=== PATIENT | male | born 1940 | race American Indian/Alaskan Native ===

== ENCOUNTER 2017-10-03 09:46 | Inpatient (IN) | payer MEDICARE ==
[2017-10-03 09:46] VITALS: BMI 28.8
[~2017-10-03 09:46] MED LIST: Insulin NPH Human 100 Units/ml Inj SC ONE
[2017-10-03 11:24] LABS: BASO # 0.1 K/uL (0.0-0.2); BASO % 1.2 % (0.0-2.0); EOS # 0.2 K/uL (0.0-0.7); EOS % 2.1 % (0.0-4.0); HEMOGLOBIN 14.3 g/dL (12.0-18.0); LYMPH # 1.4 K/uL (1.0-4.3); MEAN CELL VOLUME 89.6 fl (80.0-94.0); MEAN CORPUSCULAR HEMOGLOBIN 30.3 pg (27.0-31.0); MEAN CORPUSCULAR HGB CONC 33.8 g/dL (33.0-37.0); MEAN PLATELET VOLUME 8.5 fl (7.2-11.7); MONO # 0.8 K/uL (0.0-0.8); MONO % 8.9 % (0.0-10.0); NEUT # 6.2 K/uL (1.8-7.0); NEUT % 71.8 % (50.0-75.0); RBC 4.72 Mil/uL (4.40-5.90); RED CELL DISTRIBUTION WIDTH 16.1 % (11.5-14.5); WHITE BLOOD COUNT 8.6 K/uL (4.8-10.8)
[2017-10-03 11:36] LABS: PROTHROMBIN TIME 22.5 Seconds (9.8-13.1)
[2017-10-03 11:37] LABS: PARTIAL THROMBOPLASTIN TIME 46.4 Seconds (25.6-37.1)
[2017-10-03 11:55] LABS: CALCIUM 9.4 mg/dL (8.4-10.2)
[2017-10-03 12:07] LABS: TROPONIN I 0.05 ng/mL (0.00-0.120)
--- NOTE | 2017-10-03 12:15 | RAD ---
PROCEDURE: CHEST RADIOGRAPH, 1 VIEW HISTORY: dyspnea COMPARISON: Comparison chest 06/23/2016 FINDINGS: LUNGS: Increased bronchovascular markings suggesting underlying mild pulmonary edema with more confluent opacities in the mid to lower lung zones. Note again made of multiple tiny radiopaque densities overlying the left lower lung field. . Clinical correlation recommended. PLEURA: Questionable tiny bilateral effusions. No apparent pneumothorax CARDIOVASCULAR: Mild cardiomegaly. Sternotomy wires again noted OSSEOUS STRUCTURES: No significant abnormalities. VISUALIZED UPPER ABDOMEN: Normal. OTHER FINDINGS: None. IMPRESSION: Increased bronchovascular markings suggesting underlying mild pulmonary edema with more confluent opacities in the mid to lower lung zones. Note again made of multiple tiny radiopaque densities overlying the left lower lung field. . Clinical correlation recommended. . Questionable tiny bilateral effusions.
--- NOTE | 2017-10-03 13:39 | ED PDOC ---
HPI: SOB/CHF/COPD Time Seen by Provider: 10/03/17 10:20 Chief Complaint (Nursing): Shortness Of Breath Chief Complaint (Provider): Difficulty breathing History Per: Patient History/Exam Limitations: no limitations Onset/Duration Of Symptoms: Days (3) Associated Symptoms: Ankle/Leg Swelling Additional History Per: Patient Additional Complaint(s): 77yo male with history of CHF with low ejection fraction, CAD, CABG, presents to ED with complaints of difficulty breathing for the past 3 days. Patient also reports increased leg swelling for 3 days as well. He states he is compliant with his medication including his water pills but recently, he has been drinking more soda and intaking more salt. He also states he has been sleeping on a warm pillow and in an elevated position. He is not on oxygen at home. He denies any chest pain, fever or cough. Patient has no other medical complaints. Past Medical History Reviewed: Historical Data, Nursing Documentation, Vital Signs Vital Signs: Last Vital Signs Temp 97.7 F 10/04/17 20:01 Pulse 62 10/04/17 20:01 Resp 20 10/04/17 20:01 BP 152/71 H 10/04/17 21:27 Pulse Ox 94 L 10/04/17 20:01 - Medical History PMH: Arthritis, Atrial Fibrillation, CAD, Cardia Arrhythmia, CHF, COPD, CVA, Diabetes, HTN, Hypercholesterolemia, Peripheral Edema, Pneumonia Denies: Alzheimer's Disease, Anemia, Anxiety, Asthma, Bipolar Disorder, Bronchitis, Crohn's Disease, Dementia, Depression, Diverticulitis, Emphysema, Fractures, Gastritis, Gall Bladder Disease, HIV, Hyperthyroidism, Hypothyroidism , Kidney Stones, Migraine, Mitral Valve Prolapse, Multiple Sclerosis, Osteoporosis, Pancreatitis, Paranoia, Parkinson's Disease, Post Traumatic Stress Disorder, Pulmonary Embolism, Chronic Kidney Disease, Rheumatoid Arthritis, Schizophrenia, Seizures, Sickle Cell Disease, Sexually Transmitted Disease, Sleep Apnea, TIA - Surgical History Surgical History: CABG (5x) Denies: Appendectomy, Carotid Endarterectomy, Cholecystectomy, Coronary Stent , Pacemaker, Tonsillectomy - Family History Family History: States: Diabetes, Hypertension - Home Medications Home Medications: Ambulatory Orders Medication Instructions Recorded Aspirin [Ecotrin] 81 mg PO DAILY 10/03/17 Furosemide [Lasix] 40 mg PO QPM 10/03/17 Furosemide [Lasix] 80 mg PO QAM 10/03/17 Insulin Human Isophane (NPH) 30 unit SC BID 10/03/17 [Novolin N] Metoprolol Tartrate [Lopressor] 25 mg PO DAILY 10/03/17 Rivaroxaban [Xarelto] 15 mg PO BID 10/03/17 Zolpidem [Ambien] 10 mg PO HS 10/03/17 amLODIPine [Norvasc] 10 mg PO DAILY 10/03/17 - Allergies Allergies/Adverse Reactions: Allergies Allergy/AdvReac Type Severity Reaction Status Date / Time No Known Allergies Allergy Verified 03/26/16 18:10 Review of Systems ROS Statement: Except As Marked, All Systems Reviewed And Found Negative Constitutional: Negative for: Fever Cardiovascular: Negative for: Chest Pain Respiratory: Positive for: Shortness of Breath. Negative for: Cough Musculoskeletal: Positive for: Other (leg swelling) Physical Exam - Reviewed Nursing Documentation Reviewed: Yes Vital Signs Reviewed: Yes - Physical Exam Appears: Positive for: Non-toxic, No Acute Distress Head Exam: Positive for: ATRAUMATIC, NORMAL INSPECTION, NORMOCEPHALIC Skin: Positive for: Normal Color Eye Exam: Positive for: Normal appearance, EOMI, PERRL Neck: Positive for: Supple Cardiovascular/Chest: Positive for: Regular Rate, Rhythm, Edema Respiratory: Positive for: Normal Breath Sounds. Negative for: Wheezing Gastrointestinal/Abdominal: Positive for: Normal Exam, Soft. Negative for: Tenderness Extremity: Positive for: Normal ROM, Pedal Edema (bilateral pedal and lower leg pitting edema, symmetical). Negative for: Calf Tenderness Neurologic/Psych: Positive for: Alert, Oriented - Laboratory Results Result Diagrams: 10/03/17 11:17 10/04/17 04:20 - ECG ECG: Positive for: Interpreted By Me, Viewed By Me ECG Rhythm: Positive for: Normal QRS, Atrial Fibrillation (without RVR). Negative for: ST/T Changes Rate: 71 O2 Sat by Pulse Oximetry: 96 Medical Decision Making Medical Decision Making: Impression: Dyspnea Differential: CHF exacerbation, ACS, other conditions considered but not listed Plan: -- Labs -- EKG -- Lasix 40 mg IVP -- Nitro 0.4 mg SL Time: 1213 CXR FINDINGS: LUNGS: Increased bronchovascular markings suggesting underlying mild pulmonary edema with more confluent opacities in the mid to lower lung zones. Note again made of multiple tiny radiopaque densities overlying the left lower lung field. . Clinical correlation recommended. PLEURA: Questionable tiny bilateral effusions. No apparent pneumothorax CARDIOVASCULAR: Mild cardiomegaly. Sternotomy wires again noted OSSEOUS STRUCTURES: No significant abnormalities. VISUALIZED UPPER ABDOMEN: Normal. OTHER FINDINGS: None. IMPRESSION: Increased bronchovascular markings suggesting underlying mild pulmonary edema with more confluent opacities in the mid to lower lung zones. Note again made of multiple tiny radiopaque densities overlying the left lower lung field. . Clinical correlation recommended. . Questionable tiny bilateral effusions. Time: 1215 Labs and CXR reveiewed and case discussed with Dr. Suarez who will admit patient under his own service. Case discussed with Dr. Aaron, patient's PCP who is agreeable with plan for admission under Dr. Suarez. Scribe Attestation: Documented by Emerita Renteria, acting as a scribe for Wei Lackey MD. Provider Scribe Attestation: All medical record entries made by the Scribe were at my direction and personally dictated by me. I have reviewed the chart and agree that the record accurately reflects my personal performance of the history, physical exam, medical decision making, and the department course for this patient. I have also personally directed, reviewed, and agree with the discharge instructions and disposition. Disposition - Clinical Impression Clinical Impression: CHF exacerbation - Patient ED Disposition Is Patient to be Admitted: Yes Discussed With : Eric Suarez Doctor Will See Patient In The: Hospital Counseled Patient/Family Regarding: Studies Performed, Diagnosis - Disposition Disposition Time: 12:00 Condition: FAIR - Pt Status Changed To: Hospital Disposition Of: Observation - POA Present On Arrival: Poor Glycemic Control
[2017-10-03] MEDS ORDERED: Influenza Vaccine 18yr & older 0.5 ML/45 MCG SYR IM ONE (15:03)
[2017-10-03] MEDS: Insulin NPH Human 100 Units/ml Inj SC SCH (17:30)
--- NOTE | 2017-10-03 19:59 | CARD ---
APPROVED REPORT EKG Measurement Heart [id number] <Conclusion> Atrial fibrillation Abnormal ECG baseline and motion artefact
[2017-10-04 06:05] LABS: BLOOD UREA NITROGEN 21 mg/dl (9-20); CALCIUM 8.9 mg/dL (8.4-10.2); GFR AFRICAN-AMERICAN > 60; GFR NON-AFRICAN AMERICAN 53
[2017-10-04] MEDS: Insulin NPH Human 100 Units/ml Inj SC SCH ×2 (08:50→16:19)
[2017-10-04] MEDS ORDERED: Potassium Chloride 10 mEq ER Tab PO ONE (09:01)
--- NOTE | 2017-10-04 09:08 | CP.PCM.HP ---
History of Present Illness - History of Present Illness History of Present Illness: This 77-year-old man with a long history of diabetes and hypertension and coronary artery disease which required coronary bypass graft surgery more than 15 years back. He has had subsequent coronary stenting. He has diffuse peripheral vascular disease requiring amputation off her great toe on the right side. He is an ex-smoker with a history of COPD. He has quit smoking more than 15 years back. He has had long-standing chronic kidney disease as a consequence of diabetes and hypertension. He has had atrial fibrillation for which he has been taking an oral anticoagulation. He has had severe left ventricular systolic dysfunction resulting in congestive cardiac failure class 3-4. The patient also has had BPH and required surgery approximately 3 years back following which she had developed severe sepsis and profound renal failure which gradually resolved. Patient was briefly on ventilatory support. The patient admits to occasional indiscretion in his diet with excessive salt included in it. He reports gradually developing worsening dyspnea on exertion and eventual orthopnea. He finally came to the emergency room yesterday and was hospitalized with significant pedal edema and dyspnea. After intravenous Lasix was administered the patient reports significant diuresis and some relief of his dyspnea. Review of his medications at admissions reveals that he was not taking Aldactone and losartan. Physical examination shows an elderly -[place] male who is able to lie slightly propped up in bed and carry on a conversation. His telemetry shows atrial fibrillation with a heart rate that ranges between 70 and 80 bpm irregularly irregular. His blood pressure was 140/80 mmHg. His jugular venous pressure was mildly elevated there was pitting edema over both lower extremities extending up to his knees. His pedal pulses were not palpable. His extremities were warm there was no central or peripheral cyanosis. His buccal mucosa was pink. Scar of sternotomy was evident on his chest. The apex is palpable in the sixth a slightly heaving in character. The first heart sound was normal second heart sound was also normal along apical systolic murmur was audible of mitral regurgitation there were a few scattered rales at both bases and his abdomen was soft and liver and spleen were not palpable. His electrocardiogram showed atrial fibrillation with nonspecific ST-T changes. His lab data showed hemoglobin and hematocrit of 14.3 g and 42.3% respectively. The baby's account and platelet counts were within normal limits. His BUN/ creatinine where 21 and 1.3 mg percent his potassium this morning was 3.2 mg/L. The troponin was negative for any evidence of myocyte injury his proBNP was 1390 pg per mL his chest x-ray was suggestive of mild pulmonary edema. Impression: Congestive cardiac failure which is left ventricular systolic and chronic. Chronic atrial fibrillation. Coronary artery disease with old myocardial infarcts and status post coronary bypass graft surgery. Severe severe peripheral arterial disease with status post amputation of right great toe. Diabetes mellitus and hypertension. Chronic kidney disease stage III. COPD. The patient will receive intravenous furosemide to diurese him and he has been started back on losartan and Aldactone. I will monitor his potassium level and BUN/creatinine closely. Present on Admission - Present on Admission Any Indicators Present on Admission: No Past Patient History - Tetanus Immunizations Tetanus Immunization: Unknown - Past Medical History & Family History Past Medical History?: Yes - Past Social History Smoking Status: Former Smoker - CARDIAC Hx Atrial Fibrillation: Yes Hx Cardia Arrhythmia: Yes Hx Congestive Heart Failure: Yes Hx Hypercholesterolemia: Yes Hx Hypertension: Yes Hx Mitral Valve Prolapse: No Hx Pacemaker: No Hx Peripheral Edema: Yes - PULMONARY Hx Asthma: No Hx Bronchitis: No Hx Chronic Obstructive Pulmonary Disease (COPD): Yes Hx Emphysema: No Hx Pneumonia: Yes Hx Pulmonary Embolism: No Hx Sleep Apnea: No - NEUROLOGICAL Hx Alzheimer's Disease: No Hx Dementia: No Hx Migraine: No Hx Multiple Sclerosis: No Hx Parkinson's Disease: No Hx Seizures: No Hx Transient Ischemic Attacks (TIA): No - HEENT Hx HEENT Problems: Yes - RENAL Hx Chronic Kidney Disease: No Hx Kidney Stones: No - ENDOCRINE/METABOLIC Hx Hyperthyroidism: No Hx Hypothyroidism: No - HEMATOLOGICAL/ONCOLOGICAL Hx Anemia: No Hx Human Immunodeficiency Virus (HIV): No Hx Sickle Cell Disease: No - INTEGUMENTARY Hx Dermatological Problems: No - MUSCULOSKELETAL/RHEUMATOLOGICAL Hx Arthritis: Yes Hx Falls: No Hx Fractures: No Hx Osteoporosis: No Hx Rheumatoid Arthritis: No - GASTROINTESTINAL Hx Crohn's Disease: No Hx Diverticulitis: No Hx Gall Bladder Disease: No Hx Gastritis: No Hx Pancreatitis: No - GENITOURINARY/GYNECOLOGICAL Hx Sexually Transmitted Disorders: No - PSYCHIATRIC Hx Anxiety: No Hx Bipolar Disorder: No Hx Depression: No Hx Paranoia: No Hx Post Traumatic Stress Disorder: No Hx Schizophrenia: No Hx Substance Use: No - SURGICAL HISTORY Hx Appendectomy: No Hx Carotid Endarterectomy: No Hx Cholecystectomy: No Hx Coronary Artery Bypass Graft: Yes (5x) Hx Coronary Stent: No Hx Tonsillectomy: No - ANESTHESIA Hx Anesthesia: Yes Hx Anesthesia Reactions: No Hx Malignant Hyperthermia: No Meds Allergies/Adverse Reactions: Allergies Allergy/AdvReac Type Severity Reaction Status Date / Time No Known Allergies Allergy Verified 03/26/16 18:10 Results - Vital Signs Recent Vital Signs: Last Vital Signs Temp 98.2 F 10/04/17 08:01 Pulse 52 L 10/04/17 08:47 Resp 18 10/04/17 08:01 BP 166/86 H 10/04/17 08:47 Pulse Ox 94 L 10/04/17 08:01 - Labs Result Diagrams: 10/03/17 11:17 10/04/17 04:20 Labs: Laboratory Results - last 24 hr 10/03/17 10/03/17 10/03/17 11:17 11:17 11:17 WBC 8.6 RBC 4.72 Hgb 14.3 Hct 42.3 MCV 89.6 MCH 30.3 MCHC 33.8 RDW 16.1 H Plt Count 436 H MPV 8.5 Neut % (Auto) 71.8 Lymph % (Auto) 16.0 L [place] % (Auto) 8.9 Eos % (Auto) 2.1 Baso % (Auto) 1.2 Neut # (Auto) 6.2 Lymph # (Auto) 1.4 [place] # (Auto) 0.8 Eos # (Auto) 0.2 Baso # (Auto) 0.1 PT 22.5 H INR 2.0 H APTT 46.4 H Sodium 147 Potassium 3.7 Chloride 104 Carbon Dioxide 27 Anion Gap 20 BUN 25 H Creatinine 1.4 Est GFR ( Amer) 59 Est GFR (Non-Af Amer) 49 POC Glucose (mg/dL) Random Glucose 97 Calcium 9.4 Troponin I 0.0500 NT-Pro-B Natriuret Pep 1390 H 10/03/17 10/03/17 10/04/17 17:26 21:40 04:20 WBC RBC Hgb Hct MCV MCH MCHC RDW Plt Count MPV Neut % (Auto) Lymph % (Auto) [place] % (Auto) Eos % (Auto) Baso % (Auto) Neut # (Auto) Lymph # (Auto) [place] # (Auto) Eos # (Auto) Baso # (Auto) PT INR APTT Sodium 146 Potassium 3.2 L Chloride 107 Carbon Dioxide 28 Anion Gap 14 BUN 21 H Creatinine 1.3 Est GFR ( Amer) > 60 Est GFR (Non-Af Amer) 53 POC Glucose (mg/dL) 89 71 Random Glucose 50 L Calcium 8.9 Troponin I NT-Pro-B Natriuret Pep 10/04/17 10/04/17 06:06 07:01 WBC RBC Hgb Hct MCV MCH MCHC RDW Plt Count MPV Neut % (Auto) Lymph % (Auto) [place] % (Auto) Eos % (Auto) Baso % (Auto) Neut # (Auto) Lymph # (Auto) [place] # (Auto) Eos # (Auto) Baso # (Auto) PT INR APTT Sodium Potassium Chloride Carbon Dioxide Anion Gap BUN Creatinine Est GFR ( Amer) Est GFR (Non-Af Amer) POC Glucose (mg/dL) 47 L 88 Random Glucose Calcium Troponin I NT-Pro-B Natriuret Pep
[2017-10-05 06:02] LABS: ALB/GLOB RATIO 0.9 (1.0-2.1); ALBUMIN 3.6 g/dL (3.5-5.0); ALT/SGPT 25 U/L (21-72); AST/SGOT 27 U/L (17-59); BLOOD UREA NITROGEN 21 mg/dl (9-20); GFR AFRICAN-AMERICAN > 60; GFR NON-AFRICAN AMERICAN 53
[2017-10-05] MEDS ORDERED: Insulin NPH Human 100 Units/ml Inj SC ONE (06:41)
[2017-10-05] MEDS ORDERED: Potassium Chloride 20 mEq ER Tab PO ONE (06:46)
--- NOTE | 2017-10-05 06:46 | CP.PCM.PN ---
Subjective - Date & Time of Evaluation Date of Evaluation: 10/05/17 Time of Evaluation: 06:40 - Subjective Subjective: Diuresed well following IV Lasix Still reports moderate degree of dyspnoea No orthopnoea A Fib at 70-80 BPM, BP 130/70 mm Hg JVP mildly elevated, pedal oedema + (receeding) Pt's accu-checks have been in 40s (yesterday and today) In spite of a sandwitch before breakfast Have reduced Insulin dose from 30 units in PM to 20 units Will get IV Lasix today as well Today's Labs: K+ still low (replacement ordered) Renal function stable. Objective - Vital Signs/Intake and Output Vital Signs (last 24 hours): Temp Pulse Resp BP Pulse Ox 98.3 F 96 H 20 147/62 98 10/05/17 05:00 10/05/17 05:00 10/05/17 05:00 10/05/17 05:00 10/05/17 05:00 Intake and Output: 10/04/17 10/05/17 18:59 06:59 Intake Total 1000 Output Total 2 Balance 998 - Medications Medications: Current Medications Amlodipine Besylate (Norvasc) 10 mg PO DAILY [facility] Last Admin: 10/04/17 08:45 Dose: 10 mg Aspirin (Ecotrin) 81 mg PO DAILY [facility] Last Admin: 10/04/17 08:45 Dose: 81 mg Furosemide (Lasix) 40 mg IVP BID [facility] Last Admin: 10/04/17 21:27 Dose: 40 mg Insulin Human NPH (Humulin N) 20 units SC ONCE ONE Stop: 10/05/17 06:42 Losartan Potassium (Cozaar) 25 mg PO DAILY [facility] Last Admin: 10/04/17 10:39 Dose: 25 mg Metoprolol Tartrate (Lopressor) 25 mg PO DAILY [facility] Last Admin: 10/04/17 08:47 Dose: 25 mg Rivaroxaban (Xarelto) 15 mg PO BID [facility] PRN Reason: Protocol Last Admin: 10/04/17 16:20 Dose: 15 mg Spironolactone (Aldactone) 25 mg PO DAILY [facility] Last Admin: 10/04/17 10:37 Dose: 25 mg Zolpidem Tartrate (Ambien) 5 mg PO HS [facility] Last Admin: 10/04/17 23:26 Dose: 5 mg - Labs Labs: 10/03/17 11:17 10/05/17 04:25 PT 22.5 Seconds (9.8-13.1) H 10/03/17 11:17 INR 2.0 (0.9-1.2) H 10/03/17 11:17 APTT 46.4 Seconds (25.6-37.1) H 10/03/17 11:17
[2017-10-05] MEDS: Insulin NPH Human 100 Units/ml Inj SC SCH (09:00)
[2017-10-05] MEDS ORDERED: Insulin NPH Human 100 Units/ml Inj SC SCH (22:00)
[2017-10-06 07:15] LABS: ALB/GLOB RATIO 0.9 (1.0-2.1); ALBUMIN 3.4 g/dL (3.5-5.0); ALT/SGPT 28 U/L (21-72); AST/SGOT 34 U/L (17-59); BLOOD UREA NITROGEN 21 mg/dl (9-20); CALCIUM 9.1 mg/dL (8.4-10.2); GFR AFRICAN-AMERICAN > 60; GFR NON-AFRICAN AMERICAN 58
[2017-10-06] MEDS: Insulin NPH Human 100 Units/ml Inj SC SCH (09:14)
[2017-10-06] MEDS ORDERED: Insulin NPH Human 100 Units/ml Inj SC SCH (09:38)
--- NOTE | 2017-10-06 09:39 | CP.PCM.PN ---
Subjective - Date & Time of Evaluation Date of Evaluation: 10/06/17 Time of Evaluation: 09:25 - Subjective Subjective: Fasting blood sugar was 80 mg% (was 40mg yesterday) Dose of Insulin had been reduced from 30units to 20units yesterday Insulin dose reduced further to 15 units in PM Still moderate dyspnoea on ambulation Pedal oedema less but still present A Fib at 68 BPM/ BP 140/76 mm Hg No S3 gallop OCC BASAL RALES+ Will get Lasix IV twice a day Labs: Creatinin1.2 mg% (Electrolytes normal) Lactulose for constipation Objective - Vital Signs/Intake and Output Vital Signs (last 24 hours): Temp Pulse Resp BP Pulse Ox 97.4 F L 73 20 167/84 H 93 L 10/06/17 08:18 10/06/17 09:13 10/06/17 08:18 10/06/17 09:13 10/06/17 08:18 - Medications Medications: Current Medications Amlodipine Besylate (Norvasc) 10 mg PO DAILY [facility] Last Admin: 10/06/17 09:13 Dose: 10 mg Aspirin (Ecotrin) 81 mg PO DAILY [facility] Last Admin: 10/06/17 09:13 Dose: 81 mg Furosemide (Lasix) 40 mg IVP BID [facility] Last Admin: 10/06/17 09:10 Dose: 40 mg Insulin Human NPH (Humulin N) 30 units SC QAM [facility] Last Admin: 10/06/17 09:14 Dose: 30 units Insulin Human NPH (Humulin N) 15 units SC HS [facility] Losartan Potassium (Cozaar) 25 mg PO DAILY [facility] Last Admin: 10/06/17 09:13 Dose: 25 mg Metoprolol Tartrate (Lopressor) 25 mg PO DAILY [facility] Last Admin: 10/06/17 09:13 Dose: 25 mg Rivaroxaban (Xarelto) 15 mg PO BID [facility] PRN Reason: Protocol Last Admin: 10/06/17 09:11 Dose: 15 mg Spironolactone (Aldactone) 25 mg PO DAILY [facility] Last Admin: 10/06/17 09:12 Dose: 25 mg Zolpidem Tartrate (Ambien) 5 mg PO HS [facility] Last Admin: 10/05/17 22:48 Dose: 5 mg - Labs Labs: 10/03/17 11:17 10/06/17 05:39 PT 22.5 Seconds (9.8-13.1) H 10/03/17 11:17 INR 2.0 (0.9-1.2) H 10/03/17 11:17 APTT 46.4 Seconds (25.6-37.1) H 10/03/17 11:17
[2017-10-07 05:13] VITALS: RESP 20
[2017-10-07 07:49] LABS: ALB/GLOB RATIO 0.9 (1.0-2.1); ALBUMIN 3.4 g/dL (3.5-5.0); ALT/SGPT 23 U/L (21-72); AST/SGOT 39 U/L (17-59); BLOOD UREA NITROGEN 22 mg/dl (9-20); CALCIUM 9.2 mg/dL (8.4-10.2); GFR AFRICAN-AMERICAN > 60; GFR NON-AFRICAN AMERICAN 58
[2017-10-07 08:05] VITALS: BP 160/69; PULSE 84; TEMP 98.1; O2SAT 94
[2017-10-07] MEDS ORDERED: Potassium Chloride 20 mEq ER Tab PO ONE (08:12)
[2017-10-07] MEDS: Insulin NPH Human 100 Units/ml Inj SC SCH (08:23)
--- NOTE | 2017-10-07 09:35 | CP.PCM.PN ---
Subjective - Date & Time of Evaluation Date of Evaluation: 10/07/17 Time of Evaluation: 09:15 - Subjective Subjective: Has walked around nurses stn 6 times yesterday! Has diuresed well with IV lasix A Fib at 70 BPM BP 140/74 mm Hg Pedal oedema has mostly resolved JVP flat, no rales Creatinin1.2 mg (1.4 mg at admission!) Will aloow pt to go home on present Rx Labs in 1 Wk, see me in 10 day. Objective - Vital Signs/Intake and Output Vital Signs (last 24 hours): Temp Pulse Resp BP Pulse Ox 98.1 F 84 20 160/69 H 94 L 10/07/17 08:05 10/07/17 08:25 10/07/17 08:05 10/07/17 08:25 10/07/17 08:05 - Medications Medications: Current Medications Amlodipine Besylate (Norvasc) 10 mg PO DAILY [facility] Last Admin: 10/07/17 08:25 Dose: 10 mg Aspirin (Ecotrin) 81 mg PO DAILY [facility] Last Admin: 10/07/17 08:23 Dose: 81 mg Furosemide (Lasix) 40 mg IVP BID [facility] Last Admin: 10/07/17 08:24 Dose: 40 mg Insulin Human NPH (Humulin N) 30 units SC QAM [facility] Last Admin: 10/07/17 08:23 Dose: 30 units Insulin Human NPH (Humulin N) 15 units SC HS [facility] Last Admin: 10/06/17 22:18 Dose: 15 u Losartan Potassium (Cozaar) 25 mg PO DAILY [facility] Last Admin: 10/07/17 08:23 Dose: 25 mg Metoprolol Tartrate (Lopressor) 25 mg PO DAILY [facility] Last Admin: 10/07/17 08:25 Dose: 25 mg Rivaroxaban (Xarelto) 15 mg PO BID [facility] PRN Reason: Protocol Last Admin: 10/07/17 08:25 Dose: 15 mg Spironolactone (Aldactone) 25 mg PO DAILY [facility] Last Admin: 10/07/17 08:22 Dose: 25 mg - Labs Labs: 10/03/17 11:17 10/07/17 05:30 PT 22.5 Seconds (9.8-13.1) H 10/03/17 11:17 INR 2.0 (0.9-1.2) H 10/03/17 11:17 APTT 46.4 Seconds (25.6-37.1) H 10/03/17 11:17
--- NOTE | 2017-10-10 08:08 | CP.PCM.DIS ---
Provider - Provider Date of Admission: 10/03/17 12:15 Attending physician: Eric Suarez MD Time Spent in preparation of Discharge (in minutes): 30 Hospital Course - Lab Results Lab Results: Most Recent Lab Values WBC 8.6 K/uL (4.8-10.8) 10/03/17 11:17 RBC 4.72 Mil/uL (4.40-5.90) 10/03/17 11:17 Hgb 14.3 g/dL (12.0-18.0) 10/03/17 11:17 Hct 42.3 % (35.0-51.0) 10/03/17 11:17 MCV 89.6 fl (80.0-94.0) 10/03/17 11:17 MCH 30.3 pg (27.0-31.0) 10/03/17 11:17 MCHC 33.8 g/dL (33.0-37.0) 10/03/17 11:17 RDW 16.1 % (11.5-14.5) H 10/03/17 11:17 Plt Count 436 K/uL (130-400) H 10/03/17 11:17 MPV 8.5 fl (7.2-11.7) 10/03/17 11:17 Neut % (Auto) 71.8 % (50.0-75.0) 10/03/17 11:17 Lymph % (Auto) 16.0 % (20.0-40.0) L 10/03/17 11:17 [place] % (Auto) 8.9 % (0.0-10.0) 10/03/17 11:17 Eos % (Auto) 2.1 % (0.0-4.0) 10/03/17 11:17 Baso % (Auto) 1.2 % (0.0-2.0) 10/03/17 11:17 Neut # (Auto) 6.2 K/uL (1.8-7.0) 10/03/17 11:17 Lymph # (Auto) 1.4 K/uL (1.0-4.3) 10/03/17 11:17 [place] # (Auto) 0.8 K/uL (0.0-0.8) 10/03/17 11:17 Eos # (Auto) 0.2 K/uL (0.0-0.7) 10/03/17 11:17 Baso # (Auto) 0.1 K/uL (0.0-0.2) 10/03/17 11:17 PT 22.5 Seconds (9.8-13.1) H 10/03/17 11:17 INR 2.0 (0.9-1.2) H 10/03/17 11:17 APTT 46.4 Seconds (25.6-37.1) H 10/03/17 11:17 Sodium 146 mmol/l (132-148) 10/07/17 05:30 Potassium 3.5 MMOL/L (3.6-5.0) L 10/07/17 05:30 Chloride 105 mmol/L (98-107) 10/07/17 05:30 Carbon Dioxide 29 mmol/L (22-30) 10/07/17 05:30 Anion Gap 16 (10-20) 10/07/17 05:30 BUN 22 mg/dl (9-20) H 10/07/17 05:30 Creatinine 1.2 mg/dl (0.8-1.5) 10/07/17 05:30 Est GFR ( Amer) > 60 10/07/17 05:30 Est GFR (Non-Af Amer) 58 10/07/17 05:30 POC Glucose (mg/dL) 89 mg/dL (65-110) 10/07/17 05:23 Random Glucose 98 mg/dL (75-110) 10/07/17 05:30 Calcium 9.2 mg/dL (8.4-10.2) 10/07/17 05:30 Total Bilirubin 1.7 mg/dl (0.2-1.3) H 10/07/17 05:30 AST 39 U/L (17-59) 10/07/17 05:30 ALT 23 U/L (21-72) 10/07/17 05:30 Alkaline Phosphatase 95 U/L (38-126) 10/07/17 05:30 Troponin I 0.0500 ng/mL (0.00-0.120) 10/03/17 11:17 NT-Pro-B Natriuret Pep 1390 pg/ml (0-900) H 10/03/17 11:17 Total Protein 7.3 G/DL (6.3-8.2) 10/07/17 05:30 Albumin 3.4 g/dL (3.5-5.0) L 10/07/17 05:30 Globulin 3.9 gm/dL (2.2-3.9) 10/07/17 05:30 Albumin/Globulin Ratio 0.9 (1.0-2.1) L 10/07/17 05:30 - Hospital Course Hospital Course: This 77-year-old -[place] man, with known coronary artery disease were required coronary bypass graft surgery approximately 13-14 years back and was known to have severe congestive cardiac failure with chronic atrial fibrillation for which she takes an oral anticoagulation, came into the hospital complaining of profound shortness of breath and orthopnea for the preceding 3 days, and was found to have significant volume overload. The patient was a hypertensive and diabetic was known to have chronic kidney disease stage III, and severe peripheral vascular disease due to which she had lost the great toe on his right foot. The patient was being treated with an QUENTIN inhibitor and a beta edilma as well as a loop diuretics along with Aldactone. On arrival in the emergency room he was found to have pedal edema mildly elevated jugular venous pressure and pulmonary congestion on chest x-ray. Physical examination shows an elderly man who was propped up in bed and reported marked resolution of his symptoms after intravenous diuretics was given in the emergency room and the patient has had significant diuresis. Over the next few days the patient was given intravenous furosemide 40 mg twice a day along with oral Aldactone and reported significant diuresis. His BUN/ creatinine and electrolytes were closely monitored and both of these remained stable. His hemoglobin and hematocrit were 14.3 g and 42.3% respectively. His electrocardiogram showed atrial fibrillation with nonspecific ST-T wave changes. No Q waves were detected on his electro-cardiogram. An echocardiogram done in March 2016 had shown severe generalized hypokinesia with an estimated left ventricular ejection fraction in the range of 25-30% along with significant mitral regurgitation and an elevated right ventricular systolic pressure. The patient diuresed well and was finally sent home taking his medications which consisted off an ARB and Aldactone as well as 40 mg of Lasix taken twice a day. His does off insulin was reduced to 15 units in the evening from 30 units in the evening when the patient was found to be significantly hypoglycemic (blood sugar of 40 and 44 mg percent) on Accu-Cheks done early in the morning. He continued to use 30 units of insulin in the morning. The patient was instructed to weigh himself every day and was stopped again a blood test within 7 days of his discharge so that his BUN/creatinine as well as potassium could be checked. He was asked to see me within 10 days of his discharge for follow-up examination. His final diagnosis was congestive cardiac failure which was left ventricular, systolic and acute on chronic. Coronary artery disease with status post coronary bypass graft surgery. Chronic atrial fibrillation. Diffuse peripheral arterial disease with status post amputation of his right great toe. Chronic kidney disease stage III. Diabetes mellitus and hypertension. Benign prostatitic hypertrophy with status post TURP. COPD. The patient's condition at the time of discharge was much improved. Diet medication activities explained to him. He will return for a follow-up visit in my office within 10 days. Discharge Exam - Head Exam Head Exam: ATRAUMATIC, NORMAL INSPECTION, NORMOCEPHALIC Discharge Plan - Discharge Medications Prescriptions: Spironolactone [Aldactone] 25 mg PO DAILY #30 tab - Follow Up Plan Condition: FAIR Disposition: HOME/ ROUTINE Instructions: Heart Failure, Adult (DC), Exacerbation of COPD (DC) Additional Instructions: follow up with on 10/13/17 at 3:20pm Referrals: Eric Suarez MD [Family Provider] -
== END 2017-10-07 11:30 | disposition home or self-care (01) | DRG 291 ==
LOC: H.ER 09:46 → OBSVTOIN 12:15 → H.ERHOLD 12:15 → H.TEL 14:49
PROVIDERS: ADMIT Internal Medicine Cardiovascular Disease; ATTEND Internal Medicine Cardiovascular Disease
PROC: 3E0234Z Introduction of Serum, Toxoid and Vaccine into Muscle, Percutaneous Approach (ICD-10-PCS; principal; 2017-10-06)
DX: I13.0 Hypertensive heart and chronic kidney disease with heart failure and stage 1 through stage 4 chronic kidney disease, or unspecified chronic kidney disease (principal); I50.23 Acute on chronic systolic (congestive) heart failure; E11.22 Type 2 diabetes mellitus with diabetic chronic kidney disease; E11.51 Type 2 diabetes mellitus with diabetic peripheral angiopathy without gangrene; I48.2 Chronic atrial fibrillation; I34.0 Nonrheumatic mitral (valve) insufficiency; N18.3 Chronic kidney disease, stage 3 (moderate); N40.0 Benign prostatic hyperplasia without lower urinary tract symptoms; Z89.411 Acquired absence of right great toe; I25.10 Atherosclerotic heart disease of native coronary artery without angina pectoris; Z95.1 Presence of aortocoronary bypass graft; Z95.5 Presence of coronary angioplasty implant and graft; J44.9 Chronic obstructive pulmonary disease, unspecified; Z86.73 Personal history of transient ischemic attack (TIA), and cerebral infarction without residual deficits; E78.00 Pure hypercholesterolemia, unspecified; Z87.891 Personal history of nicotine dependence; M19.90 Unspecified osteoarthritis, unspecified site; Z23 Encounter for immunization; I25.2 Old myocardial infarction

== ENCOUNTER 2018-07-04 09:21 | Inpatient (IN) | payer MEDICARE ==
[2018-07-04 09:22] VITALS: BMI 28.8
--- NOTE | 2018-07-04 10:14 | ED PDOC ---
HPI: SOB/CHF/COPD Time Seen by Provider: 07/04/18 09:42 Chief Complaint (Nursing): Shortness Of Breath Chief Complaint (Provider): Shortness of breath History Per: Patient History/Exam Limitations: no limitations Onset/Duration Of Symptoms: Other (x2 weeks) Current Symptoms Are (Timing): Still Present Additional Complaint(s): 78 year old male, with a past medical history of atrial fibrillation, CAD, and CHF, presents to the ED with shortness of breath for the past 2 weeks. Patient denies chest pain. He reports he has been noncompliant with Lasix and was restarted by Dr. Schroeder without relief. He has a 10 step dyspnea on exertion. He denies orthopnea. PMD: Eric Mandel V Past Medical History Reviewed: Historical Data, Nursing Documentation, Vital Signs Vital Signs: Last Vital Signs Temp 97.5 F L 07/04/18 09:30 Pulse 80 07/04/18 09:30 Resp 20 07/04/18 09:30 BP 125/69 07/04/18 09:30 Pulse Ox 95 07/04/18 09:30 - Medical History PMH: Arthritis, Atrial Fibrillation, CAD, Cardia Arrhythmia, CHF, COPD, CVA, Diabetes, HTN, Hypercholesterolemia, Peripheral Edema, Pneumonia Denies: Alzheimer's Disease, Anemia, Anxiety, Asthma, Bipolar Disorder, Bronchitis, Crohn's Disease, Dementia, Depression, Diverticulitis, Emphysema, Fractures, Gastritis, Gall Bladder Disease, HIV, Hyperthyroidism, Hypothyroidism, Kidney Stones, Migraine, Mitral Valve Prolapse, Multiple Sclerosis, Osteoporosis, Pancreatitis, Paranoia, Parkinson's Disease, Post Traumatic Stress Disorder, Pulmonary Embolism, Chronic Kidney Disease, Rheumatoid Arthritis, Schizophrenia, Seizures, Sickle Cell Disease, Sexually Tr ansmitted Disease, Sleep Apnea, TIA - Surgical History Surgical History: CABG (5x), Coronary Stent Denies: Appendectomy, Carotid Endarterectomy, Cholecystectomy, Pacemaker, Tonsillectomy Other surgeries: Coronary bypass - Family History Family History: States: Diabetes, Hypertension - Home Medications Home Medications: Ambulatory Orders Medication Instructions Recorded Furosemide [Lasix] 80 mg PO BID 10/03/17 Rivaroxaban [Xarelto] 15 mg PO QPM 10/03/17 Zolpidem [Ambien] 10 mg PO HS 10/03/17 amLODIPine [Norvasc] 10 mg PO DAILY 10/03/17 Losartan [Cozaar] 25 mg PO DAILY tab 10/07/17 Insulin Human Isophane (NPH) 30 unit SC BID 07/04/18 [Novolin N] Spironolactone [Aldactone] 50 mg PO DAILY 07/04/18 Tamsulosin [Flomax] 0.4 mg PO HS 07/04/18 Insulin Human NPH [Humulin N] 30 units SC BID vial 07/07/18 Losartan [Cozaar] 25 mg PO DAILY tab 07/07/18 Rivaroxaban [Xarelto] 15 mg PO QD5 tab 07/07/18 Spironolactone [Aldactone] 50 mg PO DAILY tab 07/07/18 amLODIPine [Norvasc] 10 mg PO DAILY tab 07/07/18 - Allergies Allergies/Adverse Reactions: Allergies Allergy/AdvReac Type Severity Reaction Status Date / Time No Known Allergies Allergy Verified 03/26/16 18:10 Review of Systems ROS Statement: Except As Marked, All Systems Reviewed And Found Negative Cardiovascular: Negative for: Chest Pain Respiratory: Positive for: Shortness of Breath, SOB with Exertion. Negative for: Other (orthopnea) Physical Exam - Reviewed Nursing Documentation Reviewed: Yes Vital Signs Reviewed: Yes - Physical Exam Appears: Positive for: No Acute Distress Head Exam: Positive for: ATRAUMATIC, NORMOCEPHALIC Skin: Positive for: Normal Color, Warm, Dry Eye Exam: Positive for: Normal appearance Neck: Positive for: Normal, Painless ROM Cardiovascular/Chest: Positive for: Irregularly Irregular Respiratory: Positive for: Decreased Breath Sounds (in the right base) Gastrointestinal/Abdominal: Positive for: Normal Exam, Soft. Negative for: Tenderness Extremity: Positive for: Other (3+ pitting edema bilaterally) Neurologic/Psych: Positive for: Alert. Negative for: Motor/Sensory Deficits - Laboratory Results Result Diagrams: 07/04/18 10:10 07/07/18 04:20 - ECG Interpretation Of ECG: A fib @ 57. O2 Sat by Pulse Oximetry: 95 (RA) Pulse Ox Interpretation: Normal Medical Decision Making Medical Decision Making: Initial Impression: CHF exacerbation Initial Plan: --ECG --ProBNP stat --CMP --ED urine dipstick --PTT --Prothrombin time --Chest X-ray --Urinalysis Accession No. : [id number] Patient Name / ID : MICHAELA RODRIGUEZ / [id number] Exam Date : 07/04/2018 09:39:37 ( Approved ) Study Comment : Sex / Age : M / 78Y Creator : Chen Jacobs MD Dictator : Chen Jacobs MD Rn Patient Care : Environmental Management Specialist : Chen Jacobs MD Approver2 : Report Date : 07/04/2018 10:17:03 My Comment : Date of service: 07/04/2018 HISTORY: SOB COMPARISON: 10/03/2017 FINDINGS: LUNGS: The lungs are well inflated and clear. PLEURA: No pleural effusions or pneumothorax. CARDIOVASCULAR: There is moderate cardiomegaly. Status post CABG. No aortic atherosclerotic ca lcification present. OSSEOUS STRUCTURES: Within normal limits for the patient's age. VISUALIZED UPPER ABDOMEN: Normal. OTHER FINDINGS: None. IMPRESSION: No active pulmonary disease. ----- Scribe Attestation: Documented by Thanh Reyes acting as a scribe for Christy Cavazos MD. Provider Scribe Attestation: All medical record entries made by the Scribe were at my direction and personally dictated by me. I have reviewed the chart and agree that the record accurately reflects my personal performance of the history, physical exam, medical decision making, and the department course for this patient. I have also personally directed, reviewed, and agree with the discharge instructions and disposition. Disposition - Clinical Impression Clinical Impression: CHF exacerbation - Patient ED Disposition Is Patient to be Admitted: Yes - Disposition Disposition: Routine/Home Disposition Time: 11:08 Condition: STABLE - Pt Status Changed To: Hospital Disposition Of: Inpatient - Admit Certification Admit to Inpatient:: After my assessment, the patient will require hospitalization for at least two midnights. This is because of the severity of symptoms shown, intensity of services needed, and/or the medical risk in this patient being treated as an outpatient. - POA Present On Arrival: None
--- NOTE | 2018-07-04 10:20 | RAD ---
Date of service: 07/04/2018 HISTORY: SOB COMPARISON: 10/03/2017 FINDINGS: LUNGS: The lungs are well inflated and clear. PLEURA: No pleural effusions or pneumothorax. CARDIOVASCULAR: There is moderate cardiomegaly. Status post CABG. No aortic atherosclerotic calcification present. OSSEOUS STRUCTURES: Within normal limits for the patient's age. VISUALIZED UPPER ABDOMEN: Normal. OTHER FINDINGS: None. IMPRESSION: No active pulmonary disease.
[2018-07-04 10:30] LABS: INR 1.2; PROTHROMBIN TIME 13.9 Seconds (9.8-13.1)
[2018-07-04 10:33] LABS: PARTIAL THROMBOPLASTIN TIME 36.1 Seconds (25.6-37.1)
[2018-07-04 10:36] LABS: BASO # 0.1 K/uL (0.0-0.2); BASO % 1.5 % (0.0-2.0); EOS # 0.2 K/uL (0.0-0.7); EOS % 1.9 % (0.0-4.0); HEMOGLOBIN 12.8 g/dL (12.0-18.0); LYMPH % 12.5 % (20.0-40.0); MEAN CELL VOLUME 90.6 fl (80.0-94.0); MEAN CORPUSCULAR HEMOGLOBIN 29.3 pg (27.0-31.0); MEAN CORPUSCULAR HGB CONC 32.3 g/dL (33.0-37.0); MEAN PLATELET VOLUME 8.8 fl (7.2-11.7); MONO # 0.8 K/uL (0.0-0.8); MONO % 9.6 % (0.0-10.0); NEUT # 5.9 K/uL (1.8-7.0); NEUT % 74.5 % (50.0-75.0); NRBC % 0.1 % (0.0-0.0); RBC 4.37 Mil/uL (4.40-5.90); RED CELL DISTRIBUTION WIDTH 16.2 % (11.5-14.5); WHITE BLOOD COUNT 7.9 K/uL (4.8-10.8)
[2018-07-04 10:46] LABS: ALBUMIN 3.7 g/dL (3.5-5.0); CALCIUM 9.4 mg/dL (8.4-10.2)
[2018-07-04 11:49] LABS: URINE BILIRUBIN NEGATIVE (NEGATIVE); URINE BLOOD NEGATIVE (NEGATIVE); URINE CLARITY CLEAR (Clear); URINE COLOR STRAW (YELLOW); URINE GLUCOSE (UA) NEG (NEGATIVE); URINE LEUKOCYTE ESTERASE NEG Leu/uL (Negative); URINE PROTEIN NEGATIVE (NEGATIVE); URINE UROBILINOGEN 0.2-1.0 mg/dL (0.2-1.0)
--- NOTE | 2018-07-04 11:54 | CP.PCM.HP ---
History of Present Illness - History of Present Illness History of Present Illness: this 65-[id number]-[id number]-[place] manwith a long history of hypertension diabetes mellitus and dyslipidemia who has had coronary artery disease requiring coronary bypass graft surgery in 2006 followed by stenting off left circumflex artery and LAD in March 2009 and who has had chronic atrial fibrillation with severe congestive cardiac failure requiring aggressive dialytic therapy, has come into the hospital after having developed significant pedal edema and worsening dyspnea on exertion that did not respond to taking 120 mg of furosemide daily at home for last 4 days. The patient has had diffuse vascular disease resulting in a cerebrovascular accident approximately 15 years back and has had severe peripheral arterial disease requiring amputation off a second toe on the left foot. There is severe mitral regurgitation and left ventricular systolic dysfunction resulting in congestive cardiac failure which is left ventricular systolic and chronic. The patient also has had TURP for an enlarged prostate. There is a history of chronic cigarette use in the past with significant COPD. Physical examination shows an elderly -[place] male who is alert awake coherent and afebrile. He breathes at 16-18 breaths per minute while propped up in the bed. He has a heart rate of 62 bpm and regular. His blood pressure was 128/74 mmHg. His jugular venous pressure was mildly elevated and there was p itting edema over his legs up to his ankle. His pedal pulses were not palpable. His extremities were slightly cool to touch.there was no central or peripheral cyanosis. The skin was dry.a scar of sternotomy was evident. The apex was in the sixth space slightly heaving in character. The first and second heart sounds were distant but normal long apical systolic murmur of mitral regurgitation was evident. The air entry was reduced at both bases. Few rales were audible. There were no carotid bruits. His electrocardiogram showed atrial rate of 180 bpm with 3-1 AV conduction. there was evidence of an old inferior wall myocardial infarction. the chest x-ray reveals cardiomegaly. Costophrenic angles were clear there was pulmonary congestion. Lab tests show a normal hemoglobin with mildly elevated BUN/creatinine and a normal potassium level. Impression: congestive cardiac failure which is left ventricular systolic and acute on chronic. Chronic atrial flutter fibrillation. PAD with status post amputation of second toe on left side. Old cerebrovascular accident. COPD. Hypertension, diabetes and dyslipidemia. Coronary artery disease with status post coronary bypass graft surgery and status post coronary stenting. Mitral regurgitation with significant left ventricular systolic dysfunction. The patient is being given intravenous furosemide along with oral spinal lactone. He will continue to receive losartan and metoprolol as beta-blockade. He will be weighed every day to monitor his progress and his electrolytes and BUN/creatinine would be monitored as well. Present on Admission - Present on Admission Any Indicators Present on Admission: No Past Patient History - Tetanus Immunizations Tetanus Immunization: Unknown - Past Medical History & Family History Past Medical History?: Yes - Past Social History Smoking Status: Former Smoker - CARDIAC Hx Atrial Fibrillation: Yes Hx Cardia Arrhythmia: Yes Hx Congestive Heart Failure: Yes Hx Hypercholesterolemia: Yes Hx Hypertension: Yes Hx Mitral Valve Prolapse: No Hx Pacemaker: No Hx Peripheral Edema: Yes - PULMONARY Hx Asthma: No Hx Bronchitis: No Hx Chronic Obstructive Pulmonary Disease (COPD): Yes Hx Emphysema: No Hx Pneumonia: Yes Hx Pulmonary Embolism: No Hx Sleep Apnea: No - NEUROLOGICAL Hx Alzheimer's Disease: No Hx Dementia: No Hx Migraine: No Hx Multiple Sclerosis: No Hx Parkinson's Disease: No Hx Seizures: No Hx Transient Ischemic Attacks (TIA): No - HEENT Hx HEENT Problems: Yes - RENAL Hx Chronic Kidney Disease: No Hx Kidney Stones: No - ENDOCRINE/METABOLIC Hx Hyperthyroidism: No Hx Hypothyroidism: No - HEMATOLOGICAL/ONCOLOGICAL Hx Anemia: No Hx Human Immunodeficiency Virus (HIV): No Hx Sickle Cell Disease: No - INTEGUMENTARY Hx Dermatological Problems: No - MUSCULOSKELETAL/RHEUMATOLOGICAL Hx Arthritis: Yes Hx Fractures: No Hx Osteoporosis: No Hx Rheumatoid Arthritis: No - GASTROINTESTINAL Hx Crohn's Disease: No Hx Diverticulitis: No Hx Gall Bladder Disease: No Hx Gastritis: No Hx Pancreatitis: No - GENITOURINARY/GYNECOLOGICAL Hx Sexually Transmitted Disorders: No - PSYCHIATRIC Hx Anxiety: No Hx Bipolar Disorder: No Hx Depression: No Hx Paranoia: No Hx Post Traumatic Stress Disorder: No Hx Schizophrenia: No - SURGICAL HISTORY Hx Appendectomy: No Hx Carotid Endarterectomy: No Hx Cholecystectomy: No Hx Coronary Artery Bypass Graft: Yes (5x) Hx Coronary Stent: Yes Hx Tonsillectomy: No - ANESTHESIA Hx Anesthesia: Yes Hx Anesthesia Reactions: No Hx Malignant Hyperthermia: No Meds Allergies/Adverse Reactions: Allergies Allergy/AdvReac Type Severity Reaction Status Date / Time No Known Allergies Allergy Verified 03/26/16 18:10 Results - Vital Signs Recent Vital Signs: Last Vital Signs Temp 97.5 F L 07/04/18 09:30 Pulse 80 07/04/18 09:30 Resp 20 07/04/18 09:30 BP 136/81 07/04/18 11:25 Pulse Ox 95 07/04/18 11:32 - Labs Result Diagrams: 07/04/18 10:10 07/04/18 10:10 Labs: Laboratory Results - last 24 hr 07/04/18 07/04/18 07/04/18 10:10 10:10 10:10 WBC 7.9 RBC 4.37 L Hgb 12.8 Hct 39.6 MCV 90.6 MCH 29.3 MCHC 32.3 L RDW 16.2 H Plt Count 445 H MPV 8.8 Neut % (Auto) 74.5 Lymph % (Auto) 12.5 L [place] % (Auto) 9.6 Eos % (Auto) 1.9 Baso % (Auto) 1.5 Neut # (Auto) 5.9 Lymph # (Auto) 1.0 [place] # (Auto) 0.8 Eos # (Auto) 0.2 Baso # (Auto) 0.1 PT 13.9 H INR 1.2 APTT 36.1 Sodium 142 Potassium 4.1 Chloride 106 Carbon Dioxide 24 Anion Gap 16 BUN 26 H Creatinine 1.5 Est GFR ( Amer) 54 Est GFR (Non-Af Amer) 45 Random Glucose 88 Calcium 9.4 Total Bilirubin 1.9 H AST 42 ALT 39 Alkaline Phosphatase 102 NT-Pro-B Natriuret Pep 2120 H Total Protein 7.5 Albumin 3.7 Globulin 3.8 Albumin/Globulin Ratio 1.0
[2018-07-04] MEDS ORDERED: Insulin NPH Human 100 Units/ml Inj SC SCH (17:00)
--- NOTE | 2018-07-04 19:05 | CARD ---
APPROVED REPORT Date of service: 07/04/2018 EKG Measurement Heart [id number] <Conclusion> Atrial fibrillation with slow ventricular response Low voltage QRS Poor R wave progression Abnormal ECG
--- NOTE | 2018-07-05 09:23 | CP.PCM.PN ---
Subjective - Date & Time of Evaluation Date of Evaluation: 07/05/18 Time of Evaluation: 08:45 - Subjective Subjective: has diuresed profusely in response to IV furosemide. Has lost 5 pounds since his admission according to weight opt in this morning. Reports significant relief of dyspnea on exertion while he walked in the corridor. telemetry shows atypical atrial flutter with variable A-V conduction and a heart rate which ranges mostly between 58 and 70 bpm. patient's blood pressure this morning is 140/70 mmHg. Jugular venous pressure was not elevated there were rales at both bases and significant pedal edema still persisted. Complete metabolic profile was requested to evaluate serum potassium and BUN/creatinine. Objective - Vital Signs/Intake and Output Vital Signs (last 24 hours): Temp Pulse Resp BP Pulse Ox 97.7 F 66 20 149/67 96 07/05/18 08:22 07/05/18 08:22 07/05/18 08:22 07/05/18 08:22 07/05/18 08:22 - Medications Medications: Current Medications Amlodipine Besylate (Norvasc) 10 mg PO DAILY [facility] Last Admin: 07/04/18 14:02 Dose: 10 mg Furosemide (Lasix) 40 mg IVP BID [facility] Last Admin: 07/04/18 17:19 Dose: 40 mg Insulin Human NPH (Humulin N) 40 units SC BID [facility] Last Admin: 07/04/18 17:26 Dose: 40 units Losartan Potassium (Cozaar) 25 mg PO DAILY [facility] Last Admin: 07/04/18 14:02 Dose: 25 mg Metoprolol Tartrate (Lopressor) 25 mg PO Q12 [facility] Last Admin: 07/04/18 21:18 Dose: 25 mg Rivaroxaban (Xarelto) 15 mg PO QD5 [facility]; Protocol Last Admin: 07/04/18 17:19 Dose: 15 mg Spironolactone (Aldactone) 50 mg PO DAILY [facility] Last Admin: 07/04/18 14:02 Dose: 50 mg Zolpidem Tartrate (Ambien) 10 mg PO HS [facility] - Labs Labs: 07/04/18 10:10 07/04/18 10:10 PT 13.9 Seconds (9.8-13.1) H 07/04/18 10:10 INR 1.2 07/04/18 10:10 APTT 36.1 Seconds (25.6-37.1) 07/04/18 10:10
[2018-07-05] MEDS: Insulin NPH Human 100 Units/ml Inj SC SCH ×2 (09:33→16:39)
[2018-07-05 12:11] LABS: ALB/GLOB RATIO 1.1 (1.0-2.1); ALBUMIN 3.9 g/dL (3.5-5.0); CALCIUM 9.1 mg/dL (8.4-10.2)
[2018-07-05] MEDS ORDERED: Influenza Vaccine (5 YR UP)/PF 60 MCG/0.5 ML SYR IM ONE (14:47)
--- NOTE | 2018-07-05 21:21 | CARD ---
APPROVED REPORT Date of service: 07/05/2018 EKG Measurement Heart [id number] <Conclusion> Atrial fibrillation Inferior infarct, age undetermined Abnormal ECG
[2018-07-06 06:17] LABS: ALBUMIN 3.9 g/dL (3.5-5.0); CALCIUM 9.1 mg/dL (8.4-10.2)
--- NOTE | 2018-07-06 07:55 | CARD ---
APPROVED REPORT Date of service: 07/05/2018 EXAM: Two-dimensional and M-mode echocardiogram with Doppler and color Doppler. Other Information Quality : GoodRhythm : Atrial Fibrillation INDICATION Congestive Heart Failure 2D DIMENSIONS IVSd0.90 (0.7-1.1cm)LVDd4.94 (3.9-5.9cm) LVOT Diameter1.99 (1.8-2.4cm)PWd0.95 (0.7-1.1cm) IVSs0.87 (0.8-1.2cm)LVDs4.90 (2.5-4.0cm) FS (%) 0.9 %PWs1.14 (0.8-1.2cm) M-Mode DIMENSIONS Left Atrium (MM)5.09 (2.5-4.0cm)IVSd1.00 (0.7-1.1cm) Aortic Root3.56 (2.2-3.7cm)LVDd6.06 (4.0-5.6cm) Aortic Cusp Exc.1.94 (1.5-2.0cm)PWd0.78 (0.7-1.1cm) IVSs1.47 cmFS (%) 19 % LVDs4.94 (2.0-3.8cm)PWs0.88 cm Mitral Valve E/A ratio0.0 TDI E/Lateral E'0.0E/Medial E'0.0 Tricuspid Valve TR Peak [id number] Peak Gr.55mmHg [id number] LEFT VENTRICLE The Left Ventricle is mildly dilated. Septum was mildly flattened. There is normal left ventricular wall thickness. Left ventricle systolic function is severely impaired. LVEF is 10-15%. Severe generalised hypokinesia. Diastolic function could not beassesed due to a flutter. RIGHT VENTRICLE The right ventricle is moderately dilated. There is normal right ventricular wall thickness. The right ventricular systolic function is normal. ATRIA The left atrium is moderately dilated. The right atrium is moderately dilated. AORTIC VALVE The aortic valve is normal in structure. No aortic regurgitation is present. There is no aortic valvular stenosis. MITRAL VALVE The mitral valve is normal in structure. There is no mitral valve stenosis. Mitral regurgitation is moderate. TRICUSPID VALVE The tricuspid valve is normal in structure. There is moderate tricuspid regurgitation. Right ventricular systolic pressure is estimated at 74 mmHg. There is severe pulmonary hypertension. PULMONIC VALVE The pulmonary valve is normal in structure. There is no pulmonic valvular regurgitation. GREAT VESSELS The aortic root is normal in size. The IVC was not visualized. PERICARDIAL EFFUSION The pericardium appears normal. <Conclusion> The Left Ventricle is mildly dilated. Septum was mildly flattened. Severe generalised hypokinesia. Left ventricle systolic function is severely impaired. LVEF is 10-15%. The right atrium is moderately dilated. Mitral regurgitation is moderate. Right ventricular systolic pressure is estimated at 74 mmHg. There is severe pulmonary hypertension. The left atrium is moderately dilated.
[2018-07-06] MEDS: Insulin NPH Human 100 Units/ml Inj SC SCH ×2 (09:24→16:22)
--- NOTE | 2018-07-06 09:29 | CP.PCM.PN ---
Subjective - Date & Time of Evaluation Date of Evaluation: 07/06/18 Time of Evaluation: 08:50 - Subjective Subjective: The patient has diuresed well with intravenous furosemide. In spite of which today's weight indicates a weight gain of 4 pounds.(!) In the meantime the patient reports reduction in pedal edema and improvement in his exercise tolerance. He has been able to walk around the nurses station with minimal dyspnea. Telemetry continues to demonstrate atrial flutter with variable AV conduction and a heart rate mostly around 60 bpm. His blood pressure was 138/70 mmHg. His jugular venous pressure was not elevated. There was minimal pitting edema over both ankles. Very few rales were audible at both bases. Echocardiogram done yesterday reveals severely depressed left ventricular systolic function with an ejection fraction in the range of 10-15% with moderate to severe mitral regurgitation and severe pulmonary hypertension. His labs show steady decline in bilirubin as well as alkaline phosphatase and AST and ALT indicating steady improvement in hepatic congestion with diuresis. Along the same lines the BUN has shown a mild increase. His electrolytes are normal. Given his severely depressed left ventricular systolic function the patient needs to be evaluated for possible AICD implant. Prior to this he would require ischemia workup. His last coronary stenting was more than 9 years back. I have arranged a nuclear stress test for tomorrow. I have spoken at length with his daughter and the patient himself regarding the advisability of an AICD implant. Both of them agree with this line of management. Given borderline bradycardia with a heart rate between 50 beats a minute and 65 beats a minute I have discontinued metoprolol. Objective - Vital Signs/Intake and Output Vital Signs (last 24 hours): Temp Pulse Resp BP Pulse Ox 97.6 F 61 20 142/75 100 07/06/18 08:26 07/06/18 08:26 07/06/18 08:26 07/06/18 08:26 07/06/18 08:26 - Medications Medications: Current Medications Amlodipine Besylate (Norvasc) 10 mg PO DAILY [facility] Last Admin: 07/05/18 09:20 Dose: 10 mg Furosemide (Lasix) 40 mg IVP BID [facility] Last Admin: 07/05/18 16:38 Dose: 40 mg Insulin Human NPH (Humulin N) 30 units SC BID [facility] Last Admin: 07/05/18 16:39 Dose: 30 unit Losartan Potassium (Cozaar) 25 mg PO DAILY [facility] Last Admin: 07/05/18 09:14 Dose: 25 mg Rivaroxaban (Xarelto) 15 mg PO QD5 [facility]; Protocol Last Admin: 07/05/18 16:39 Dose: 15 mg Spironolactone (Aldactone) 50 mg PO DAILY [facility] Last Admin: 07/05/18 09:13 Dose: 50 mg Zolpidem Tartrate (Ambien) 5 mg PO HS [facility] Last Admin: 07/05/18 23:35 Dose: 5 mg - Labs Labs: 07/04/18 10:10 07/06/18 04:55 PT 13.9 Seconds (9.8-13.1) H 07/04/18 10:10 INR 1.2 07/04/18 10:10 APTT 36.1 Seconds (25.6-37.1) 07/04/18 10:10
[2018-07-07 06:37] LABS: ALB/GLOB RATIO 1.1 (1.0-2.1); ALBUMIN 3.7 g/dL (3.5-5.0); CALCIUM 9.1 mg/dL (8.4-10.2)
[2018-07-07 08:40] VITALS: RESP 20; TEMP 98
--- NOTE | 2018-07-07 09:28 | CP.PCM.PN ---
Subjective - Date & Time of Evaluation Date of Evaluation: 07/07/18 Time of Evaluation: 09:00 - Subjective Subjective: having diuresed profusely with IV furosemide, the patient reports significant improvement in his effort tolerance. He was able to walk around the nurse's station couple of times without significant dyspnea. He reports significant reduction in his pedal edema. In absence of beta blockade his heart rate is mostly between 70 and 80 bpm. His blood pressure was 136/74 mmHg. His jugular venous pressure was not elevated there was mild pitting edema over both lower extremities. There were no rales. His labs show continued decline in his bilirubin and serum alkaline phosphatase as well as AST and ALD indicating continued reduction in hepatic congestion. His creatinine shows a mild increase with a mild decline in his GFR overnight. His electrolytes were normal. The patient has undergone a pharmacological stress test with Lexiscan and the results would be available to me tomorrow. This is in anticipation of an AICD implant which he will require because of a left ventricular ejection fraction of approximately 10-15%. I will discharge patient and arrange to see him in the office for a follow-up visit. I have instructed his daughter to weigh him regularly. Objective - Vital Signs/Intake and Output Vital Signs (last 24 hours): Temp Pulse Resp BP Pulse Ox 98.0 F 65 20 132/75 100 07/07/18 08:39 07/07/18 08:39 07/07/18 08:39 07/07/18 08:39 07/07/18 08:39 - Medications Medications: Current Medications Amlodipine Besylate (Norvasc) 10 mg PO DAILY [facility] Last Admin: 07/06/18 09:24 Dose: 10 mg Furosemide (Lasix) 40 mg IVP BID [facility] Last Admin: 07/06/18 16:21 Dose: 40 mg Insulin Human NPH (Humulin N) 30 units SC BID [facility] Last Admin: 07/06/18 16:22 Dose: 30 unit Losartan Potassium (Cozaar) 25 mg PO DAILY [facility] Last Admin: 07/06/18 09:23 Dose: 25 mg Regadenoson (Lexiscan) 0.4 mg IVP ONCE ONE Stop: 07/07/18 09:19 Rivaroxaban (Xarelto) 15 mg PO QD5 [facility]; Protocol Last Admin: 07/06/18 16:25 Dose: 15 mg Spironolactone (Aldactone) 50 mg PO DAILY [facility] Last Admin: 07/06/18 09:16 Dose: 50 mg Zolpidem Tartrate (Ambien) 5 mg PO HS [facility] Last Admin: 07/06/18 23:30 Dose: 5 mg - Labs Labs: 07/04/18 10:10 07/07/18 04:20 PT 13.9 Seconds (9.8-13.1) H 07/04/18 10:10 INR 1.2 07/04/18 10:10 APTT 36.1 Seconds (25.6-37.1) 07/04/18 10:10
[2018-07-07] MEDS: Insulin NPH Human 100 Units/ml Inj SC SCH (09:30)
[2018-07-07 09:41] VITALS: BP 126/87; PULSE 67
[2018-07-07 12:12] VITALS: O2SAT 95
== END 2018-07-07 12:33 | disposition home or self-care (01) | DRG 292 ==
LOC: H.ER 09:21 → H.ERHOLD 11:08 → H.TEL 13:00
PROVIDERS: ADMIT Internal Medicine Cardiovascular Disease; ATTEND Internal Medicine Cardiovascular Disease
DX: I11.0 Hypertensive heart disease with heart failure (principal); I48.4 Atypical atrial flutter; I48.2 Chronic atrial fibrillation; I50.23 Acute on chronic systolic (congestive) heart failure; E11.51 Type 2 diabetes mellitus with diabetic peripheral angiopathy without gangrene; J44.9 Chronic obstructive pulmonary disease, unspecified; Z86.73 Personal history of transient ischemic attack (TIA), and cerebral infarction without residual deficits; E78.5 Hyperlipidemia, unspecified; I25.10 Atherosclerotic heart disease of native coronary artery without angina pectoris; Z95.1 Presence of aortocoronary bypass graft; Z95.5 Presence of coronary angioplasty implant and graft; I34.0 Nonrheumatic mitral (valve) insufficiency; Z79.01 Long term (current) use of anticoagulants; Z79.4 Long term (current) use of insulin; I27.20 Pulmonary hypertension, unspecified; Z23 Encounter for immunization; Z91.14 Patient's other noncompliance with medication regimen; E78.00 Pure hypercholesterolemia, unspecified; Z87.891 Personal history of nicotine dependence; Z89.422 Acquired absence of other left toe(s)

== ENCOUNTER 2018-10-21 11:29 | Inpatient (IN) | payer MEDICARE ==
[2018-10-21 11:35] VITALS: BMI 29.5
[2018-10-21 12:28] LABS: BASO # 0.1 K/uL (0.0-0.2); BASO % 1.3 % (0.0-2.0); EOS # 0.1 K/uL (0.0-0.7); EOS % 0.7 % (0.0-4.0); LYMPH # 0.8 K/uL (1.0-4.3); LYMPH % 8.8 % (20.0-40.0); MEAN CELL VOLUME 87.9 fl (80.0-94.0); MEAN CORPUSCULAR HEMOGLOBIN 28.1 pg (27.0-31.0); MEAN CORPUSCULAR HGB CONC 31.9 g/dL (33.0-37.0); MEAN PLATELET VOLUME 8.9 fl (7.2-11.7); MONO # 0.8 K/uL (0.0-0.8); MONO % 7.8 % (0.0-10.0); NEUT # 7.8 K/uL (1.8-7.0); NEUT % 81.4 % (50.0-75.0); PLATELET COUNT 401 K/uL (130-400); RBC 3.84 Mil/uL (4.40-5.90); RED CELL DISTRIBUTION WIDTH 17.6 % (11.5-14.5); WHITE BLOOD COUNT 9.6 K/uL (4.8-10.8)
[2018-10-21 12:35] LABS: HEMOGLOBIN 10.8 g/dL (12.0-18.0)
[2018-10-21 12:39] LABS: INR 1.2; PROTHROMBIN TIME 14.1 Seconds (9.8-13.1)
[2018-10-21 12:41] LABS: PARTIAL THROMBOPLASTIN TIME 31.7 Seconds (25.6-37.1)
[2018-10-21 12:42] LABS: ALB/GLOB RATIO 1.1 (1.0-2.1); ALBUMIN 3.8 g/dL (3.5-5.0); CALCIUM 9.4 mg/dL (8.4-10.2)
--- NOTE | 2018-10-21 12:47 | ED PDOC ---
HPI: SOB/CHF/COPD Time Seen by Provider: 10/21/18 11:42 Chief Complaint (Nursing): Syncope Chief Complaint (Provider): Shortness of Breath History Per: Patient History/Exam Limitations: no limitations Onset/Duration Of Symptoms: Other (x3 weeks) Current Symptoms Are (Timing): Still Present Additional Complaint(s): Patient is an 78 y/o male with an extensive PMHx who presents to the ED for evaluation with shortness of breath for the past three weeks. Patient states he feels like there is water in his lungs. Patient denies chest pain, cough, and leg pain or swelling. Patient states the medication he is taking is not helping. PCP: Dr. Eric Suarez Past Medical History Reviewed: Historical Data, Nursing Documentation, Vital Signs Vital Signs: Last Vital Signs Temp 97 F L 10/21/18 11:34 Pulse 64 10/21/18 11:34 Resp BP 115/60 10/21/18 11:34 Pulse Ox 98 10/21/18 11:34 - Medical History PMH: Arthritis, Atrial Fibrillation, CAD, Cardia Arrhythmia, CHF, COPD, CVA, Diabetes, HTN, Hypercholesterolemia, Peripheral Edema, Pneumonia Denies: Alzheimer's Disease, Anemia, Anxiety, Asthma, Bipolar Disorder, Bronchitis, Crohn's Disease, Dementia, Depression, Diverticulitis, Emphysema, Fractures, Gastritis, Gall Bladder Disease, HIV, Hyperthyroidism, Hypothyroidism, Kidney Stones, Migraine, Mitral Valve Prolapse, Multiple Sclerosis, Osteoporosis, Pancreatitis, Paranoia, Parkinson's Disease, Post Tra umatic Stress Disorder, Pulmonary Embolism, Chronic Kidney Disease, Rheumatoid Arthritis, Schizophrenia, Seizures, Sickle Cell Disease, Sexually Transmitted Disease, Sleep Apnea, TIA - Surgical History Surgical History: CABG (5x), Coronary Stent Denies: Appendectomy, Carotid Endarterectomy, Cholecystectomy, Pacemaker, Tonsillectomy - Family History Family History: States: Diabetes, Hypertension - Immunization History Hx Tetanus Toxoid Vaccination: Yes Hx Influenza Vaccination: Yes Hx Pneumococcal Vaccination: Yes - Home Medications Home Medications: Ambulatory Orders Medication Instructions Recorded Furosemide [Lasix] 80 mg PO BID 10/03/17 Rivaroxaban [Xarelto] 15 mg PO QPM 10/03/17 Zolpidem [Ambien] 10 mg PO DAILY 10/03/17 Losartan [Cozaar] 25 mg PO DAILY tab 10/07/17 Insulin Human Isophane (NPH) 30 unit SC BID 07/04/18 [Novolin N] Spironolactone [Aldactone] 50 mg PO DAILY 07/04/18 Tamsulosin [Flomax] 0.4 mg PO DAILY 07/04/18 Insulin Human NPH [Humulin N] 30 units SC BID vial 07/07/18 Losartan [Cozaar] 25 mg PO DAILY tab 07/07/18 Rivaroxaban [Xarelto] 15 mg PO QD5 tab 07/07/18 Spironolactone [Aldactone] 50 mg PO DAILY tab 07/07/18 amLODIPine [Norvasc] 10 mg PO DAILY tab 07/07/18 - Allergies Allergies/Adverse Reactions: Allergies Allergy/AdvReac Type Severity Reaction Status Date / Time No Known Allergies Allergy Verified 10/21/18 11:42 Review of Systems ROS Statement: Except As Marked, All Systems Reviewed And Found Negative Cardiovascular: Negative for: Chest Pain Respiratory: Positive for: Shortness of Breath. Negative for: Cough Musculoskeletal: Negative for: Leg Pain (or swelling) Physical Exam - Reviewed Nursing Documentation Reviewed: Yes Vital Signs Reviewed: Yes - Physical Exam Appears: Positive for: No Acute Distress (speaking full sentences) Head Exam: Positive for: ATRAUMATIC, NORMAL INSPECTION, NORMOCEPHALIC Skin: Positive for: Normal Color, Warm, DRY Eye Exam: Positive for: EOMI, Normal appearance, PERRL ENT: Positive for: Normal ENT Inspection Neck: Positive for: Normal, Painless ROM, Supple Cardiovascular/Chest: Positive for: Irregularly Irregular (with regular rhythm). Negative for: Murmur Respiratory: Positive for: Crackles (right base) Gastrointestinal/Abdominal: Positive for: Normal Exam, Soft. Negative for: Tenderness Back: Positive for: Normal Inspection. Negative for: L CVA Tenderness, R CVA Tenderness, Vertebral Tenderness Extremity: Positive for: Normal ROM, Pedal Edema (pitting). Negative for: Deformity Neurological/Psych: Positive for: Alert, Oriented (x3) - Laboratory Results Result Diagrams: 10/23/18 04:20 10/23/18 04:20 Lab Results: PT 14.1 Seconds (9.8-13.1) H 10/21/18 12:16 INR 1.2 10/21/18 12:16 APTT 31.7 Seconds (25.6-37.1) 10/21/18 12:16 Total Bilirubin 0.6 mg/dl (0.2-1.3) 10/21/18 12:16 AST 72 U/L (17-59) H D 10/21/18 12:16 ALT 37 U/L (21-72) 10/21/18 12:16 Alkaline Phosphatase 102 U/L (38-126) 10/21/18 12:16 Total Protein 7.3 G/DL (6.3-8.2) 10/21/18 12:16 Albumin 3.8 g/dL (3.5-5.0) 10/21/18 12:16 Globulin 3.5 gm/dL (2.2-3.9) 10/21/18 12:16 Albumin/Globulin Ratio 1.1 (1.0-2.1) 10/21/18 12:16 - ECG ECG Rhythm: Negative for: ST/T Changes Interpretation Of Abn EKG: Atrial Fibrillation Rate: 69 O2 Sat by Pulse Oximetry: 98 (RA) Pulse Ox Interpretation: Normal Medical Decision Making Medical Decision Making: Time: 1202 Impression: Dyspnea Plan: EKG BNP CMP [place] Phosphorus Troponin I Urine Dipstick CBC PTT Prothrombin Time CXR Glucose, POC UA Accession No. : [id number] Patient Name / ID : MICHAELA RODRIGUEZ / [id number] Exam Date : 10/21/2018 12:03:47 ( Approved ) Study Comment : Sex / Age : M / 78Y Creator : South Wright MD Dictator : South Wright MD Percussion Instrument Repairer : Command Post Superintendent : South Wright MD Approver2 : Report Date : 10/21/2018 17:14:31 My Comment : Date of service: 10/21/2018 HISTORY: SOB COMPARISON: None available. TECHNIQUE: 1 view obtained. FINDINGS: LUNGS: No active pulmonary disease. PLEURA: No significant pleural effusion identified, no pneumothorax apparent. CARDIOVASCULAR: No aortic atherosclerotic calcification present. Cardiomegaly stable. Post CABG changes reiterated. No pulmonary vascular congestion. OSSEOUS STRUCTURES: No significant abnormalities. VISUALIZED UPPER ABDOMEN: Normal. OTHER FINDINGS: None. IMPRESSION: No acute cardiopulmonary disease appreciated. Stable cardiomegaly. 13:[address] Bone in ED., recommends Rashawn, admit. 14:[address] Sigala, admit to Hospitalist, will consult. --- Scribe Attestation: Documented by Vicente Cazares, acting as a scribe Alba Cavazos MD. Provider Scribe Attestation: All medical record entries made by the Scribe were at my direction and p ersonally dictated by me. I have reviewed the chart and agree that the record accurately reflects my personal performance of the history, physical exam, medical decision making, and the department course for this patient. I have also personally directed, reviewed, and agree with the discharge instructions and disposition. Disposition - Clinical Impression Clinical Impression: CHF exacerbation - Patient ED Disposition Is Patient to be Admitted: Yes - Disposition Disposition Time: 14:10 Condition: STABLE - Pt Status Changed To: Hospital Disposition Of: Inpatient - Admit Certification Admit to Inpatient:: After my assessment, the patient will require hospitalization for at least two midnights. This is because of the severity of symptoms shown, intensity of services needed, and/or the medical risk in this patient being treated as an outpatient. - POA Present On Arrival: None
[2018-10-21 12:53] LABS: TROPONIN I 0.07 ng/mL (0.00-0.120)
[2018-10-21 14:01] LABS: ANISOCYTOSIS SLIGHT; BASOPHIL 1 % (0-2); GIANT PLATELETS PRESENT; HYPOCHROMIC SLIGHT; LARGE PLATELETS PRESENT; LYMPHOCYTE 10 % (20-50); METAMYELOCYTE 1 % (0-0); MONOCYTE 5 % (0-10); MYELOCYTE 1 % (0-0); NEUTROPHIL 82 % (42-75); OVALOCYTES SLIGHT; PLATELET ESTIMATE NORMAL (NORMAL); TOTAL CELLS COUNTED 100
[2018-10-21 14:44] LABS: ABG ALLEN TEST YES; ARTERIAL BLOOD GAS HCO3 23.4 mmol/L (21-28); ARTERIAL BLOOD GAS HEMOGLOBIN 11.4 g/dL (11.7-17.4); ARTERIAL BLOOD GAS O2 CAPACITY 15.4 mL/dL (16-24); ARTERIAL BLOOD GAS O2 CONTENT 15.3 ML/dL (15-23); ARTERIAL BLOOD GAS O2 SAT 99.5 % (95-98); ARTERIAL BLOOD GAS PCO2 34 mm/Hg (35-45); ARTERIAL BLOOD GAS PH 7.42 (7.35-7.45); ARTERIAL BLOOD GAS PO2 80 mm/Hg (80-100); ARTERIAL BLOOD GAS TCO2 23.1 mmol/L (22-28)
--- NOTE | 2018-10-21 15:03 | CP.PCM.HP ---
<Curt Ly - Last Filed: 10/21/18 17:09> History of Present Illness - History of Present Illness History of Present Illness: 78 yo M with pmhx of CHF, Cardiac bypass (x5 per patient), afib, peripheral artery disease, HTN, DM, dyslipidemia, enlarged prostate, COPD presents to the ED with 3 day history of SOB. Pt states that his lasix was recently decreased. Since the decrease, he has noticed progressive swelling of lower extremities and not urinating as much as before. Reports no complaints/difficulty with urination Denies chest pain, fever, chills. Medrec: pt on lasix po 80 mg BID PMD/Cardiology: Dr. Sanjuana Suarez Pulm: Dr. Bone Urology: Dr. Thomas (next appt on 10/23/2018) Surg: cardiac bypass, thyroidectomy, amputation of 2nd toe of L foot; TURP Famhx: none Soc: Denies smoking or illicit drugs. Reports social alcohol, not significant to quantify. Rx: on med rec NKDA Present on Admission - Present on Admission Any Indicators Present on Admission: Yes History of Uncontrolled Diabetes: Yes Urinary Catheter: No Review of Systems - Cardiovascular Cardiovascular: absent: Chest Pain, Chest Pain at Rest - Respiratory Respiratory: Dyspnea, Chest Congestion - Gastrointestinal Gastrointestinal: absent: Abdominal Pain - Genitourinary Genitourinary: absent: Change in Urinary Stream, Difficulty Urinating, Dysuria - Integumentary Integumentary: Swelling - Neurological Neurological: Abnormal Gait (2/2 BL LE swelling) Past Patient History - Tetanus Immunizations Tetanus Immunization: Unknown - Past Medical History & Family History Past Medical History?: Yes - Past Social History Smoking Status: Former Smoker - CARDIAC Hx Atrial Fibrillation: Yes Hx Cardia Arrhythmia: Yes Hx Congestive Heart Failure: Yes Hx Hypercholesterolemia: Yes Hx Hypertension: Yes Hx Mitral Valve Prolapse: No Hx Pacemaker: No Hx Peripheral Edema: Yes - PULMONARY Hx Asthma: No Hx Bronchitis: No Hx Chronic Obstructive Pulmonary Disease (COPD): Yes Hx Emphysema: No Hx Pneumonia: Yes Hx Pulmonary Embolism: No Hx Sleep Apnea: No - NEUROLOGICAL Hx Alzheimer's Disease: No Hx Dementia: No Hx Migraine: No Hx Multiple Sclerosis: No Hx Parkinson's Disease: No Hx Seizures: No Hx Transient Ischemic Attacks (TIA): No - HEENT Hx HEENT Problems: Yes - RENAL Hx Chronic Kidney Disease: No Hx Kidney Stones: No - ENDOCRINE/METABOLIC Hx Hyperthyroidism: No Hx Hypothyroidism: No - HEMATOLOGICAL/ONCOLOGICAL Hx Anemia: No Hx Human Immunodeficiency Virus (HIV): No Hx Sickle Cell Disease: No - INTEGUMENTARY Hx Dermatological Problems: No - MUSCULOSKELETAL/RHEUMATOLOGICAL Hx Arthritis: Yes Hx Fractures: No Hx Osteoporosis: No Hx Rheumatoid Arthritis: No - GASTROINTESTINAL Hx Crohn's Disease: No Hx Diverticulitis: No Hx Gall Bladder Disease: No Hx Gastritis: No Hx Pancreatitis: No - GENITOURINARY/GYNECOLOGICAL Hx Sexually Transmitted Disorders: No - PSYCHIATRIC Hx Anxiety: No Hx Bipolar Disorder: No Hx Depression: No Hx Paranoia: No Hx Post Traumatic Stress Disorder: No Hx Schizophrenia: No - SURGICAL HISTORY Hx Appendectomy: No Hx Carotid Endarterectomy: No Hx Cholecystectomy: No Hx Coronary Artery Bypass Graft: Yes (5x) Hx Coronary Stent: Yes Hx Tonsillectomy: No - ANESTHESIA Hx Anesthesia: Yes Hx Anesthesia Reactions: No Hx Malignant Hyperthermia: No Meds Allergies/Adverse Reactions: Allergies Allergy/AdvReac Type Severity Reaction Status Date / Time No Known Allergies Allergy Verified 10/21/18 11:42 Physical Exam - Constitutional Appears: No Acute Distress - Eye Exam Eye Exam: EOMI - ENT Exam ENT Exam: Mucous Membranes Moist - Respiratory Exam Respiratory Exam: NORMAL BREATHING PATTERN. absent: Wheezes - Cardiovascular Exam Cardiovascular Exam: Irregular Rhythm, +S1, +S2 Additional comments: Distant heart sounds - GI/Abdominal Exam GI & Abdominal Exam: Normal Bowel Sounds, Soft. absent: Tenderness - Extremities Exam Extremities exam: Positive for: pedal edema (bilaterally). Negative for: calf tenderness - Neurological Exam Neurological exam: Alert, CN II-XII Intact, Oriented x3 - Psychiatric Exam Psychiatric exam: Normal Affect, Normal Mood - Skin Skin Exam: Abrasion (L lower extremity) Results - Vital Signs Recent Vital Signs: Last Vital Signs Temp 98.1 F 10/21/18 13:20 Pulse 69 10/21/18 14:13 Resp 18 10/21/18 13:20 BP 120/77 10/21/18 14:15 Pulse Ox 98 10/21/18 14:13 - Labs Result Diagrams: 10/21/18 12:16 10/21/18 12:16 Labs: Laboratory Results - last 24 hr 10/21/18 10/21/18 10/21/18 12:06 12:16 12:16 WBC 9.6 RBC 3.84 L Hgb 10.8 L D Hct 33.7 L MCV 87.9 MCH 28.1 MCHC 31.9 L RDW 17.6 H Plt Count 401 H D MPV 8.9 Neut % (Auto) 81.4 H Lymph % (Auto) 8.8 L Starr % (Auto) 7.8 Eos % (Auto) 0.7 Baso % (Auto) 1.3 Neut # (Auto) 7.8 H Lymph # (Auto) 0.8 L Starr # (Auto) 0.8 Eos # (Auto) 0.1 Baso # (Auto) 0.1 Neutrophils % (Manual) 82 H Lymphocytes % (Manual) 10 L Monocytes % (Manual) 5 Basophils % (Manual) 1 Metamyelocytes % 1 H Myelocytes % 1 H Platelet Estimate Normal Large Platelets Present Giant Platelets Present Hypochromasia (manual) Slight Anisocytosis (manual) Slight Ovalocytes Slight PT INR APTT pCO2 pO2 HCO3 ABG pH ABG Total CO2 ABG O2 Saturation ABG O2 Content ABG Base Excess ABG Hemoglobin ABG Carboxyhemoglobin POC ABG HHb (Measured) ABG Methemoglobin ABG O2 Capacity Thor Test A-a O2 Difference Hgb O2 Saturation FiO2 Sodium 137 Potassium 4.8 Chloride 103 Carbon Dioxide 21 L Anion Gap 18 BUN 43 H Creatinine 1.7 H Est GFR ( Amer) 47 Est GFR (Non-Af Amer) 39 POC Glucose (mg/dL) 325 H Random Glucose 297 H Calcium 9.4 Phosphorus 3.7 Total Bilirubin 0.6 AST 72 H D ALT 37 Alkaline Phosphatase 102 Troponin I 0.0700 NT-Pro-B Natriuret Pep 3230 H Total Protein 7.3 Albumin 3.8 Globulin 3.5 Albumin/Globulin Ratio 1.1 10/21/18 10/21/18 12:16 14:41 WBC RBC Hgb Hct MCV MCH MCHC RDW Plt Count MPV Neut % (Auto) Lymph % (Auto) Starr % (Auto) Eos % (Auto) Baso % (Auto) Neut # (Auto) Lymph # (Auto) Starr # (Auto) Eos # (Auto) Baso # (Auto) Neutrophils % (Manual) Lymphocytes % (Manual) Monocytes % (Manual) Basophils % (Manual) Metamyelocytes % Myelocytes % Platelet Estimate Large Platelets Giant Platelets Hypochromasia (manual) Anisocytosis (manual) Ovalocytes PT 14.1 H INR 1.2 APTT 31.7 pCO2 34 L pO2 80 HCO3 23.4 ABG pH 7.42 ABG Total CO2 23.1 ABG O2 Saturation 99.5 H ABG O2 Content 15.3 ABG Base Excess -1.9 ABG Hemoglobin 11.4 L ABG Carboxyhemoglobin 2.4 H POC ABG HHb (Measured) 0.5 ABG Methemoglobin 2.0 ABG O2 Capacity 15.4 L Thor Test Yes A-a O2 Difference 27.0 Hgb O2 Saturation 95.1 FiO2 21.0 Sodium Potassium Chloride Carbon Dioxide Anion Gap BUN Creatinine Est GFR ( Amer) Est GFR (Non-Af Amer) POC Glucose (mg/dL) Random Glucose Calcium Phosphorus Total Bilirubin AST ALT Alkaline Phosphatase Troponin I NT-Pro-B Natriuret Pep Total Protein Albumin Globulin Albumin/Globulin Ratio Assessment & Plan - Assessment and Plan (Free Text) Assessment: 78 yo M with pmhx of CHF, Cardiac bypass (x5 per patient), afib, peripheral artery disease, HTN, DM, dyslipidemia, enlarged prostate, COPD presents to the ED with 3 day history of SOB. Admitted for CHF exacerbation. Plan: CHF exacerbation -Admit to tele -BNP: 3230; (06/2018) -ECHO: 06/2018: EF: 10-15%; Moderate MR, severe pulm HTN -s/p: IV lasix 80 mg in ER -Cardiology: Dr. uGerrero: recs appreciated -elevation of lower extremities -c/w lasix, spironolactone AFIB -Cardiology: Dr. Guerrero: recs appreciated -pvc monitor -c/w xarelto CAD/PAD -Cardiology: Dr. Guerrero: recs appreciated HTN -Cardiology: Dr. Guerrero: recs appreciated -c/w amlodipine -monitor vitals DM -accuchecks -hypoglycemia protocol -ICS medium dose -heart healthy diet CKD stage 3 -GFR: 47 -BUN: 43; Cr: 1.7; Cr clearance: 51 -Consider nephrology consult DLD -lipid panel 07/25/2018: T; TC: 147; LDL:97; HDL: 34 -start statin COPD -Pulmonology: Dr. Bone: recs appreciated -monitor O2 sat, SOB Enlarged prostate -no urinary symptoms at this time -Pt to f/u with Dr. Thomas -pt on flowmax DVT prophylaxis -SCDs when LE swelling reduced -Encourage ambulation as tolerated Case and plan d/w Dr. Jp Ly MD PGY-2 <Alexei Trammell D - Last Filed: 10/21/18 19:09> Results - Vital Signs Recent Vital Signs: Last Vital Signs Temp 98.3 F 10/21/18 17:19 Pulse 79 10/21/18 17:19 Resp 20 10/21/18 17:19 BP 159/64 H 10/21/18 17:19 Pulse Ox 100 10/21/18 17:19 - Labs Result Diagrams: 10/21/18 12:16 10/21/18 12:16 Labs: Laboratory Results - last 24 hr 10/21/18 10/21/18 10/21/18 12:06 12:16 12:16 WBC 9.6 RBC 3.84 L Hgb 10.8 L D Hct 33.7 L MCV 87.9 MCH 28.1 MCHC 31.9 L RDW 17.6 H Plt Count 401 H D MPV 8.9 Neut % (Auto) 81.4 H Lymph % (Auto) 8.8 L Starr % (Auto) 7.8 Eos % (Auto) 0.7 Baso % (Auto) 1.3 Neut # (Auto) 7.8 H Lymph # (Auto) 0.8 L Starr # (Auto) 0.8 Eos # (Auto) 0.1 Baso # (Auto) 0.1 Neutrophils % (Manual) 82 H Lymphocytes % (Manual) 10 L Monocytes % (Manual) 5 Basophils % (Manual) 1 Metamyelocytes % 1 H Myelocytes % 1 H Platelet Estimate Normal Large Platelets Present Giant Platelets Present Hypochromasia (manual) Slight Anisocytosis (manual) Slight Ovalocytes Slight PT INR APTT pCO2 pO2 HCO3 ABG pH ABG Total CO2 ABG O2 Saturation ABG O2 Content ABG Base Excess ABG Hemoglobin ABG Carboxyhemoglobin POC ABG HHb (Measured) ABG Methemoglobin ABG O2 Capacity Thor Test A-a O2 Difference Hgb O2 Saturation FiO2 Sodium 137 Potassium 4.8 Chloride 103 Carbon Dioxide 21 L Anion Gap 18 BUN 43 H Creatinine 1.7 H Est GFR ( Amer) 47 Est GFR (Non-Af Amer) 39 POC Glucose (mg/dL) 325 H Random Glucose 297 H Calcium 9.4 Phosphorus 3.7 Total Bilirubin 0.6 AST 72 H D ALT 37 Alkaline Phosphatase 102 Troponin I 0.0700 NT-Pro-B Natriuret Pep 3230 H Total Protein 7.3 Albumin 3.8 Globulin 3.5 Albumin/Globulin Ratio 1.1 10/21/18 10/21/18 10/21/18 12:16 14:41 15:15 WBC RBC Hgb Hct MCV MCH MCHC RDW Plt Count MPV Neut % (Auto) Lymph % (Auto) Starr % (Auto) Eos % (Auto) Baso % (Auto) Neut # (Auto) Lymph # (Auto) Starr # (Auto) Eos # (Auto) Baso # (Auto) Neutrophils % (Manual) Lymphocytes % (Manual) Monocytes % (Manual) Basophils % (Manual) Metamyelocytes % Myelocytes % Platelet Estimate Large Platelets Giant Platelets Hypochromasia (manual) Anisocytosis (manual) Ovalocytes PT 14.1 H INR 1.2 APTT 31.7 pCO2 34 L pO2 80 HCO3 23.4 ABG pH 7.42 ABG Total CO2 23.1 ABG O2 Saturation 99.5 H ABG O2 Content 15.3 ABG Base Excess -1.9 ABG Hemoglobin 11.4 L ABG Carboxyhemoglobin 2.4 H POC ABG HHb (Measured) 0.5 ABG Methemoglobin 2.0 ABG O2 Capacity 15.4 L Thor Test Yes A-a O2 Difference 27.0 Hgb O2 Saturation 95.1 FiO2 21.0 Sodium Potassium Chloride Carbon Dioxide Anion Gap BUN Creatinine Est GFR ( Amer) Est GFR (Non-Af Amer) POC Glucose (mg/dL) 289 H Random Glucose Calcium Phosphorus Total Bilirubin AST ALT Alkaline Phosphatase Troponin I NT-Pro-B Natriuret Pep Total Protein Albumin Globulin Albumin/Globulin Ratio 10/21/18 18:19 WBC RBC Hgb Hct MCV MCH MCHC RDW Plt Count MPV Neut % (Auto) Lymph % (Auto) Starr % (Auto) Eos % (Auto) Baso % (Auto) Neut # (Auto) Lymph # (Auto) Starr # (Auto) Eos # (Auto) Baso # (Auto) Neutrophils % (Manual) Lymphocytes % (Manual) Monocytes % (Manual) Basophils % (Manual) Metamyelocytes % Myelocytes % Platelet Estimate Large Platelets Giant Platelets Hypochromasia (manual) Anisocytosis (manual) Ovalocytes PT INR APTT pCO2 pO2 HCO3 ABG pH ABG Total CO2 ABG O2 Saturation ABG O2 Content ABG Base Excess ABG Hemoglobin ABG Carboxyhemoglobin POC ABG HHb (Measured) ABG Methemoglobin ABG O2 Capacity Thor Test A-a O2 Difference Hgb O2 Saturation FiO2 Sodium Potassium Chloride Carbon Dioxide Anion Gap BUN Creatinine Est GFR ( Amer) Est GFR (Non-Af Amer) POC Glucose (mg/dL) 295 H Random Glucose Calcium Phosphorus Total Bilirubin AST ALT Alkaline Phosphatase Troponin I NT-Pro-B Natriuret Pep Total Protein Albumin Globulin Albumin/Globulin Ratio Attending/Attestation - Attestation I have personally seen and examined this patient.: Yes I have fully participated in the care of the patient.: Yes I have reviewed all pertinent clinical information: Yes Notes (Text): 10/21/18 19:09 Patient seen and examined. Case discussed and agreed with assessment and plan of management.
[2018-10-21] MEDS ORDERED: Glucagon Recombinant 1 mg Inj IM PRN (15:41)
[2018-10-21] MEDS ORDERED: Dextrose 50% SYRINGE Inj (50 ml) IV PRN (15:41)
--- NOTE | 2018-10-21 15:48 | CP.PCM.CON ---
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 Past Patient History - Tetanus Immunizations Tetanus Immunization: Unknown - Past Medical History & Family History Past Medical History?: Yes - Past Social History Smoking Status: Former Smoker - CARDIAC Hx Atrial Fibrillation: Yes Hx Cardia Arrhythmia: Yes Hx Congestive Heart Failure: Yes Hx Hypercholesterolemia: Yes Hx Hypertension: Yes Hx Mitral Valve Prolapse: No Hx Pacemaker: No Hx Peripheral Edema: Yes - PULMONARY Hx Asthma: No Hx Bronchitis: No Hx Chronic Obstructive Pulmonary Disease (COPD): Yes Hx Emphysema: No Hx Pneumonia: Yes Hx Pulmonary Embolism: No Hx Sleep Apnea: No - NEUROLOGICAL Hx Alzheimer's Disease: No Hx Dementia: No Hx Migraine: No Hx Multiple Sclerosis: No Hx Parkinson's Disease: No Hx Seizures: No Hx Transient Ischemic Attacks (TIA): No - HEENT Hx HEENT Problems: Yes - RENAL Hx Chronic Kidney Disease: No Hx Kidney Stones: No - ENDOCRINE/METABOLIC Hx Hyperthyroidism: No Hx Hypothyroidism: No - HEMATOLOGICAL/ONCOLOGICAL Hx Anemia: No Hx Human Immunodeficiency Virus (HIV): No Hx Sickle Cell Disease: No - INTEGUMENTARY Hx Dermatological Problems: No - MUSCULOSKELETAL/RHEUMATOLOGICAL Hx Arthritis: Yes Hx Fractures: No Hx Osteoporosis: No Hx Rheumatoid Arthritis: No - GASTROINTESTINAL Hx Crohn's Disease: No Hx Diverticulitis: No Hx Gall Bladder Disease: No Hx Gastritis: No Hx Pancreatitis: No - GENITOURINARY/GYNECOLOGICAL Hx Sexually Transmitted Disorders: No - PSYCHIATRIC Hx Anxiety: No Hx Bipolar Disorder: No Hx Depression: No Hx Paranoia: No Hx Post Traumatic Stress Disorder: No Hx Schizophrenia: No - SURGICAL HISTORY Hx Appendectomy: No Hx Carotid Endarterectomy: No Hx Cholecystectomy: No Hx Coronary Artery Bypass Graft: Yes (5x) Hx Coronary Stent: Yes Hx Tonsillectomy: No - ANESTHESIA Hx Anesthesia: Yes Hx Anesthesia Reactions: No Hx Malignant Hyperthermia: No Meds Allergies/Adverse Reactions: Allergies Allergy/AdvReac Type Severity Reaction Status Date / Time No Known Allergies Allergy Verified 10/21/18 11:42 - Medications Medications: Current Medications Amlodipine Besylate (Norvasc) 10 mg PO DAILY [facility] Rivaroxaban (Xarelto) 15 mg PO QD5 [facility]; Protocol Spironolactone (Aldactone) 50 mg PO DAILY [facility] Zolpidem Tartrate (Ambien) 10 mg PO HS [facility] Physical Exam - Respiratory Exam Respiratory Exam: Rales - Cardiovascular Exam Cardiovascular Exam: Irregular Rhythm - Extremities Exam Extremities exam: Positive for: pedal edema Additional comments: 3+ pitting edema Results - Vital Signs Recent Vital Signs: Last Vital Signs Temp 98.1 F 10/21/18 13:20 Pulse 62 10/21/18 15:09 Resp 18 10/21/18 15:09 BP 115/61 10/21/18 15:09 Pulse Ox 100 10/21/18 15:09 - Labs Result Diagrams: 10/22/18 04:30 10/22/18 04:30 Labs: Laboratory Results - last 24 hr 10/21/18 10/21/18 10/21/18 12:06 12:16 12:16 WBC 9.6 RBC 3.84 L Hgb 10.8 L D Hct 33.7 L MCV 87.9 MCH 28.1 MCHC 31.9 L RDW 17.6 H Plt Count 401 H D MPV 8.9 Neut % (Auto) 81.4 H Lymph % (Auto) 8.8 L [place] % (Auto) 7.8 Eos % (Auto) 0.7 Baso % (Auto) 1.3 Neut # (Auto) 7.8 H Lymph # (Auto) 0.8 L [place] # (Auto) 0.8 Eos # (Auto) 0.1 Baso # (Auto) 0.1 Neutrophils % (Manual) 82 H Lymphocytes % (Manual) 10 L Monocytes % (Manual) 5 Basophils % (Manual) 1 Metamyelocytes % 1 H Myelocytes % 1 H Platelet Estimate Normal Large Platelets Present Giant Platelets Present Hypochromasia (manual) Slight Anisocytosis (manual) Slight Ovalocytes Slight PT INR APTT pCO2 pO2 HCO3 ABG pH ABG Total CO2 ABG O2 Saturation ABG O2 Content ABG Base Excess ABG Hemoglobin ABG Carboxyhemoglobin POC ABG HHb (Measured) ABG Methemoglobin ABG O2 Capacity Thor Test A-a O2 Difference Hgb O2 Saturation FiO2 Sodium 137 Potassium 4.8 Chloride 103 Carbon Dioxide 21 L Anion Gap 18 BUN 43 H Creatinine 1.7 H Est GFR ( Amer) 47 Est GFR (Non-Af Amer) 39 POC Glucose (mg/dL) 325 H Random Glucose 297 H Calcium 9.4 Phosphorus 3.7 Total Bilirubin 0.6 AST 72 H D ALT 37 Alkaline Phosphatase 102 Troponin I 0.0700 NT-Pro-B Natriuret Pep 3230 H Total Protein 7.3 Albumin 3.8 Globulin 3.5 Albumin/Globulin Ratio 1.1 10/21/18 10/21/18 12:16 14:41 WBC RBC Hgb Hct MCV MCH MCHC RDW Plt Count MPV Neut % (Auto) Lymph % (Auto) [place] % (Auto) Eos % (Auto) Baso % (Auto) Neut # (Auto) Lymph # (Auto) [place] # (Auto) Eos # (Auto) Baso # (Auto) Neutrophils % (Manual) Lymphocytes % (Manual) Monocytes % (Manual) Basophils % (Manual) Metamyelocytes % Myelocytes % Platelet Estimate Large Platelets Giant Platelets Hypochromasia (manual) Anisocytosis (manual) Ovalocytes PT 14.1 H INR 1.2 APTT 31.7 pCO2 34 L pO2 80 HCO3 23.4 ABG pH 7.42 ABG Total CO2 23.1 ABG O2 Saturation 99.5 H ABG O2 Content 15.3 ABG Base Excess -1.9 ABG Hemoglobin 11.4 L ABG Carboxyhemoglobin 2.4 H POC ABG HHb (Measured) 0.5 ABG Methemoglobin 2.0 ABG O2 Capacity 15.4 L Thor Test Yes A-a O2 Difference 27.0 Hgb O2 Saturation 95.1 FiO2 21.0 Sodium Potassium Chloride Carbon Dioxide Anion Gap BUN Creatinine Est GFR ( Amer) Est GFR (Non-Af Amer) POC Glucose (mg/dL) Random Glucose Calcium Phosphorus Total Bilirubin AST ALT Alkaline Phosphatase Troponin I NT-Pro-B Natriuret Pep Total Protein Albumin Globulin Albumin/Globulin Ratio Assessment & Plan (1) Acute on chronic systolic congestive heart failure Assessment and Plan: will start laix 40mg IV BID Status: Acute (2) COPD (chronic obstructive pulmonary disease) Status: Chronic Priority: High (3) DM2 (diabetes mellitus, type 2) Status: Chronic Priority: High (4) HTN (hypertension) Status: Chronic Priority: High (5) Peripheral arterial disease Status: Chronic Priority: High - Assessment and Plan (Free Text) Assessment: CHF I50.23 HTn DM Hyperlipidemia CABG 2007 Coronary stents - LAD / LCx 2008 Chronic Atrial Fibrillation 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
--- NOTE | 2018-10-21 17:18 | RAD ---
Date of service: 10/21/2018 HISTORY: SOB COMPARISON: None available. TECHNIQUE: 1 view obtained. FINDINGS: LUNGS: No active pulmonary disease. PLEURA: No significant pleural effusion identified, no pneumothorax apparent. CARDIOVASCULAR: No aortic atherosclerotic calcification present. Cardiomegaly stable. Post CABG changes reiterated. No pulmonary vascular congestion. OSSEOUS STRUCTURES: No significant abnormalities. VISUALIZED UPPER ABDOMEN: Normal. OTHER FINDINGS: None. IMPRESSION: No acute cardiopulmonary disease appreciated. Stable cardiomegaly.
[2018-10-21] MEDS: Insulin Regular 100 units/ml SC SCH ×2 (18:41→21:31)
--- NOTE | 2018-10-21 19:20 | CP.PCM.CON ---
History of Present Illness - History of Present Illness History of Present Illness: This 78 year old male presented to the [facility] room with a history of increasing pedal edema and repeated falls at home. He claims to have been compliant with his medical regimen and maintains a diet without added salt. There has been no chest pain, fever or chills at home. He does have increased dyspnea on exertion, and this has been increasing recently. He does have nocturia, but denies orthopnea. There has been increasing dependant edema of the lower extremities without calf pain. 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 Past Patient History - Tetanus Immunizations Tetanus Immunization: Unknown - Past Medical History & Family History Past Medical History?: Yes - Past Social History Smoking Status: Former Smoker - CARDIAC Hx Atrial Fibrillation: Yes Hx Cardia Arrhythmia: Yes Hx Congestive Heart Failure: Yes Hx Hypercholesterolemia: Yes Hx Hypertension: Yes Hx Mitral Valve Prolapse: No Hx Pacemaker: No Hx Peripheral Edema: Yes - PULMONARY Hx Asthma: No Hx Bronchitis: No Hx Chronic Obstructive Pulmonary Disease (COPD): Yes Hx Emphysema: No Hx Pneumonia: Yes Hx Pulmonary Embolism: No Hx Sleep Apnea: No - NEUROLOGICAL Hx Alzheimer's Disease: No Hx Dementia: No Hx Migraine: No Hx Multiple Sclerosis: No Hx Parkinson's Disease: No Hx Seizures: No Hx Transient Ischemic Attacks (TIA): No - HEENT Hx HEENT Problems: Yes - RENAL Hx Chronic Kidney Disease: No Hx Kidney Stones: No - ENDOCRINE/METABOLIC Hx Hyperthyroidism: No Hx Hypothyroidism: No - HEMATOLOGICAL/ONCOLOGICAL Hx Anemia: No Hx Human Immunodeficiency Virus (HIV): No Hx Sickle Cell Disease: No - INTEGUMENTARY Hx Dermatological Problems: No - MUSCULOSKELETAL/RHEUMATOLOGICAL Hx Arthritis: Yes Hx Fractures: No Hx Osteoporosis: No Hx Rheumatoid Arthritis: No - GASTROINTESTINAL Hx Crohn's Disease: No Hx Diverticulitis: No Hx Gall Bladder Disease: No Hx Gastritis: No Hx Pancreatitis: No - GENITOURINARY/GYNECOLOGICAL Hx Sexually Transmitted Disorders: No - PSYCHIATRIC Hx Anxiety: No Hx Bipolar Disorder: No Hx Depression: No Hx Paranoia: No Hx Post Traumatic Stress Disorder: No Hx Schizophrenia: No - SURGICAL HISTORY Hx Appendectomy: No Hx Carotid Endarterectomy: No Hx Cholecystectomy: No Hx Coronary Artery Bypass Graft: Yes (5x) Hx Coronary Stent: Yes Hx Tonsillectomy: No - ANESTHESIA Hx Anesthesia: Yes Hx Anesthesia Reactions: No Hx Malignant Hyperthermia: No Meds Allergies/Adverse Reactions: Allergies Allergy/AdvReac Type Severity Reaction Status Date / Time No Known Allergies Allergy Verified 10/21/18 11:42 - Medications Medications: Current Medications Amlodipine Besylate (Norvasc) 10 mg PO DAILY [facility] Dextrose (Dextrose 50% Inj) 0 ml IV STAT PRN; Protocol PRN Reason: Hypoglycemia Protocol Dextrose (Glutose 15) 0 gm PO ONCE PRN; Protocol PRN Reason: Hypoglycemia Protocol Furosemide (Lasix) 40 mg IV Q12 [facility] Glucagon (Glucagen Diagnostic Kit) 0 mg IM STAT PRN; Protocol PRN Reason: Hypoglycemia Protocol Insulin Human Regular (Humulin R) 0 units SC ACHS [facility]; Protocol Last Admin: 10/21/18 18:41 Dose: 4 u Rivaroxaban (Xarelto) 15 mg PO QD5 [facility]; Protocol Last Admin: 10/21/18 17:24 Dose: 15 mg Spironolactone (Aldactone) 50 mg PO DAILY [facility] Zolpidem Tartrate (Ambien) 10 mg PO HS [facility] Physical Exam - Additional Findings Additional findings: Awake and well oriented, yawning frequently. Dependant edema ++ bilateral LEs up to thighs bilaterally. No cyanosis, no calf tenderness pr palpable venous cords. Neck is supple and trachea midline, + JVD, no carotid bruit. No dullness on chest percussion, equal expansion. Breath sounds are diminished bilaterally without audible wheezes. Few dry rales are present in both lower lobes posteriorly. No bronchial breath sounds or egophony. Heart sounds are distant and irregular. Abdomen is soft and non-tender with normal bowel sounds. Results - Vital Signs Recent Vital Signs: Last Vital Signs Temp 98.3 F 10/21/18 17:19 Pulse 79 10/21/18 17:19 Resp 20 10/21/18 17:19 BP 159/64 H 10/21/18 17:19 Pulse Ox 100 10/21/18 17:19 - Labs Result Diagrams: 10/21/18 12:16 10/21/18 12:16 Labs: Laboratory Results - last 24 hr 10/21/18 10/21/18 10/21/18 12:06 12:16 12:16 WBC 9.6 RBC 3.84 L Hgb 10.8 L D Hct 33.7 L MCV 87.9 MCH 28.1 MCHC 31.9 L RDW 17.6 H Plt Count 401 H D MPV 8.9 Neut % (Auto) 81.4 H Lymph % (Auto) 8.8 L [place] % (Auto) 7.8 Eos % (Auto) 0.7 Baso % (Auto) 1.3 Neut # (Auto) 7.8 H Lymph # (Auto) 0.8 L [place] # (Auto) 0.8 Eos # (Auto) 0.1 Baso # (Auto) 0.1 Neutrophils % (Manual) 82 H Lymphocytes % (Manual) 10 L Monocytes % (Manual) 5 Basophils % (Manual) 1 Metamyelocytes % 1 H Myelocytes % 1 H Platelet Estimate Normal Large Platelets Present Giant Platelets Present Hypochromasia (manual) Slight Anisocytosis (manual) Slight Ovalocytes Slight PT INR APTT pCO2 pO2 HCO3 ABG pH ABG Total CO2 ABG O2 Saturation ABG O2 Content ABG Base Excess ABG Hemoglobin ABG Carboxyhemoglobin POC ABG HHb (Measured) ABG Methemoglobin ABG O2 Capacity Thor Test A-a O2 Difference Hgb O2 Saturation FiO2 Sodium 137 Potassium 4.8 Chloride 103 Carbon Dioxide 21 L Anion Gap 18 BUN 43 H Creatinine 1.7 H Est GFR ( Amer) 47 Est GFR (Non-Af Amer) 39 POC Glucose (mg/dL) 325 H Random Glucose 297 H Calcium 9.4 Phosphorus 3.7 Total Bilirubin 0.6 AST 72 H D ALT 37 Alkaline Phosphatase 102 Troponin I 0.0700 NT-Pro-B Natriuret Pep 3230 H Total Protein 7.3 Albumin 3.8 Globulin 3.5 Albumin/Globulin Ratio 1.1 10/21/18 10/21/18 10/21/18 12:16 14:41 15:15 WBC RBC Hgb Hct MCV MCH MCHC RDW Plt Count MPV Neut % (Auto) Lymph % (Auto) [place] % (Auto) Eos % (Auto) Baso % (Auto) Neut # (Auto) Lymph # (Auto) [place] # (Auto) Eos # (Auto) Baso # (Auto) Neutrophils % (Manual) Lymphocytes % (Manual) Monocytes % (Manual) Basophils % (Manual) Metamyelocytes % Myelocytes % Platelet Estimate Large Platelets Giant Platelets Hypochromasia (manual) Anisocytosis (manual) Ovalocytes PT 14.1 H INR 1.2 APTT 31.7 pCO2 34 L pO2 80 HCO3 23.4 ABG pH 7.42 ABG Total CO2 23.1 ABG O2 Saturation 99.5 H ABG O2 Content 15.3 ABG Base Excess -1.9 ABG Hemoglobin 11.4 L ABG Carboxyhemoglobin 2.4 H POC ABG HHb (Measured) 0.5 ABG Methemoglobin 2.0 ABG O2 Capacity 15.4 L Thor Test Yes A-a O2 Difference 27.0 Hgb O2 Saturation 95.1 FiO2 21.0 Sodium Potassium Chloride Carbon Dioxide Anion Gap BUN Creatinine Est GFR ( Amer) Est GFR (Non-Af Amer) POC Glucose (mg/dL) 289 H Random Glucose Calcium Phosphorus Total Bilirubin AST ALT Alkaline Phosphatase Troponin I NT-Pro-B Natriuret Pep Total Protein Albumin Globulin Albumin/Globulin Ratio 10/21/18 18:19 WBC RBC Hgb Hct MCV MCH MCHC RDW Plt Count MPV Neut % (Auto) Lymph % (Auto) [place] % (Auto) Eos % (Auto) Baso % (Auto) Neut # (Auto) Lymph # (Auto) [place] # (Auto) Eos # (Auto) Baso # (Auto) Neutrophils % (Manual) Lymphocytes % (Manual) Monocytes % (Manual) Basophils % (Manual) Metamyelocytes % Myelocytes % Platelet Estimate Large Platelets Giant Platelets Hypochromasia (manual) Anisocytosis (manual) Ovalocytes PT INR APTT pCO2 pO2 HCO3 ABG pH ABG Total CO2 ABG O2 Saturation ABG O2 Content ABG Base Excess ABG Hemoglobin ABG Carboxyhemoglobin POC ABG HHb (Measured) ABG Methemoglobin ABG O2 Capacity Thor Test A-a O2 Difference Hgb O2 Saturation FiO2 Sodium Potassium Chloride Carbon Dioxide Anion Gap BUN Creatinine Est GFR ( Amer) Est GFR (Non-Af Amer) POC Glucose (mg/dL) 295 H Random Glucose Calcium Phosphorus Total Bilirubin AST ALT Alkaline Phosphatase Troponin I NT-Pro-B Natriuret Pep Total Protein Albumin Globulin Albumin/Globulin Ratio Assessment & Plan (1) CHF exacerbation Status: Acute Priority: High (2) COPD (chronic obstructive pulmonary disease) Status: Chronic Priority: High (3) DM2 (diabetes mellitus, type 2) Status: Chronic Priority: High (4) Peripheral arterial disease Status: Chronic Priority: High - Assessment and Plan (Free Text) Plan: Sodium restricted diet. Parenteral diuretic therapy. Aerosol therapy. Continue maintenance medications. Entresto candidate? Referral to CHF program? - Date & Time Date: 10/21/18 Time: 19:27
[2018-10-21] MEDS: Albuterol-Ipratrop 3 mg / 0.5 (3 ml) UD INH SCH (20:51)
[2018-10-21 23:34] LABS: SQUAMOUS EPITHIAL 1 /hpf (0-5); URINE BACTERIA RARE (<OCC); URINE BILIRUBIN NEGATIVE (NEGATIVE); URINE BLOOD NEGATIVE (NEGATIVE); URINE CLARITY CLEAR (Clear); URINE COLOR YELLOW (YELLOW); URINE GLUCOSE (UA) NEG (NEGATIVE); URINE LEUKOCYTE ESTERASE TRACE Leu/uL (Negative); URINE PROTEIN NEGATIVE (NEGATIVE); URINE UROBILINOGEN 0.2-1.0 mg/dL (0.2-1.0)
[2018-10-22 06:36] LABS: BASO # 0.1 K/uL (0.0-0.2); BASO % 1.2 % (0.0-2.0); EOS # 0.1 K/uL (0.0-0.7); EOS % 0.7 % (0.0-4.0); HEMOGLOBIN 10.3 g/dL (12.0-18.0); LYMPH # 1.1 K/uL (1.0-4.3); LYMPH % 11.5 % (20.0-40.0); MEAN CELL VOLUME 87.2 fl (80.0-94.0); MEAN CORPUSCULAR HEMOGLOBIN 28.1 pg (27.0-31.0); MEAN CORPUSCULAR HGB CONC 32.3 g/dL (33.0-37.0); MEAN PLATELET VOLUME 8.2 fl (7.2-11.7); MONO # 0.8 K/uL (0.0-0.8); NEUT # 7.2 K/uL (1.8-7.0); NEUT % 77.6 % (50.0-75.0); RBC 3.65 Mil/uL (4.40-5.90); RED CELL DISTRIBUTION WIDTH 17.2 % (11.5-14.5); WHITE BLOOD COUNT 9.3 K/uL (4.8-10.8)
[2018-10-22 07:02] LABS: CALCIUM 9.4 mg/dL (8.4-10.2)
[2018-10-22] MEDS: Insulin Regular 100 units/ml SC SCH ×4 (07:57→23:05)
[2018-10-22] MEDS: Albuterol-Ipratrop 3 mg / 0.5 (3 ml) UD INH SCH ×4 (08:02→19:10)
--- NOTE | 2018-10-22 10:26 | CARD ---
APPROVED REPORT Date of service: 10/21/2018 EKG Measurement Heart [id number] <Conclusion> Atrial fibrillation Low voltage QRS Inferior infarct, age undetermined Poor R wave progression in Precordial leads Abnormal ECG
--- NOTE | 2018-10-22 10:43 | CP.PCM.PN ---
Subjective - Date & Time of Evaluation Date of Evaluation: 10/22/18 Time of Evaluation: 09:00 - Subjective Subjective: Pt feels better less SOB today denies CP no palpitation no abd pain ++ leg edema No fever Tele monitor: A fib , rate controlled Objective - Vital Signs/Intake and Output Vital Signs (last 24 hours): Temp Pulse Resp BP Pulse Ox 98.2 F 83 20 119/76 93 L 10/22/18 08:17 10/22/18 08:25 10/22/18 08:17 10/22/18 08:25 10/22/18 08:17 - Medications Medications: Current Medications Albuterol/Ipratropium (Duoneb 3 Mg/0.5 Mg (3 Ml) Ud) 3 ml INH RQID [facility] Last Admin: 10/22/18 08:02 Dose: 3 ml Amlodipine Besylate (Norvasc) 10 mg PO DAILY [facility] Last Admin: 10/22/18 08:25 Dose: 10 mg Dextrose (Dextrose 50% Inj) 0 ml IV STAT PRN; Protocol PRN Reason: Hypoglycemia Protocol Dextrose (Glutose 15) 0 gm PO ONCE PRN; Protocol PRN Reason: Hypoglycemia Protocol Furosemide (Lasix) 40 mg IV Q12 [facility] Last Admin: 10/22/18 08:25 Dose: 40 mg Glucagon (Glucagen Diagnostic Kit) 0 mg IM STAT PRN; Protocol PRN Reason: Hypoglycemia Protocol Insulin Human Regular (Humulin R) 0 units SC ACHS [facility]; Protocol Last Admin: 10/22/18 07:57 Dose: 3 u Rivaroxaban (Xarelto) 15 mg PO QD5 [facility]; Protocol Last Admin: 10/21/18 17:24 Dose: 15 mg Spironolactone (Aldactone) 50 mg PO BID [facility] Last Admin: 10/22/18 08:24 Dose: 50 mg Zolpidem Tartrate (Ambien) 10 mg PO HS [facility] Last Admin: 10/21/18 21:29 Dose: 10 mg - Labs Labs: 10/22/18 04:30 10/22/18 04:30 PT 14.1 Seconds (9.8-13.1) H 10/21/18 12:16 INR 1.2 10/21/18 12:16 APTT 31.7 Seconds (25.6-37.1) 10/21/18 12:16 - Constitutional Appears: Non-toxic, No Acute Distress, Chronically Ill - Head Exam Head Exam: ATRAUMATIC, NORMAL INSPECTION, NORMOCEPHALIC - Eye Exam Eye Exam: EOMI, Normal appearance Pupil Exam: NORMAL ACCOMODATION - ENT Exam ENT Exam: Mucous Membranes Moist, Normal External Ear Exam - Neck Exam Neck Exam: Full ROM. absent: Meningismus - Respiratory Exam Respiratory Exam: Rales (bases), NORMAL BREATHING PATTERN. absent: Respiratory Distress - Cardiovascular Exam Cardiovascular Exam: Irregular Rhythm, +S1, +S2 - GI/Abdominal Exam GI & Abdominal Exam: Soft, Normal Bowel Sounds. absent: Tenderness - Extremities Exam Extremities Exam: Normal Capillary Refill, Pedal Edema - Back Exam Back Exam: Full ROM. absent: CVA tenderness (L), CVA tenderness (R), paraspinal tenderness - Neurological Exam Neurological Exam: Alert, Awake, Oriented x3 - Psychiatric Exam Psychiatric exam: Normal Affect, Normal Mood - Skin Skin Exam: Dry, Normal Color, Warm Assessment and Plan - Assessment and Plan (Free Text) Plan: 1. Acute on Chronic sytolic and diastolic dysfunction EF 10-15 % -cont IV Lasix, cont Spirinolactone - Cardiology consulted - will consider Entresto on discharge ( nonformulary), pt not on QUENTIN - no need for washout period - low salt diet, fluid restriction 2. A Fib/Flutter, rate controlled - cont Xarelto 3. DM type II on Insulin - restart Humulin N , pt is on 30 units SQ BID at home, will restart at half dose for now , Accucheck with coverage 4. 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 COPD , chronic - cont Duoneb 6. CKD Stage III
[2018-10-22] MEDS ORDERED: Insulin NPH Human 100 Units/ml Inj SC SCH (17:00)
[2018-10-22] MEDS: Insulin NPH Human 100 Units/ml Inj SC SCH (17:04)
--- NOTE | 2018-10-22 19:53 | CP.PCM.CON ---
History of Present Illness - History of Present Illness History of Present Illness: Podiatry Consult Note for Dr. Brown 78M seen and evaluated at bedside for b/l hallux wounds. Patient states that he follows up with Dr. Brown regularly for wound care and most recently saw him at his office on 10/18. He denies any new complaints with his ulcers. Denies any new drainage, malodor, erythema, pain or other clinical signs of infection. He is AAO x 3 and NAD at time of visit surrounded by family. Denies any further pedal complaints at this time. 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 Reports social alcohol, not significant to quantify. Rx: on med rec NKDA Review of Systems - Review of Systems All systems: reviewed and no additional remarkable complaints except Review of Systems: as per HPI Past Patient History - Tetanus Immunizations Tetanus Immunization: Unknown - Past Medical History & Family History Past Medical History?: Yes - Past Social History Smoking Status: Former Smoker - CARDIAC Hx Atrial Fibrillation: Yes Hx Cardia Arrhythmia: Yes Hx Congestive Heart Failure: Yes Hx Hypercholesterolemia: Yes Hx Hypertension: Yes Hx Mitral Valve Prolapse: No Hx Pacemaker: No Hx Peripheral Edema: Yes - PULMONARY Hx Asthma: No Hx Bronchitis: No Hx Chronic Obstructive Pulmonary Disease (COPD): Yes Hx Emphysema: No Hx Pneumonia: Yes Hx Pulmonary Embolism: No Hx Sleep Apnea: No - NEUROLOGICAL Hx Alzheimer's Disease: No Hx Dementia: No Hx Migraine: No Hx Multiple Sclerosis: No Hx Parkinson's Disease: No Hx Seizures: No Hx Transient Ischemic Attacks (TIA): No - HEENT Hx HEENT Problems: Yes - RENAL Hx Chronic Kidney Disease: No Hx Kidney Stones: No - ENDOCRINE/METABOLIC Hx Hyperthyroidism: No Hx Hypothyroidism: No - HEMATOLOGICAL/ONCOLOGICAL Hx Anemia: No Hx Human Immunodeficiency Virus (HIV): No Hx Sickle Cell Disease: No - INTEGUMENTARY Hx Dermatological Problems: No - MUSCULOSKELETAL/RHEUMATOLOGICAL Hx Arthritis: Yes Hx Fractures: No Hx Osteoporosis: No Hx Rheumatoid Arthritis: No - GASTROINTESTINAL Hx Crohn's Disease: No Hx Diverticulitis: No Hx Gall Bladder Disease: No Hx Gastritis: No Hx Pancreatitis: No - GENITOURINARY/GYNECOLOGICAL Hx Sexually Transmitted Disorders: No - PSYCHIATRIC Hx Anxiety: No Hx Bipolar Disorder: No Hx Depression: No Hx Paranoia: No Hx Post Traumatic Stress Disorder: No Hx Schizophrenia: No - SURGICAL HISTORY Hx Appendectomy: No Hx Carotid Endarterectomy: No Hx Cholecystectomy: No Hx Coronary Artery Bypass Graft: Yes (5x) Hx Coronary Stent: Yes Hx Tonsillectomy: No - ANESTHESIA Hx Anesthesia: Yes Hx Anesthesia Reactions: No Hx Malignant Hyperthermia: No Meds Allergies/Adverse Reactions: Allergies Allergy/AdvReac Type Severity Reaction Status Date / Time No Known Allergies Allergy Verified 10/21/18 11:42 - Medications Medications: Current Medications Albuterol/Ipratropium (Duoneb 3 Mg/0.5 Mg (3 Ml) Ud) 3 ml INH RQID [facility] Last Admin: 10/22/18 19:10 Dose: 3 ml Amlodipine Besylate (Norvasc) 10 mg PO DAILY [facility] Last Admin: 10/22/18 08:25 Dose: 10 mg Dextrose (Dextrose 50% Inj) 0 ml IV STAT PRN; Protocol PRN Reason: Hypoglycemia Protocol Dextrose (Glutose 15) 0 gm PO ONCE PRN; Protocol PRN Reason: Hypoglycemia Protocol Furosemide (Lasix) 40 mg IV Q12 [facility] Last Admin: 10/22/18 08:25 Dose: 40 mg Glucagon (Glucagen Diagnostic Kit) 0 mg IM STAT PRN; Protocol PRN Reason: Hypoglycemia Protocol Insulin Human NPH (Humulin N) 15 units SC BID [facility] Last Admin: 10/22/18 17:04 Dose: 15 units Insulin Human Regular (Humulin R) 0 units SC ACHS [facility]; Protocol Last Admin: 10/22/18 17:05 Dose: 4 u Rivaroxaban (Xarelto) 15 mg PO QD5 [facility]; Protocol Last Admin: 10/22/18 17:06 Dose: 15 mg Spironolactone (Aldactone) 50 mg PO BID [facility] Last Admin: 10/22/18 17:03 Dose: 50 mg Zolpidem Tartrate (Ambien) 10 mg PO HS [facility] Last Admin: 10/21/18 21:29 Dose: 10 mg Physical Exam - Constitutional Appears: Well, Non-toxic, No Acute Distress - Extremities Exam Additional comments: LE focused exam: Vasc: DP/PT pulses non-palpable b/l. Skin temperature warm to warm from proximal to distal. CFT > 3 seconds to all digits. Minimal edema noted to b/l hallux Neuro: Epicritic and protective sensation grossly diminished b/l Derm: Right hallux - medial aspect of hallux shows macerated tissue with multiple small eschars present. No appreciable break in skin seen. No erythema, malodor or fluctuance noted Left hallux- 1 cm x 1 cm x 0.1 cm ulceration noted to medial aspect of hallux. Minimal periwound erythema. Minimal serous drainage. No malodor, no tracking, tunneling, undermining, other clinical signs of infection appreciated. MSK: Minimal pain on palpation of left hallucal ulcer site. No gross deformities appreciated - Neurological Exam Neurological exam: Alert, Oriented x3 - Psychiatric Exam Psychiatric exam: Normal Affect, Normal Mood Results - Vital Signs Recent Vital Signs: Last Vital Signs Temp 98.6 F 10/22/18 16:04 Pulse 107 H 10/22/18 16:04 Resp 18 10/22/18 16:04 BP 126/71 10/22/18 16:04 Pulse Ox 96 10/22/18 16:04 - Labs Result Diagrams: 10/22/18 04:30 10/22/18 04:30 Labs: Laboratory Results - last 24 hr 10/21/18 10/21/18 10/22/18 21:13 23:15 04:30 WBC 9.3 RBC 3.65 L Hgb 10.3 L Hct 31.9 L MCV 87.2 MCH 28.1 MCHC 32.3 L RDW 17.2 H Plt Count 386 MPV 8.2 Neut % (Auto) 77.6 H Lymph % (Auto) 11.5 L [place] % (Auto) 9.0 Eos % (Auto) 0.7 Baso % (Auto) 1.2 Neut # (Auto) 7.2 H Lymph # (Auto) 1.1 [place] # (Auto) 0.8 Eos # (Auto) 0.1 Baso # (Auto) 0.1 Sodium Potassium Chloride Carbon Dioxide Anion Gap BUN Creatinine Est GFR ( Amer) Est GFR (Non-Af Amer) POC Glucose (mg/dL) 261 H Random Glucose Calcium Urine Color Yellow Urine Clarity Clear Urine pH 5.0 Ur Specific [place] 1.011 Urine Protein Negative Urine Glucose (UA) Neg Urine Ketones Negative Urine Blood Negative Urine Nitrate Negative Urine Bilirubin Negative Urine Urobilinogen 0.2-1.0 Ur Leukocyte Esterase Trace Urine RBC (Auto) 3 Urine Microscopic WBC 2 Ur Squamous Epith Cells 1 Urine Bacteria Rare Hyaline Casts 11-20 H 10/22/18 10/22/18 10/22/18 04:30 06:02 11:00 WBC RBC Hgb Hct MCV MCH MCHC RDW Plt Count MPV Neut % (Auto) Lymph % (Auto) [place] % (Auto) Eos % (Auto) Baso % (Auto) Neut # (Auto) Lymph # (Auto) [place] # (Auto) Eos # (Auto) Baso # (Auto) Sodium 138 Potassium 3.8 Chloride 102 Carbon Dioxide 26 Anion Gap 14 BUN 47 H Creatinine 1.7 H Est GFR ( Amer) 47 Est GFR (Non-Af Amer) 39 POC Glucose (mg/dL) 204 H 344 H Random Glucose 179 H Calcium 9.4 Urine Color Urine Clarity Urine pH Ur Specific [place] Urine Protein Urine Glucose (UA) Urine Ketones Urine Blood Urine Nitrate Urine Bilirubin Urine Urobilinogen Ur Leukocyte Esterase Urine RBC (Auto) Urine Microscopic WBC Ur Squamous Epith Cells Urine Bacteria Hyaline Casts 10/22/18 16:36 WBC RBC Hgb Hct MCV MCH MCHC RDW Plt Count MPV Neut % (Auto) Lymph % (Auto) [place] % (Auto) Eos % (Auto) Baso % (Auto) Neut # (Auto) Lymph # (Auto) [place] # (Auto) Eos # (Auto) Baso # (Auto) Sodium Potassium Chloride Carbon Dioxide Anion Gap BUN Creatinine Est GFR ( Amer) Est GFR (Non-Af Amer) POC Glucose (mg/dL) 252 H Random Glucose Calcium Urine Color Urine Clarity Urine pH Ur Specific [place] Urine Protein Urine Glucose (UA) Urine Ketones Urine Blood Urine Nitrate Urine Bilirubin Urine Urobilinogen Ur Leukocyte Esterase Urine RBC (Auto) Urine Microscopic WBC Ur Squamous Epith Cells Urine Bacteria Hyaline Casts Assessment & Plan - Assessment and Plan (Free Text) Assessment: 78M seen for b/l hallucal diabetic foot wounds Plan: Patient seen and evaluated Plan discussed with Dr. Brown Afebrile, absent leukocytosis F/u ESR Infectious Disease Consult placed Vascular consult placed Right hallux left open to air Left hallux dressed with DSD Silvadene ordered for tomorrow's dressing change No plan for surgical intervention at this time Podiatry will continue to follow while patient in house - Date & Time Date: 10/22/18 Time: 20:02
--- NOTE | 2018-10-22 22:08 | CP.PCM.PN ---
Subjective - Date & Time of Evaluation Date of Evaluation: 10/22/18 Time of Evaluation: 22:05 - Subjective Subjective: I D NOTE INITIAL ORDERS GIVEN ANTIBIOTICS INITIATED Objective - Vital Signs/Intake and Output Vital Signs (last 24 hours): Temp Pulse Resp BP Pulse Ox 98.0 F 67 20 136/77 96 10/22/18 20:33 10/22/18 20:33 10/22/18 20:33 10/22/18 21:37 10/22/18 20:33 Intake and Output: 10/22/18 10/23/18 18:59 06:59 Intake Total 860 Balance 860 - Medications Medications: Current Medications Albuterol/Ipratropium (Duoneb 3 Mg/0.5 Mg (3 Ml) Ud) 3 ml INH RQID [facility] Last Admin: 10/22/18 19:10 Dose: 3 ml Amlodipine Besylate (Norvasc) 10 mg PO DAILY [facility] Last Admin: 10/22/18 08:25 Dose: 10 mg Dextrose (Dextrose 50% Inj) 0 ml IV STAT PRN; Protocol PRN Reason: Hypoglycemia Protocol Dextrose (Glutose 15) 0 gm PO ONCE PRN; Protocol PRN Reason: Hypoglycemia Protocol Furosemide (Lasix) 40 mg IV Q12 [facility] Last Admin: 10/22/18 21:37 Dose: 40 mg Glucagon (Glucagen Diagnostic Kit) 0 mg IM STAT PRN; Protocol PRN Reason: Hypoglycemia Protocol Clindamycin Phosphate 300 mg/ (Sodium Chloride) 52 mls @ 52 mls/hr IVPB Q12 [facility]; Protocol Meropenem 500 mg/ Sodium (Chloride) 100 mls @ 100 mls/hr IVPB Q12 [facility]; Protocol Insulin Human NPH (Humulin N) 15 units SC BID [facility] Last Admin: 10/22/18 17:04 Dose: 15 units Insulin Human Regular (Humulin R) 0 units SC ACHS [facility]; Protocol Last Admin: 10/22/18 17:05 Dose: 4 u Rivaroxaban (Xarelto) 15 mg PO QD5 [facility]; Protocol Last Admin: 10/22/18 17:06 Dose: 15 mg Silver Sulfadiazine (Silvadene 1% 20 Gm) 1 ea TOP DAILY [facility] Spironolactone (Aldactone) 50 mg PO BID [facility] Last Admin: 10/22/18 17:03 Dose: 50 mg Zolpidem Tartrate (Ambien) 10 mg PO HS [facility] Last Admin: 10/21/18 21:29 Dose: 10 mg - Labs Labs: 10/22/18 04:30 10/22/18 04:30 PT 14.1 Seconds (9.8-13.1) H 10/21/18 12:16 INR 1.2 10/21/18 12:16 APTT 31.7 Seconds (25.6-37.1) 10/21/18 12:16
[2018-10-23 06:06] LABS: BASO # 0.1 K/uL (0.0-0.2); BASO % 0.8 % (0.0-2.0); EOS # 0.1 K/uL (0.0-0.7); EOS % 0.9 % (0.0-4.0); HEMOGLOBIN 10.4 g/dL (12.0-18.0); LYMPH # 0.9 K/uL (1.0-4.3); LYMPH % 8.3 % (20.0-40.0); MEAN CELL VOLUME 86.6 fl (80.0-94.0); MEAN CORPUSCULAR HEMOGLOBIN 28.6 pg (27.0-31.0); MEAN CORPUSCULAR HGB CONC 33.1 g/dL (33.0-37.0); MEAN PLATELET VOLUME 8.6 fl (7.2-11.7); MONO % 9.7 % (0.0-10.0); NEUT # 8.5 K/uL (1.8-7.0); NEUT % 80.3 % (50.0-75.0); NRBC % 0.2 % (0.0-0.0); RBC 3.63 Mil/uL (4.40-5.90); RED CELL DISTRIBUTION WIDTH 17.4 % (11.5-14.5); WHITE BLOOD COUNT 10.5 K/uL (4.8-10.8)
[2018-10-23 06:29] LABS: ALB/GLOB RATIO 1.1 (1.0-2.1); ALBUMIN 3.6 g/dL (3.5-5.0); CALCIUM 9.3 mg/dL (8.4-10.2)
--- NOTE | 2018-10-23 07:39 | CP.PCM.PN ---
Subjective - Date & Time of Evaluation Date of Evaluation: 10/23/18 Time of Evaluation: 07:36 - Subjective Subjective: Podiatry progress note - Dr. Brown 78M seen and evaluated at bedside this AM for left hallux ulceration. Denies pain to the area. States he had bad chest pain this morning along with shortness of breath. Denies n/v/f/c today and has no other acute complaints. Objective - Vital Signs/Intake and Output Vital Signs (last 24 hours): Temp Pulse Resp BP Pulse Ox 97.4 F L 93 H 20 121/83 99 10/23/18 05:10 10/23/18 05:10 10/23/18 05:10 10/23/18 05:10 10/23/18 05:10 - Medications Medications: Current Medications Albuterol/Ipratropium (Duoneb 3 Mg/0.5 Mg (3 Ml) Ud) 3 ml INH RQID [facility] Last Admin: 10/22/18 19:10 Dose: 3 ml Amlodipine Besylate (Norvasc) 10 mg PO DAILY [facility] Last Admin: 10/22/18 08:25 Dose: 10 mg Dextrose (Dextrose 50% Inj) 0 ml IV STAT PRN; Protocol PRN Reason: Hypoglycemia Protocol Dextrose (Glutose 15) 0 gm PO ONCE PRN; Protocol PRN Reason: Hypoglycemia Protocol Furosemide (Lasix) 40 mg IV Q12 [facility] Last Admin: 10/22/18 21:37 Dose: 40 mg Glucagon (Glucagen Diagnostic Kit) 0 mg IM STAT PRN; Protocol PRN Reason: Hypoglycemia Protocol Clindamycin in NS (Clindamycin 300 Mg/50 Ml-Ns) 300 mg in 50 mls @ 50 mls/hr IVPB Q12 [facility]; Protocol Meropenem 500 mg/ Sodium (Chloride) 100 mls @ 100 mls/hr IVPB Q12 [facility]; Protocol Insulin Human NPH (Humulin N) 15 units SC BID [facility] Last Admin: 10/22/18 17:04 Dose: 15 units Insulin Human Regular (Humulin R) 0 units SC ACHS [facility]; Protocol Last Admin: 10/22/18 23:05 Dose: Not Given Rivaroxaban (Xarelto) 15 mg PO QD5 [facility]; Protocol Last Admin: 10/22/18 17:06 Dose: 15 mg Silver Sulfadiazine (Silvadene 1% 20 Gm) 1 ea TOP DAILY [facility] Spironolactone (Aldactone) 50 mg PO BID [facility] Last Admin: 10/22/18 17:03 Dose: 50 mg Zolpidem Tartrate (Ambien) 10 mg PO HS [facility] Last Admin: 10/22/18 23:02 Dose: 10 mg - Labs Labs: 10/23/18 04:20 10/23/18 04:20 PT 14.1 Seconds (9.8-13.1) H 10/21/18 12:16 INR 1.2 10/21/18 12:16 APTT 31.7 Seconds (25.6-37.1) 10/21/18 12:16 - Constitutional Appears: Non-toxic - Head Exam Head Exam: ATRAUMATIC - Extremities Exam Additional comments: LE focused exam: Vasc: DP/PT pulses non-palpable b/l. Skin temperature warm to warm from proximal to distal. CFT > 3 seconds to all digits. Minimal edema noted to b/l hallux Neuro: Epicritic and protective sensation grossly diminished b/l Derm: Right hallux - medial aspect of hallux shows macerated tissue with multiple small eschars present. No appreciable break in skin seen. No erythema, malodor or fluctuance noted Left hallux- 1 cm x 1 cm x 0.1 cm ulceration noted to medial aspect of hallux. Minimal periwound erythema. Minimal serous drainage. No malodor, no tracking, tunneling, undermining, other clinical signs of infection appreciated. MSK: Minimal pain on palpation of left hallucal ulcer site. No gross deformities appreciated - Neurological Exam Neurological Exam: Alert, Awake, Oriented x3 - Psychiatric Exam Psychiatric exam: Normal Affect, Normal Mood Assessment and Plan - Assessment and Plan (Free Text) Assessment: 78M with b/l hallucal diabetic foot wounds Plan: Patient seen and evaluated Plan discussed with Dr. Brown Afebrile, absent leukocytosis ESR - 37 Infectious Disease Consult placed Vascular consult placed Right hallux left open to air Left hallux cleansed with sterile saline and dressing with silvadene and dry sterile dressing No plan for surgical intervention at this time Will continue to follow Upon d/c can f/u with Dr. Brown in private clinic as outpatient
[2018-10-23 07:53] VITALS: RESP 18
[2018-10-23] MEDS: Albuterol-Ipratrop 3 mg / 0.5 (3 ml) UD INH SCH ×2 (08:07→15:37)
--- NOTE | 2018-10-23 08:30 | CP.PCM.CON ---
History of Present Illness - History of Present Illness History of Present Illness: Evaluation for left hallux ulceration and PVD HPI:: Review of Systems - Review of Systems Systems not reviewed;Unavailable: Acuity of Condition - Constitutional Constitutional: As Per HPI - EENT Eyes: As Per HPI Ears: As Per HPI Nose/Mouth/Throat: As Per HPI - Cardiovascular Cardiovascular: As Per HPI - Respiratory Respiratory: As Per HPI - Gastrointestinal Gastrointestinal: As Per HPI - Genitourinary Genitourinary: As Per HPI - Reproductive: Male Reproductive:Male: As Per HPI - Musculoskeletal Musculoskeletal: As Per HPI - Integumentary Integumentary: As Per HPI - Neurological Neurological: As Per HPI - Psychiatric Psychiatric: As Per HPI - Endocrine Endocrine: As Per HPI - Hematologic/Lymphatic Hematologic: As Per HPI Past Patient History - Tetanus Immunizations Tetanus Immunization: Unknown - Past Medical History & Family History Past Medical History?: Yes - Past Social History Smoking Status: Former Smoker - CARDIAC Hx Atrial Fibrillation: Yes Hx Cardia Arrhythmia: Yes Hx Congestive Heart Failure: Yes Hx Hypercholesterolemia: Yes Hx Hypertension: Yes Hx Mitral Valve Prolapse: No Hx Pacemaker: No Hx Peripheral Edema: Yes - PULMONARY Hx Asthma: No Hx Bronchitis: No Hx Chronic Obstructive Pulmonary Disease (COPD): Yes Hx Emphysema: No Hx Pneumonia: Yes Hx Pulmonary Embolism: No Hx Sleep Apnea: No - NEUROLOGICAL Hx Alzheimer's Disease: No Hx Dementia: No Hx Migraine: No Hx Multiple Sclerosis: No Hx Parkinson's Disease: No Hx Seizures: No Hx Transient Ischemic Attacks (TIA): No - HEENT Hx HEENT Problems: Yes - RENAL Hx Chronic Kidney Disease: No Hx Kidney Stones: No - ENDOCRINE/METABOLIC Hx Hyperthyroidism: No Hx Hypothyroidism: No - HEMATOLOGICAL/ONCOLOGICAL Hx Anemia: No Hx Human Immunodeficiency Virus (HIV): No Hx Sickle Cell Disease: No - INTEGUMENTARY Hx Dermatological Problems: No - MUSCULOSKELETAL/RHEUMATOLOGICAL Hx Arthritis: Yes Hx Fractures: No Hx Osteoporosis: No Hx Rheumatoid Arthritis: No - GASTROINTESTINAL Hx Crohn's Disease: No Hx Diverticulitis: No Hx Gall Bladder Disease: No Hx Gastritis: No Hx Pancreatitis: No - GENITOURINARY/GYNECOLOGICAL Hx Sexually Transmitted Disorders: No - PSYCHIATRIC Hx Anxiety: No Hx Bipolar Disorder: No Hx Depression: No Hx Paranoia: No Hx Post Traumatic Stress Disorder: No Hx Schizophrenia: No - SURGICAL HISTORY Hx Appendectomy: No Hx Carotid Endarterectomy: No Hx Cholecystectomy: No Hx Coronary Artery Bypass Graft: Yes (5x) Hx Coronary Stent: Yes Hx Tonsillectomy: No - ANESTHESIA Hx Anesthesia: Yes Hx Anesthesia Reactions: No Hx Malignant Hyperthermia: No Meds Allergies/Adverse Reactions: Allergies Allergy/AdvReac Type Severity Reaction Status Date / Time No Known Allergies Allergy Verified 10/21/18 11:42 - Medications Medications: Current Medications Albuterol/Ipratropium (Duoneb 3 Mg/0.5 Mg (3 Ml) Ud) 3 ml INH RQID JOON Last Admin: 10/23/18 08:07 Dose: 3 ml Amlodipine Besylate (Norvasc) 10 mg PO DAILY [facility] Last Admin: 10/22/18 08:25 Dose: 10 mg Dextrose (Dextrose 50% Inj) 0 ml IV STAT PRN; Protocol PRN Reason: Hypoglycemia Protocol Dextrose (Glutose 15) 0 gm PO ONCE PRN; Protocol PRN Reason: Hypoglycemia Protocol Furosemide (Lasix) 40 mg IV Q12 [facility]ON Last Admin: 10/22/18 21:37 Dose: 40 mg Glucagon (Glucagen Diagnostic Kit) 0 mg IM STAT PRN; Protocol PRN Reason: Hypoglycemia Protocol Clindamycin in NS (Clindamycin 300 Mg/50 Ml-Ns) 300 mg in 50 mls @ 50 mls/hr IVPB Q12 [facility]; Protocol Meropenem 500 mg/ Sodium (Chloride) 100 mls @ 100 mls/hr IVPB Q12 [facility]; Protocol Insulin Human NPH (Humulin N) 15 units SC BID [facility] Last Admin: 10/22/18 17:04 Dose: 15 units Insulin Human Regular (Humulin R) 0 units SC ACHS [facility]; Protocol Last Admin: 10/22/18 23:05 Dose: Not Given Rivaroxaban (Xarelto) 15 mg PO QD5 [facility]; Protocol Last Admin: 10/22/18 17:06 Dose: 15 mg Silver Sulfadiazine (Silvadene 1% 20 Gm) 1 ea TOP DAILY [facility] Spironolactone (Aldactone) 50 mg PO BID [facility] Last Admin: 10/22/18 17:03 Dose: 50 mg Zolpidem Tartrate (Ambien) 10 mg PO HS [facility] Last Admin: 10/22/18 23:02 Dose: 10 mg Physical Exam - Constitutional Appears: Well - Head Exam Head Exam: ATRAUMATIC, NORMAL INSPECTION, NORMOCEPHALIC - Eye Exam Eye Exam: EOMI, Normal appearance, PERRL Pupil Exam: NORMAL ACCOMODATION, PERRL - ENT Exam ENT Exam: Mucous Membranes Moist, Normal Exam - Neck Exam Neck exam: Positive for: Normal Inspection - Respiratory Exam Respiratory Exam: Clear to Auscultation Bilateral, NORMAL BREATHING PATTERN - Cardiovascular Exam Cardiovascular Exam: REGULAR RHYTHM - GI/Abdominal Exam GI & Abdominal Exam: Normal Bowel Sounds, Soft. absent: Tenderness - Extremities Exam Extremities exam: Positive for: normal inspection - Back Exam Back exam: NORMAL INSPECTION - Neurological Exam Neurological exam: Alert, CN II-XII Intact, Normal Gait, Oriented x3, Reflexes Normal - Psychiatric Exam Psychiatric exam: Normal Affect, Normal Mood - Skin Skin Exam: Dry, Intact, Normal Color, Warm Results - Vital Signs Recent Vital Signs: Last Vital Signs Temp 97.9 F 10/23/18 07:52 Pulse 96 H 10/23/18 07:52 Resp 18 10/23/18 07:52 BP 150/69 10/23/18 07:52 Pulse Ox 93 L 10/23/18 07:52 - Labs Result Diagrams: 10/23/18 04:20 10/23/18 04:20 Labs: Laboratory Results - last 24 hr 10/22/18 10/22/18 10/22/18 11:00 16:36 20:16 WBC RBC Hgb Hct MCV MCH MCHC RDW Plt Count MPV Neut % (Auto) Lymph % (Auto) Dickson % (Auto) Eos % (Auto) Baso % (Auto) Neut # (Auto) Lymph # (Auto) Dickson # (Auto) Eos # (Auto) Baso # (Auto) ESR 37 H Sodium Potassium Chloride Carbon Dioxide Anion Gap BUN Creatinine Est GFR ( Amer) Est GFR (Non-Af Amer) POC Glucose (mg/dL) 344 H 252 H Random Glucose Calcium Magnesium Total Bilirubin AST ALT Alkaline Phosphatase NT-Pro-B Natriuret Pep Total Protein Albumin Globulin Albumin/Globulin Ratio 10/22/18 10/23/18 10/23/18 20:49 04:20 04:20 WBC 10.5 RBC 3.63 L Hgb 10.4 L Hct 31.4 L MCV 86.6 MCH 28.6 MCHC 33.1 RDW 17.4 H Plt Count 403 H MPV 8.6 Neut % (Auto) 80.3 H Lymph % (Auto) 8.3 L Dickson % (Auto) 9.7 Eos % (Auto) 0.9 Baso % (Auto) 0.8 Neut # (Auto) 8.5 H Lymph # (Auto) 0.9 L Dickson # (Auto) 1.0 H Eos # (Auto) 0.1 Baso # (Auto) 0.1 ESR Sodium 140 Potassium 4.2 Chloride 102 Carbon Dioxide 28 Anion Gap 14 BUN 47 H Creatinine 1.7 H Est GFR ( Amer) 47 Est GFR (Non-Af Amer) 39 POC Glucose (mg/dL) 227 H Random Glucose 183 H Calcium 9.3 Magnesium 1.9 Total Bilirubin 1.0 AST 43 ALT 35 Alkaline Phosphatase 96 NT-Pro-B Natriuret Pep 3470 H Total Protein 7.1 Albumin 3.6 Globulin 3.4 Albumin/Globulin Ratio 1.1 10/23/18 05:04 WBC RBC Hgb Hct MCV MCH MCHC RDW Plt Count MPV Neut % (Auto) Lymph % (Auto) Dickson % (Auto) Eos % (Auto) Baso % (Auto) Neut # (Auto) Lymph # (Auto) Dickson # (Auto) Eos # (Auto) Baso # (Auto) ESR Sodium Potassium Chloride Carbon Dioxide Anion Gap BUN Creatinine Est GFR ( Amer) Est GFR (Non-Af Amer) POC Glucose (mg/dL) 210 H Random Glucose Calcium Magnesium Total Bilirubin AST ALT Alkaline Phosphatase NT-Pro-B Natriuret Pep Total Protein Albumin Globulin Albumin/Globulin Ratio Assessment & Plan (1) Peripheral arterial disease Assessment and Plan: CTA Status: Chronic Priority: High (2) Leg ulcer, left Status: Acute (3) CHF (congestive heart failure) Status: Acute Priority: High (4) CAD (coronary artery disease) Status: Chronic Priority: High (5) DM2 (diabetes mellitus, type 2) Status: Chronic Priority: High (6) HTN (hypertension) Status: Chronic Priority: High
[2018-10-23] MEDS ORDERED: Sodium Chloride 0.9% 1,000 ML IV SCH (08:45)
[2018-10-23] MEDS ORDERED: Silver Sulfadiazine 1% Cream (20 gm) TOP SCH (09:00)
[2018-10-23] MEDS ORDERED: Meropenem 500 MG in Sodium Chloride 0.9% 100 ML IVPB SCH (09:00)
[2018-10-23] MEDS ORDERED: Clindamycin in NS 300 MG/50 ML BAG IVPB SCH (09:00)
--- NOTE | 2018-10-23 09:02 | CP.PCM.PN ---
Subjective - Date & Time of Evaluation Date of Evaluation: 10/23/18 Time of Evaluation: 08:46 - Subjective Subjective: Seen on morning rounds in telemetry. Seated on EOB, appears comfortable. Relates feeling improved from time of admission. No weight recorded yesterday, weight increased day after admission. Seen by ID and podiatry yesterday because of diabetic foot ulcer. Has had CTA of LEs about 2.5 years ago which showed diffuse severe disease of LE . Dependant edema has decreased in both LEs. Surgical dressing on left foot. Nail beds are dusky, SpO2 89% on room air. Speech is fluent and memory is fair. Neck is supple and trachea midline. No dullness on chest percussion. Breath sounds are diminished equally in both lungs. Few scattered sonorous rhonchi and medium rales in lower lobes. No audible wheezes or bronchial breath sounds. Heart sounds are distant, irregular. Exacerbation of HFrLVEF. Underlying COPD, quiescent presently. PVD with diabetic foot ulcer, prior amputation L toe. Discussed with Cardiology. Current medical regimen will continue. ID and Podiatry following. Objective - Vital Signs/Intake and Output Vital Signs (last 24 hours): Temp Pulse Resp BP Pulse Ox 97.9 F 96 H 18 150/69 93 L 10/23/18 07:52 10/23/18 07:52 10/23/18 07:52 10/23/18 07:52 10/23/18 07:52 Intake and Output: 10/22/18 10/23/18 23:59 11:59 Intake Total 860 Balance 860 - Medications Medications: Current Medications Albuterol/Ipratropium (Duoneb 3 Mg/0.5 Mg (3 Ml) Ud) 3 ml INH RQID JOON Last Admin: 10/23/18 08:07 Dose: 3 ml Amlodipine Besylate (Norvasc) 10 mg PO DAILY [facility] Last Admin: 10/22/18 08:25 Dose: 10 mg Dextrose (Dextrose 50% Inj) 0 ml IV STAT PRN; Protocol PRN Reason: Hypoglycemia Protocol Dextrose (Glutose 15) 0 gm PO ONCE PRN; Protocol PRN Reason: Hypoglycemia Protocol Furosemide (Lasix) 40 mg IV Q12 [facility] Last Admin: 10/22/18 21:37 Dose: 40 mg Glucagon (Glucagen Diagnostic Kit) 0 mg IM STAT PRN; Protocol PRN Reason: Hypoglycemia Protocol Clindamycin in NS (Clindamycin 300 Mg/50 Ml-Ns) 300 mg in 50 mls @ 50 mls/hr IVPB Q12 [facility]; Protocol Meropenem 500 mg/ Sodium (Chloride) 100 mls @ 100 mls/hr IVPB Q12 [facility]; Protocol Sodium Chloride (Sodium Chloride 0.9%) 1,000 mls @ 70 mls/hr IV .[id number] [facility] Stop: 10/24/18 08:44 Insulin Human NPH (Humulin N) 15 units SC BID [facility] Last Admin: 10/22/18 17:04 Dose: 15 units Insulin Human Regular (Humulin R) 0 units SC ACHS [facility]; Protocol Last Admin: 10/22/18 23:05 Dose: Not Given Rivaroxaban (Xarelto) 15 mg PO QD5 [facility]; Protocol Last Admin: 10/22/18 17:06 Dose: 15 mg Silver Sulfadiazine (Silvadene 1% 20 Gm) 1 ea TOP DAILY [facility] Spironolactone (Aldactone) 50 mg PO BID [facility] Last Admin: 10/22/18 17:03 Dose: 50 mg Zolpidem Tartrate (Ambien) 10 mg PO HS [facility] Last Admin: 10/22/18 23:02 Dose: 10 mg - Labs Labs: 10/23/18 04:20 10/23/18 04:20 PT 14.1 Seconds (9.8-13.1) H 10/21/18 12:16 INR 1.2 10/21/18 12:16 APTT 31.7 Seconds (25.6-37.1) 10/21/18 12:16 Assessment and Plan (1) CHF exacerbation Status: Acute (2) COPD (chronic obstructive pulmonary disease) Status: Chronic (3) DM2 (diabetes mellitus, type 2) Status: Chronic (4) Peripheral arterial disease Status: Chronic
[2018-10-23] MEDS: Insulin NPH Human 100 Units/ml Inj SC SCH (09:09)
[2018-10-23] MEDS: Insulin Regular 100 units/ml SC SCH ×2 (09:10→12:00)
--- NOTE | 2018-10-23 09:47 | CP.PCM.PN ---
Subjective - Date & Time of Evaluation Date of Evaluation: 10/23/18 Time of Evaluation: 09:00 - Subjective Subjective: This 78-year-old man came to the emergency room profoundly short of breath and in florid congestive cardiac failure. He has a long medical history consisting of hypertension and diabetes that required coronary bypass graft surgery 12-13 years back followed by coronary stenting. He has had congestive cardiac failure for approximately 10 years and has had atrial fibrillation for at least 8-9 years. He was an ex-smoker with COPD and severe peripheral arterial disease that required amputation of second toe on left side in March 2016. A CT scan of the abdomen and lower extremities revealed evidence of calcific blood vessels from his aorta to his feet. The patient has had a TURP following which she developed urinary sepsis followed by septic shock requiring a brief. Of endotracheal intubation and ventilation. The patient had undergone workup in June of last year as part of his ev aluation for possible AICD implant. The patient has been extremely noncompliant as far as weighing himself regularly and avoiding salty food is concerned. He has had multiple hospitalizations with profound volume overload often having run out of his diuretics. The patient also has had a cerebrovascular insufficiency and had experienced amaurosis more than 15 years back. Physical examination shows an elderly man who is sitting up in the chair having diuresed profusely over last 48 hours with intravenous furosemide. He still has significant amount of pedal edema. His pedal pulses were not palpable. Telemetry revealed heart rate 9200 bpm irregularly irregular in atrial fibrillation. His blood pressure was 122/80 mmHg. His jugular venous pressure was mildly elevated. Extremities were warm and nailbeds are pink. There was no central or peripheral cyanosis. There was no clubbing. There was no lymphadenopathy. The apex was not palpable the first heart sound was muffled second heart sound was normal along apical systolic murmur of mitral regurgitation was audible. Air entry was reduced at both bases scattered rales were audible. His abdomen was soft liver and spleen were not palpable. Free fluid could be detected in the abdomen. His electrocardiogram showed atrial fibrillation with evidence of an old inferior wall myocardial infarction as well as Q waves in leads V5 and V6 suggestive of a lateral wall infarct as well. His chest x-ray showed mild cardiomegaly and pulmonary congestion. His lab data showed a BUN in mid 40s and creatinine of 1.7 mg percent. His GFR was 47 mL/min.(Review of his chart shows a GFR in this range for approximately a couple of years) his electrolytes were normal. His recent echocardiogram had shown a left ventricular ejection fraction in the range of 15-20% and a sestamibi nuclear stress test in mid June had shown evidence of old myocardial scars with no significant areas of potentially ischemic myocardium. 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 Severe mitral regurgitation with chronic atrial fibrillation. Stage II chronic kidney disease. Severe peripheral arterial disease with diffuse calcification of blood vessels. Status post amputation of left second toe. Hypertension diabetes mellitus and COPD due to chronic cigarette use with dyslipidemia. Poor compliance with medical management as far as salt restrict ion and regular weighing himself is concerned. Patient is being evaluated for possible revascularization of lower extremities. His lower extremities are profoundly hypoperfused. I have discussed his case with the vascular physician. Objective - Vital Signs/Intake and Output Vital Signs (last 24 hours): Temp Pulse Resp BP Pulse Ox 97.9 F 96 H 18 150/69 93 L 10/23/18 07:52 10/23/18 07:52 10/23/18 07:52 10/23/18 07:52 10/23/18 07:52 - Medications Medications: Current Medications Albuterol/Ipratropium (Duoneb 3 Mg/0.5 Mg (3 Ml) Ud) 3 ml INH RQID [facility]ON Last Admin: 10/23/18 08:07 Dose: 3 ml Dextrose (Dextrose 50% Inj) 0 ml IV STAT PRN; Protocol PRN Reason: Hypoglycemia Protocol Dextrose (Glutose 15) 0 gm PO ONCE PRN; Protocol PRN Reason: Hypoglycemia Protocol Furosemide (Lasix) 40 mg IV Q12 [facility] Last Admin: 10/22/18 21:37 Dose: 40 mg Glucagon (Glucagen Diagnostic Kit) 0 mg IM STAT PRN; Protocol PRN Reason: Hypoglycemia Protocol Clindamycin in NS (Clindamycin 300 Mg/50 Ml-Ns) 300 mg in 50 mls @ 50 mls/hr IVPB Q12 [facility]; Protocol Meropenem 500 mg/ Sodium (Chloride) 100 mls @ 100 mls/hr IVPB Q12 [facility]; Protocol Sodium Chloride (Sodium Chloride 0.9%) 1,000 mls @ 70 mls/hr IV .[id number] [facility] Stop: 10/24/18 08:44 Insulin Human NPH (Humulin N) 15 units SC BID [facility] Last Admin: 10/23/18 09:09 Dose: 15 units Insulin Human Regular (Humulin R) 0 units SC ACHS [facility]; Protocol Last Admin: 10/23/18 09:10 Dose: 3 u Losartan Potassium (Cozaar) 25 mg PO DAILY [facility] Metoprolol Tartrate (Lopressor) 25 mg PO DAILY [facility] Rivaroxaban (Xarelto) 15 mg PO QD5 [facility]; Protocol Last Admin: 10/22/18 17:06 Dose: 15 mg Silver Sulfadiazine (Silvadene 1% 20 Gm) 1 ea TOP DAILY [facility] Spironolactone (Aldactone) 50 mg PO BID [facility] Last Admin: 10/23/18 09:07 Dose: 50 mg Zolpidem Tartrate (Ambien) 10 mg PO HS [facility] Last Admin: 10/22/18 23:02 Dose: 10 mg - Labs Labs: 10/23/18 04:20 10/23/18 04:20 PT 14.1 Seconds (9.8-13.1) H 10/21/18 12:16 INR 1.2 10/21/18 12:16 APTT 31.7 Seconds (25.6-37.1) 10/21/18 12:16
[2018-10-23] MEDS ORDERED: Iodixanol 320 MG/ML 100 ML BOTTLE IV ONE (11:40)
[2018-10-23] MEDS ORDERED: Iodixanol 320 mg/ml 50 ml Sol IV ONE (11:40)
[2018-10-23] MEDS ORDERED: Sodium Chloride 0.9% 100 ML ONE (11:41)
[2018-10-23 11:44] VITALS: BP 130/70; PULSE 89; TEMP 98; O2SAT 97
--- NOTE | 2018-10-23 13:58 | CT ---
Date of service: 10/23/2018 PROCEDURE: CT Angiography Abdomen, Pelvis and Lower Extremity with Contrast HISTORY: PVD COMPARISON: None available. TECHNIQUE: Technique: CT angiography of the pelvis and bilateral lower extremities performed in the arterial phase of enhancement. Coronal and sagittal reformats, and well as rotating MIP images of the vessels generated at the workstation. Intravenous contrast dose: 145 cubic centimeters Visipaque 320 Radiation dose: Total exam DLP = 1121.71 mGy-cm. This CT exam was performed using one or more of the following dose reduction techniques: Automated exposure control, adjustment of the mA and/or kV according to patient size, and/or use of iterative reconstruction technique. FINDINGS: CT ANGIOGRAPHY: ABDOMINAL AORTA:: MAJOR AORTIC BRANCHES: Celiac [place]: None occluded study. Superior mesenteric artery: Unremarkable. Inferior mesenteric artery: Unremarkable. Renal arteries: Unremarkable. PELVIC ARTERIES: Right Common Iliac: Moderate to severe stenosis of proximal common iliac artery. Right External Iliac: Moderate stenosis of the proximal external iliac artery. Right Internal Iliac: Unremarkable. Left Common Iliac: Unremarkable. Left External Iliac: Stenosis of the distal external iliac artery. Left Internal Iliac: Unremarkable. RIGHT LOWER EXTREMITY ARTERIES: Right Common Femoral: The calcific plaque but no significant stenosis. Right Superficial Femoral: There is diffuse moderate calcific in the SFA and multiple areas of moderate to severe stenosis throughout the SFA. Right Profunda Femoris: Unremarkable. Right Popliteal:Mild stenosis. Right Anterior Tibial: Limited evaluation secondary to poor opacification. Possible moderate stenosis in the proximal segment. Right Tibioperoneal Trunk: Unremarkable. Right Posterior Tibial: The opacified which limits evaluation. Believed to be patent. Right Peroneal: Opacified which limits evaluation. There are believed to be multiple areas of moderate stenosis throughout the peroneal artery. Right dorsalis pedis : Unremarkable. LEFT LOWER EXTREMITY ARTERIES: Left Common Femoral: There is moderate calcific plaque but no significant stenosis. Left Superficial Femoral: There is moderate calcific plaque throughout the SFA with multiple areas of [id number] stenosis in the proximal mid segments. Left Profunda Femoris: Unremarkable. Left Popliteal: Stenosis. Left Anterior Tibial: Limited evaluation secondary to poor opacification. Possible severe stenosis in the proximal segment. Left Tibioperoneal Trunk: Unremarkable. Left Posterior Tibial: Unremarkable. Left Peroneal: Evaluation secondary to poor opacification. Possible mild to severe stenosis of the proximal mid segments. Left Dorsalis pedis: Unremarkable. NON-ANGIOGRAPHIC ASPECT OF THE EXAM: LOWER THORAX: Included on study. LIVER: Partially included. The visualized portions unremarkable. GALLBLADDER AND BILE DUCTS: Acted. Small gallstones. PANCREAS: Partially included. The visualized portion has no gross lesion or ductal dilatation. SPLEEN: Partially occluded. Visualized portion unremarkable. ADRENALS: Partially included. No mass. KIDNEYS AND URETERS: Right kidney is unremarkable. The left kidney is partially included. The visualized portions unremarkable. STOMACH AND BOWEL: Partially occluded. Limited evaluation without PO contrast. No obstruction. No gross mural thickening. APPENDIX: Normal appendix. PERITONEUM: Unremarkable. No free fluid. No free air. LYMPH NODES: Unremarkable. No enlarged lymph nodes. BLADDER: Unremarkable. REPRODUCTIVE: Unremarkable. BONES: No acute fracture. OTHER FINDINGS: None. IMPRESSION: CT ANGIOGRAM ABDOMEN/PELVIS: 1. The abdominal was partially included in the study. Visualized portion of the aorta has moderate calcific plaque with no stenosis. 2. There is moderate to severe stenosis of the proximal right common iliac artery. There also moderate calcific plaque throughout the common iliac artery. There is moderate stenosis of the proximal right external iliac artery. 3. The left common iliac artery is moderate calcified but is otherwise patent. There is moderate stenosis of the distal left external iliac artery. RIGHT LOWER EXTREMITY CT ANGIOGRAM: 1. Moderate calcific plaque in the common femoral artery which is otherwise patent. The profunda femoral artery is patent. 2. There is moderate calcific plaque throughout the SF There is multiple areas of mild to severe stenosis throughout the SFA. There is mild stenosis of popliteal artery. 3. Lesion of the tibial vessels is limited secondary to poor by ossific a gonzalez. The anterior tibial artery and post peroneal artery likely have severe stenosis in the proximal and mid segments. LEFT LOWER EXTREMITY CT ANGIOGRAM: 1. Moderate calcific plaque in the common femoral artery which is otherwise patent. The profunda femoral artery is patent. 2. There is moderate calcific plaque throughout the SFA. There is mild stenosis of the proximal SFA. There is mild stenosis of popliteal artery. 3. Lesion of the tibial vessels is limited secondary to poor by ossific a gonzalez. The anterior tibial artery and post peroneal artery likely have severe stenosis in the proximal and mid segments.
--- NOTE | 2018-10-23 14:16 | CP.PCM.DIS ---
Provider - Provider Date of Admission: 10/21/18 14:10 Attending physician: Alexei Trammell MD Consults: 10/21/18 14:12 Cardiology Consult Stat Comment: Consulting Provider: Dionisio Mata Consulting Physician: Dionisio Mata Reason for Consult: CHF Pulmonology Consult Stat Comment: Consulting Provider: Sekou Bone Consulting Physician: Sekou Bone Reason for Consult: CHF 10/22/18 12:03 Nursing Referral for Wound Care Routine Comment: Physician Instructions: Reason For Exam: left gonzalez skin tears 10/22/18 16:19 Podiatry Consult Routine Comment: Consulting Provider: Jay Brown Consulting Physician: Jay Brown Reason for Consult: please eval toe , recent debridement 10/22/18 19:48 Infectious Disease Consult Routine Comment: Consulting Provider: Nick Tian Consulting Physician: Nick Tian Reason for Consult: Diabetic ulcerations b/l feet 10/22/18 20:03 Vascular Surgery Routine Comment: Consulting Provider: Vega Calabrese Physician Instructions: Reason For Exam: diabetic foot ulcers b/l Time Spent in preparation of Discharge (in minutes): 35 Hospital Course - Lab Results Lab Results: Most Recent Lab Values WBC 10.5 K/uL (4.8-10.8) 10/23/18 04:20 RBC 3.63 Mil/uL (4.40-5.90) L 10/23/18 04:20 Hgb 10.4 g/dL (12.0-18.0) L 10/23/18 04:20 Hct 31.4 % (35.0-51.0) L 10/23/18 04:20 MCV 86.6 fl (80.0-94.0) 10/23/18 04:20 MCH 28.6 pg (27.0-31.0) 10/23/18 04:20 MCHC 33.1 g/dL (33.0-37.0) 10/23/18 04:20 RDW 17.4 % (11.5-14.5) H 10/23/18 04:20 Plt Count 403 K/uL (130-400) H 10/23/18 04:20 MPV 8.6 fl (7.2-11.7) 10/23/18 04:20 Neut % (Auto) 80.3 % (50.0-75.0) H 10/23/18 04:20 Lymph % (Auto) 8.3 % (20.0-40.0) L 10/23/18 04:20 Gaines % (Auto) 9.7 % (0.0-10.0) 10/23/18 04:20 Eos % (Auto) 0.9 % (0.0-4.0) 10/23/18 04:20 Baso % (Auto) 0.8 % (0.0-2.0) 10/23/18 04:20 Neut # (Auto) 8.5 K/uL (1.8-7.0) H 10/23/18 04:20 Lymph # (Auto) 0.9 K/uL (1.0-4.3) L 10/23/18 04:20 Gaines # (Auto) 1.0 K/uL (0.0-0.8) H 10/23/18 04:20 Eos # (Auto) 0.1 K/uL (0.0-0.7) 10/23/18 04:20 Baso # (Auto) 0.1 K/uL (0.0-0.2) 10/23/18 04:20 Neutrophils % (Manual) 82 % (42-75) H 10/21/18 12:16 Lymphocytes % (Manual) 10 % (20-50) L 10/21/18 12:16 Monocytes % (Manual) 5 % (0-10) 10/21/18 12:16 Basophils % (Manual) 1 % (0-2) 10/21/18 12:16 Metamyelocytes % 1 % (0-0) H 10/21/18 12:16 Myelocytes % 1 % (0-0) H 10/21/18 12:16 Platelet Estimate Normal (NORMAL) 10/21/18 12:16 Large Platelets Present 10/21/18 12:16 Giant Platelets Present 10/21/18 12:16 Hypochromasia (manual) Slight 10/21/18 12:16 Anisocytosis (manual) Slight 10/21/18 12:16 Ovalocytes Slight 10/21/18 12:16 ESR 37 mm/hr (0-20) H 10/22/18 20:16 PT 14.1 Seconds (9.8-13.1) H 10/21/18 12:16 INR 1.2 10/21/18 12:16 APTT 31.7 Seconds (25.6-37.1) 10/21/18 12:16 pCO2 34 mm/Hg (35-45) L 10/21/18 14:41 pO2 80 mm/Hg (80-100) 10/21/18 14:41 HCO3 23.4 mmol/L (21-28) 10/21/18 14:41 ABG pH 7.42 (7.35-7.45) 10/21/18 14:41 ABG Total CO2 23.1 mmol/L (22-28) 10/21/18 14:41 ABG O2 Saturation 99.5 % (95-98) H 10/21/18 14:41 ABG O2 Content 15.3 ML/dL (15-23) 10/21/18 14:41 ABG Base Excess -1.9 mmol/L (-2.0-3.0) 10/21/18 14:41 ABG Hemoglobin 11.4 g/dL (11.7-17.4) L 10/21/18 14:41 ABG Carboxyhemoglobin 2.4 % (0.5-1.5) H 10/21/18 14:41 POC ABG HHb (Measured) 0.5 % (0.0-5.0) 10/21/18 14:41 ABG Methemoglobin 2.0 % (0.0-3.0) 10/21/18 14:41 ABG O2 Capacity 15.4 mL/dL (16-24) L 10/21/18 14:41 Thor Test Yes 10/21/18 14:41 A-a O2 Difference 27.0 mm/Hg 10/21/18 14:41 Hgb O2 Saturation 95.1 % (95.0-98.0) 10/21/18 14:41 FiO2 21.0 % 10/21/18 14:41 Sodium 140 mmol/l (132-148) 10/23/18 04:20 Potassium 4.2 MMOL/L (3.6-5.0) 10/23/18 04:20 Chloride 102 mmol/L (98-107) 10/23/18 04:20 Carbon Dioxide 28 mmol/L (22-30) 10/23/18 04:20 Anion Gap 14 (10-20) 10/23/18 04:20 BUN 47 mg/dl (9-20) H 10/23/18 04:20 Creatinine 1.7 mg/dl (0.8-1.5) H 10/23/18 04:20 Est GFR ( Amer) 47 10/23/18 04:20 Est GFR (Non-Af Amer) 39 10/23/18 04:20 POC Glucose (mg/dL) 314 mg/dL (65-110) H 10/23/18 10:38 Random Glucose 183 mg/dL (75-110) H 10/23/18 04:20 Calcium 9.3 mg/dL (8.4-10.2) 10/23/18 04:20 Phosphorus 3.7 mg/dl (2.5-4.5) 10/21/18 12:16 Magnesium 1.9 MG/DL (1.6-2.3) 10/23/18 04:20 Total Bilirubin 1.0 mg/dl (0.2-1.3) 10/23/18 04:20 AST 43 U/L (17-59) 10/23/18 04:20 ALT 35 U/L (21-72) 10/23/18 04:20 Alkaline Phosphatase 96 U/L (38-126) 10/23/18 04:20 Troponin I 0.0700 ng/mL (0.00-0.120) 10/21/18 12:16 NT-Pro-B Natriuret Pep 3470 pg/ml (0-900) H 10/23/18 04:20 Total Protein 7.1 G/DL (6.3-8.2) 10/23/18 04:20 Albumin 3.6 g/dL (3.5-5.0) 10/23/18 04:20 Globulin 3.4 gm/dL (2.2-3.9) 10/23/18 04:20 Albumin/Globulin Ratio 1.1 (1.0-2.1) 10/23/18 04:20 Urine Color Yellow (YELLOW) 10/21/18 23:15 Urine Clarity Clear (Clear) 10/21/18 23:15 Urine pH 5.0 (5.0-8.0) 10/21/18 23:15 Ur Specific Barto 1.011 (1.003-1.030) 10/21/18 23:15 Urine Protein Negative mg/dL (NEGATIVE) 10/21/18 23:15 Urine Glucose (UA) Neg mg/dL (NEGATIVE) 10/21/18 23:15 Urine Ketones Negative mg/dL (NEGATIVE) 10/21/18 23:15 Urine Blood Negative (NEGATIVE) 10/21/18 23:15 Urine Nitrate Negative (NEGATIVE) 10/21/18 23:15 Urine Bilirubin Negative (NEGATIVE) 10/21/18 23:15 Urine Urobilinogen 0.2-1.0 mg/dL (0.2-1.0) 10/21/18 23:15 Ur Leukocyte Esterase Trace Opal/uL (Negative) 10/21/18 23:15 Urine RBC (Auto) 3 /hpf (0-3) 10/21/18 23:15 Urine Microscopic WBC 2 /hpf (0-5) 10/21/18 23:15 Ur Squamous Epith Cells 1 /hpf (0-5) 10/21/18 23:15 Urine Bacteria Rare (<OCC) 10/21/18 23:15 Hyaline Casts 11-20 /hpf (0-2) H 10/21/18 23:15 - Hospital Course Hospital Course: 78 yo M with pmhx of CHF, Cardiac bypass , atrial fibrillation, peripheral artery disease, HTN, DM, dyslipidemia, enlarged prostate, COPD who presented to the ED with 3 day history of SOB admitted for CHF exacerbation. CXR was negative for acute cardiopulmonary disease. Patient was seen and examined this morning, breathing comfortably, saturating at 97% on room air. He denies any chest pain or sob at this time. Discharge home with FU with Dr. Calabrese. CHF exacerbation (acute on chronic) -c/w home meds lasix, spironolactone AFIB (chronic) -c/w xarelto CAD/PAD (chronic) HTN (chronic) -c/w amlodipine DM (chronic) c/w home meds CKD stage 3 COPD (chronic) -Enlarged prostate (chronic) Discharge Exam - Head Exam Head Exam: ATRAUMATIC, NORMAL INSPECTION, NORMOCEPHALIC - Eye Exam Eye Exam: EOMI - ENT Exam ENT Exam: Mucous Membranes Moist - Respiratory Exam Additional comments: distant heart sounds - Cardiovascular Exam Cardiovascular Exam: +S1, +S2 Additional comments: borderline tachycardia - GI/Abdominal Exam GI & Abdominal Exam: Normal Bowel Sounds, Soft. absent: Firm, Guarding, Rigid, Tenderness - Extremities Exam Additional comments: c/d/i dressing over left digits on left foot; +1 pitting edema - Psychiatric Exam Psychiatric exam: Normal Mood - Skin Skin Exam: Dry Discharge Plan - Discharge Medications Prescriptions: Albuterol 0.083% [Albuterol 0.083% Inhal Yakelin (2.5 mg/3 ml) UD] 2.5 mg IH Q4 #1 pump Silver Sulfadiazine 1% 20 gm [Silvadene 1% 20 gm] 15 gm TOP DAILY #1 tube Sulfamethoxazole/Trimethoprim [Bactrim 400-80 mg Tablet] 1 each PO DAILY 14 Days #14 tablet - Follow Up Plan Condition: STABLE Disposition: HOME/ ROUTINE Instructions: Heart Failure, Adult (DC), Shortness of Breath (Dyspnea) (DC) Additional Instructions: follow up appointment with Dr. Sanjuana Suarez on november 02 at 11:30am Referrals: Jay Brown MD [Staff Provider] - Eric Suarez MD [Staff Provider] - Sekou Bone MD [Staff Provider] - Nick Tian MD [Medical Doctor] -
== END 2018-10-23 17:00 | disposition home or self-care (01) | DRG 291 ==
LOC: H.ER 11:29 → H.ERHOLD 14:10 → H.TEL 16:39
DX: I13.0 Hypertensive heart and chronic kidney disease with heart failure and stage 1 through stage 4 chronic kidney disease, or unspecified chronic kidney disease (principal); I50.23 Acute on chronic systolic (congestive) heart failure; N18.3 Chronic kidney disease, stage 3 (moderate); E11.22 Type 2 diabetes mellitus with diabetic chronic kidney disease; E11.51 Type 2 diabetes mellitus with diabetic peripheral angiopathy without gangrene; E78.00 Pure hypercholesterolemia, unspecified; E78.5 Hyperlipidemia, unspecified; I34.0 Nonrheumatic mitral (valve) insufficiency; J44.9 Chronic obstructive pulmonary disease, unspecified; Z79.01 Long term (current) use of anticoagulants; Z89.422 Acquired absence of other left toe(s); I25.10 Atherosclerotic heart disease of native coronary artery without angina pectoris; Z95.1 Presence of aortocoronary bypass graft; Z95.5 Presence of coronary angioplasty implant and graft; I48.2 Chronic atrial fibrillation; Z86.73 Personal history of transient ischemic attack (TIA), and cerebral infarction without residual deficits; Z87.891 Personal history of nicotine dependence; Z79.4 Long term (current) use of insulin; E11.621 Type 2 diabetes mellitus with foot ulcer; L97.529 Non-pressure chronic ulcer of other part of left foot with unspecified severity; D63.8 Anemia in other chronic diseases classified elsewhere; I25.2 Old myocardial infarction; N40.0 Benign prostatic hyperplasia without lower urinary tract symptoms; Z91.19 Patient's noncompliance with other medical treatment and regimen; Z91.11 Patient's noncompliance with dietary regimen; I27.20 Pulmonary hypertension, unspecified; L97.519 Non-pressure chronic ulcer of other part of right foot with unspecified severity

== ENCOUNTER 2018-10-27 10:22 | Inpatient (IN) | payer MEDICARE ==
[2018-10-27 10:22] VITALS: BMI 29.5
[2018-10-27 11:08] LABS: BASO # 0.1 K/uL (0.0-0.2); BASO % 1.4 % (0.0-2.0); EOS # 0.1 K/uL (0.0-0.7); HEMOGLOBIN 10.4 g/dL (12.0-18.0); LYMPH % 12.1 % (20.0-40.0); MEAN CELL VOLUME 85.4 fl (80.0-94.0); MEAN CORPUSCULAR HEMOGLOBIN 27.5 pg (27.0-31.0); MEAN CORPUSCULAR HGB CONC 32.2 g/dL (33.0-37.0); MEAN PLATELET VOLUME 8.5 fl (7.2-11.7); MONO # 0.8 K/uL (0.0-0.8); MONO % 10.1 % (0.0-10.0); NEUT % 75.4 % (50.0-75.0); RBC 3.79 Mil/uL (4.40-5.90); RED CELL DISTRIBUTION WIDTH 17.8 % (11.5-14.5); WHITE BLOOD COUNT 7.9 K/uL (4.8-10.8)
[2018-10-27 11:13] LABS: INR 1.3
[2018-10-27 11:15] LABS: PARTIAL THROMBOPLASTIN TIME 25.4 Seconds (25.6-37.1)
--- NOTE | 2018-10-27 11:32 | ED PDOC ---
HPI: Trauma/Fall - HPI Time Seen by Provider: 10/27/18 10:30 Chief Complaint (Nursing): Trauma Chief Complaint (Provider): Trauma History Per: Patient History/Exam Limitations: no limitations Onset/Duration Of Symptoms: Days (1) Additional Complaint(s): 78 y/o male recently discharged with diagnosed CHF presents to the ED due to decompensation with multiple falls at home and the last fall was overnight. Son in law found him with abrasions to the head and contacted Dr. Eller (PMD). Contact the provider this morning that he is coming in with admission and is speaking to patient at bedside. According to the son in law who is at bedside states patient is unable to take care of himself since he been discharge from the hospital. Patient denies any headaches, neck pain, shortness of breath, or any other complaints. PMD: Dr. Suarez Past Medical History Reviewed: Historical Data, Nursing Documentation, Vital Signs Vital Signs: Last Vital Signs Temp 98.3 F 10/27/18 10:25 Pulse 106 H 10/27/18 10:25 Resp 16 10/27/18 10:25 BP 144/93 H 10/27/18 10:25 Pulse Ox 97 10/27/18 10:25 - Medical History PMH: Arthritis, Atrial Fibrillation, CAD, Cardia Arrhythmia, CHF, COPD, CVA, Diabetes, HTN, Hypercholesterolemia, Peripheral Edema, Pneumonia Denies: Alzheimer's Disease, Anemia, Anxiety, Asthma, Bipolar Disorder, Bronchitis, Crohn's Disease, Dementia, Depression, Diverticulitis, Emphysema, Fractures, Gastritis, Gall Bladder Disease, HIV, Hyperthyroidism, Hypothyroidism, Kidney Stones, Migraine, Mitral Valve Prolapse, Multiple Sclerosis, Osteoporosis, Pancreatitis, Paranoia, Parkinson's Disease, Post T raumatic Stress Disorder, Pulmonary Embolism, Chronic Kidney Disease, Rheumatoid Arthritis, Schizophrenia, Seizures, Sickle Cell Disease, Sexually Transmitted Disease, Sleep Apnea, TIA - Surgical History Surgical History: CABG (5x), Coronary Stent Denies: Appendectomy, Carotid Endarterectomy, Cholecystectomy, Pacemaker, Tonsillectomy - Family History Family History: States: Diabetes, Hypertension - Immunization History Hx Tetanus Toxoid Vaccination: Yes Hx Influenza Vaccination: Yes Hx Pneumococcal Vaccination: Yes - Home Medications Home Medications: Ambulatory Orders Medication Instructions Recorded Furosemide [Lasix] 80 mg PO BID 10/03/17 Zolpidem [Ambien] 10 mg PO HS 10/03/17 Tamsulosin [Flomax] 0.4 mg PO DAILY 07/04/18 Losartan [Cozaar] 25 mg PO DAILY tab 07/07/18 Spironolactone [Aldactone] 50 mg PO DAILY tab 07/07/18 amLODIPine [Norvasc] 10 mg PO DAILY tab 07/07/18 Albuterol 0.083% [Albuterol 0.083% 2.5 mg IH Q4 #1 pump 10/23/18 Inhal Yakelin (2.5 mg/3 ml) UD] Sulfamethoxazole/Trimethoprim 1 each PO DAILY 14 Days #14 tablet 10/23/18 [Bactrim 400-80 mg Tablet] Insulin Human NPH [Humulin N] 10 units SC QAM 10/27/18 Insulin Human NPH [Humulin N] 20 unit SC QPM 10/27/18 Rivaroxaban [Xarelto] 15 mg PO DAILY 10/27/18 Silver Sulfadiazine 1% 20 gm 1 appl TOP DAILY 10/27/18 [Silvadene 1% 20 gm] - Allergies Allergies/Adverse Reactions: Allergies Allergy/AdvReac Type Severity Reaction Status Date / Time No Known Allergies Allergy Verified 10/21/18 11:42 Review of Systems ROS Statement: Except As Marked, All Systems Reviewed And Found Negative Constitutional: Positive for: Other (no headaches) Respiratory: Negative for: Shortness of Breath Musculoskeletal: Negative for: Neck Pain Physical Exam - Reviewed Nursing Documentation Reviewed: Yes Vital Signs Reviewed: Yes - Physical Exam Appears: Positive for: Well, Non-toxic, No Acute Distress Head Exam: Positive for: ATRAUMATIC, NORMOCEPHALIC Skin: Positive for: Normal Color, Warm, Dry Eye Exam: Positive for: EOMI, Normal appearance, PERRL ENT: Positive for: Normal ENT Inspection Neck: Positive for: Normal, Painless ROM, Supple Cardiovascular/Chest: Positive for: Tachycardia (bilaterally, but regular heart sounds) Respiratory: Positive for: Normal Breath Sounds, Crackles (faint) Gastrointestinal/Abdominal: Positive for: Normal Exam, Soft. Negative for: Tenderness Back: Positive for: Normal Inspection. Negative for: L CVA Tenderness, R CVA Tenderness Extremity: Positive for: Normal ROM Neurological/Psych: Positive for: Awake, Alert, Normal Tone, Oriented (x3). Negative for: Motor/Sensory Deficits Comments: Abrasion on right and left forehead. No active bleeding. - Laboratory Results Result Diagrams: 10/27/18 10:58 10/27/18 10:58 Lab Results: PT 15.0 Seconds (9.8-13.1) H 10/27/18 10:58 INR 1.3 10/27/18 10:58 APTT 25.4 Seconds (25.6-37.1) L 10/27/18 10:58 - ECG O2 Sat by Pulse Oximetry: 97 Medical Decision Making Medical Decision Making: Time:1123 Initial Impression: Initial Plan: -EKG -Head CT w/out contrast -BNP -BMP -Troponin -CBC -Partial thromboplastin -Prothrombin Time -Chest x-ray -Glucose Composition due to CHF. Workup head trauma due to recent falls and abrasions. No spinal tenderness, CT for cervical spine. Contact Dr. Mata and admit under Dr. Suarez. Scribe Attestation: Documented by Coral Balbuena, acting as a scribe for Jennifer Gomez Provider Scribe Attestation: All medical record entries made by the Scribe were at my direction and personally dictated by me. I have reviewed the chart and agree that the record accurately reflects my personal performance of the history, physical exam, medical decision making, and the department course for this patient. I have also personally directed, reviewed, and agree with the discharge instructions and disposition. Disposition - Clinical Impression Clinical Impression: CHF exacerbation - Disposition Disposition Time: 11:30 Condition: GUARDED
[2018-10-27 11:33] LABS: CALCIUM 9.4 mg/dL (8.4-10.2)
[2018-10-27 11:46] LABS: TROPONIN I 0.076 ng/mL (0.00-0.120)
--- NOTE | 2018-10-27 12:37 | CT ---
Date of service: 10/27/2018 PROCEDURE: CT HEAD WITHOUT CONTRAST. HISTORY: fall with head trauma COMPARISON: Unenhanced head CT 12/05/2013. TECHNIQUE: Axial computed tomography images were obtained through the head/brain without intravenous contrast. Radiation dose: Total exam DLP = 869.84 mGy-cm. This CT exam was performed using one or more of the following dose reduction techniques: Automated exposure control, adjustment of the mA and/or kV according to patient size, and/or use of iterative reconstruction technique. FINDINGS: HEMORRHAGE: No intracranial hemorrhage. BRAIN: Good corticomedullary differentiation is seen. Reiterated diffuse cerebral atrophy and chronic microangiopathy. No suspicious extra-axial fluid collection is identified and the midline brain anatomy appears grossly nonfocal as imaged. No mass effect identified. VENTRICLES: Unremarkable. No hydrocephalus. CALVARIUM: No destructive bony lesion or displaced fracture identified including through the skullbase. PARANASAL SINUSES: Limited right maxillary sinus disease appreciated. MASTOID AIR CELLS: Unremarkable as visualized. No inflammatory changes. OTHER FINDINGS: None. IMPRESSION: Stable age related neuro degenerative changes remain age-appropriate. No acute intracranial findings by standard CT criteria. No fracture identified.
--- NOTE | 2018-10-27 13:24 | CARD ---
APPROVED REPORT Date of service: 10/27/2018 EKG Measurement Heart [id number] <Conclusion> Sinus rhythm with occasional premature ventricular complexes Posssible inferior infarct, age undetermined Poor R wave progression in Precordial leads Abnormal ECG
--- NOTE | 2018-10-27 15:07 | RAD ---
Date of service: 10/27/2018 HISTORY: possible admission COMPARISON: Portable chest 10/21/2018 TECHNIQUE: 1 view obtained. FINDINGS: LUNGS: No active pulmonary disease. PLEURA: No significant pleural effusion identified, no pneumothorax apparent. CARDIOVASCULAR: Calcific atherosclerotic changes are seen related to the thoracic aorta. Stable cardiomegaly. Post CABG changes reiterated with sternotomy again evident as well as mediastinal surgical clips. OSSEOUS STRUCTURES: No significant abnormalities. VISUALIZED UPPER ABDOMEN: Normal. OTHER FINDINGS: None. IMPRESSION: Stable cardiomegaly, post CABG changes. No acute infiltrate, pleural effusion or pulmonary vascular congestion appreciable.
[2018-10-27] MEDS ORDERED: Glucagon Recombinant 1 mg Inj IM PRN (23:41)
[2018-10-27] MEDS ORDERED: Dextrose 50% SYRINGE Inj (50 ml) IV PRN (23:41)
[2018-10-27] MEDS ORDERED: Insulin Lispro (humaLOG) 100 Units/ml Inj SC STA (23:43)
[2018-10-28] MEDS: Tmp-Smz 400 mg-80 mg SS Tab PO SCH (08:52)
[2018-10-28] MEDS: Insulin NPH Human 100 Units/ml Inj SC SCH ×2 (08:53→17:00)
[2018-10-28] MEDS: Silver Sulfadiazine 1% Cream (20 gm) TOP SCH (08:54)
[2018-10-28] MEDS: Insulin Lispro (humaLOG) 100 Units/ml Inj SC SCH ×4 (08:55→21:28)
--- NOTE | 2018-10-28 09:54 | CP.PCM.HP ---
History of Present Illness - History of Present Illness History of Present Illness: This 78-year-old man with a long medical history of hypertension and diabetes with coronary artery disease was had an inferior wall myocardial infarction and required coronary bypass graft surgery more than 10 years back followed by coronary stenting subsequently, and who has had chronic atrial fibrillation with severe congestive cardiac failure requiring multiple hospitalizations was brought to the emergency room after repeatedly falling at home while trying to get out of bed and go to the bathroom. The patient was recently hospitalized at this institution for congestive cardiac failure and after initial period of diuresing him when he was sent home before an assessment could be made about his ability to ambulate independently. The patient has been on oral anticoagulation and also uses bronchodilators for COPD as a consequence of chronic cigarette use in the past. He has had severe peripheral vascular insufficiency requiring amputation of second toe on the left and has had superficial ulcers as a result of chronic ischemic feet. The patient has had BPH and has undergone TURP. Physical examination shows an elderly -[place] male who is alert awake and coherent. Afebrile with a pulse rate that ranges between 90 and 110 bpm on telemetry with atrial fibrillation and a blood pressure of 136/70 mmHg. His jugular venous pressure was mildly elevated and there was pitting edema over both lower extremities. His pedal pulses were not palpable. There were no carotid bruits. His extremities were warm his nailbeds were pink and his mentation was fine. There is a scar of sternotomy. [place] was in the 6 space slightly heaving in character with a long apical systolic murmur of mitral regur gitation. Inspiratory effort was poor but there were fine rales at both bases. The expiration was not prolonged and there was no wheezing audible. His abdomen was soft and liver and spleen are not palpable. Electrocardiogram shows atrial fibrillation with moderate heart rate and evidence of an old inferior wall myocardial infarction. His chest x-ray was noted. His labs showed a hemoglobin of 10.4 g with a normal MCV and a normal WBC count. His BUN and creatinine were 54 and 2 mg percent with normal electrolytes. Troponin was normal and the proBNP was 3780 pg/mL. Impression: Repeated falling as a consequence of severe congestive cardiac failure which was chronic systolic and left ventricular. Stable coronary artery disease with prior myocardial infarction and status post coronary bypass graft surgery more than 10 years back. Chronic atrial fibrillation. Severe peripheral vascular disease with status post amputation of his second left toe and ischemic feet bilaterally. BPH with status post TURP. COPD. The patient is being monitored on a telemetry floor and will receive intravenous furosemide to diurese him. Once euvolemic, he would be sent for a brief period of physical therapy and gait training before returning home. He will require intervention for a severely ischemic left leg and will be evaluated for possible AICD because of his severely depressed left ventricular systolic function. Present on Admission - Present on Admission Any Indicators Present on Admission: No Past Patient History - Tetanus Immunizations Tetanus Immunization: Unknown - Past Medical History & Family History Past Medical History?: Yes - Past Social History Smoking Status: Never Smoked - CARDIAC Hx Cardiac Disorders: Yes Hx Atrial Fibrillation: Yes Hx Cardia Arrhythmia: Yes Hx Congestive Heart Failure: Yes Hx Hypercholesterolemia: Yes Hx Hypertension: Yes Hx Peripheral Edema: Yes - PULMONARY Hx Respiratory Disorders: Yes Hx Chronic Obstructive Pulmonary Disease (COPD): Yes Hx Pneumonia: Yes - NEUROLOGICAL Hx Neurological Disorder: No Hx Alzheimer's Disease: No Hx Dementia: No Hx Migraine: No Hx Multiple Sclerosis: No Hx Parkinson's Disease: No Hx Seizures: No Hx Transient Ischemic Attacks (TIA): No - HEENT Hx HEENT Problems: No - RENAL Hx Chronic Kidney Disease: No - ENDOCRINE/METABOLIC Hx Endocrine Disorders: Yes Other/Comment: DM - HEMATOLOGICAL/ONCOLOGICAL Hx Blood Disorders: Yes - INTEGUMENTARY Hx Dermatological Problems: No - MUSCULOSKELETAL/RHEUMATOLOGICAL Hx Musculoskeletal Disorders: Yes Hx Falls: Yes Hx Unsteady Gait: Yes - GASTROINTESTINAL Hx Gastrointestinal Disorders: No Hx Crohn's Disease: No Hx Diverticulitis: No Hx Gall Bladder Disease: No Hx Gastritis: No Hx Pancreatitis: No - GENITOURINARY/GYNECOLOGICAL Hx Genitourinary Disorders: No Hx Sexually Transmitted Disorders: No - PSYCHIATRIC Hx Psychophysiologic Disorder: No Hx Substance Use: No - SURGICAL HISTORY Hx Surgeries: Yes Hx Appendectomy: No Hx Carotid Endarterectomy: No Hx Cholecystectomy: No Hx Coronary Artery Bypass Graft: Yes (5x) Hx Coronary Stent: Yes Hx Tonsillectomy: No - ANESTHESIA Hx Anesthesia: Yes Hx Anesthesia Reactions: No Hx Malignant Hyperthermia: No Meds Allergies/Adverse Reactions: Allergies Allergy/AdvReac Type Severity Reaction Status Date / Time No Known Allergies Allergy Verified 10/21/18 11:42 Results - Vital Signs Recent Vital Signs: Last Vital Signs Temp 98.3 F 10/28/18 07:49 Pulse 98 H 10/28/18 08:52 Resp 18 10/28/18 07:49 BP 125/81 10/28/18 08:52 Pulse Ox 97 10/28/18 07:49 - Labs Result Diagrams: 10/27/18 10:58 10/27/18 10:58 Labs: Laboratory Results - last 24 hr 10/27/18 10/27/18 10/27/18 10:34 10:58 10:58 WBC 7.9 RBC 3.79 L Hgb 10.4 L Hct 32.4 L MCV 85.4 MCH 27.5 MCHC 32.2 L RDW 17.8 H Plt Count 417 H MPV 8.5 Neut % (Auto) 75.4 H Lymph % (Auto) 12.1 L [place] % (Auto) 10.1 H Eos % (Auto) 1.0 Baso % (Auto) 1.4 Neut # (Auto) 6.0 Lymph # (Auto) 1.0 [place] # (Auto) 0.8 Eos # (Auto) 0.1 Baso # (Auto) 0.1 PT INR APTT Sodium 136 Potassium 4.4 Chloride 101 Carbon Dioxide 24 Anion Gap 15 BUN 54 H Creatinine 2.0 H Est GFR ( Amer) 39 Est GFR (Non-Af Amer) 32 POC Glucose (mg/dL) 235 H Random Glucose 228 H Calcium 9.4 Troponin I 0.0760 NT-Pro-B Natriuret Pep 3780 H Blood Type Antibody Screen BBK History Checked 10/27/18 10/27/18 10/27/18 10:58 10:58 22:37 WBC RBC Hgb Hct MCV MCH MCHC RDW Plt Count MPV Neut % (Auto) Lymph % (Auto) [place] % (Auto) Eos % (Auto) Baso % (Auto) Neut # (Auto) Lymph # (Auto) [place] # (Auto) Eos # (Auto) Baso # (Auto) PT 15.0 H INR 1.3 APTT 25.4 L Sodium Potassium Chloride Carbon Dioxide Anion Gap BUN Creatinine Est GFR ( Amer) Est GFR (Non-Af Amer) POC Glucose (mg/dL) 290 H Random Glucose Calcium Troponin I NT-Pro-B Natriuret Pep Blood Type A POSITIVE Antibody Screen Negative BBK History Checked Patient has bt 10/28/18 05:24 WBC RBC Hgb Hct MCV MCH MCHC RDW Plt Count MPV Neut % (Auto) Lymph % (Auto) [place] % (Auto) Eos % (Auto) Baso % (Auto) Neut # (Auto) Lymph # (Auto) [place] # (Auto) Eos # (Auto) Baso # (Auto) PT INR APTT Sodium Potassium Chloride Carbon Dioxide Anion Gap BUN Creatinine Est GFR ( Amer) Est GFR (Non-Af Amer) POC Glucose (mg/dL) 230 H Random Glucose Calcium Troponin I NT-Pro-B Natriuret Pep Blood Type Antibody Screen BBK History Checked
--- NOTE | 2018-10-28 11:44 | CP.PCM.CON ---
History of Present Illness - History of Present Illness History of Present Illness: Asked to evaluate the respiratory status of this 78 year old former cigarette smoker with a prior diagnosis of COPD. He had been hospitalized recently with decompensated CHF and discharged to home after diuresis. Unfortunately he began to have recurring, frequent episodes of falling which resulted in his return to the emergency room. he did not complain of shortness of breath or coughing, and denied chest pain or hemoptysis. A chest x-ray done in the ER did not reveal any infiltrates or pleural effusions, but there was a vascular congested pattern seen. He has been afebrile, and his SpO2 has been 90%+ since admission. There has been a drop in his eGFR to 39 from 47 previously. He is a type 2 diabetic who has been on insulin and suffers from PAD with a prior partial amputation of the left great toe. CT angiogram has shown very poor vascular status of the LEs, probably a result of diabetes and prior tobacco use. He has been using albuterol only on an 'as needed' basis without any problem. Past Patient History - Tetanus Immunizations Tetanus Immunization: Unknown - Past Medical History & Family History Past Medical History?: Yes - Past Social History Smoking Status: Former Smoker Chewing Tobacco Use: No Cigar Use: No Alcohol: None Drugs: Denies Home Situation {Lives}: With Family - CARDIAC Hx Atrial Fibrillation: Yes Hx Cardia Arrhythmia: Yes Hx Congestive Heart Failure: Yes Hx Hypercholesterolemia: Yes Hx Hypertension: Yes Hx Peripheral Edema: Yes Hx Peripheral Vascular Disease: Yes - PULMONARY Hx Bronchitis: Yes Hx Chronic Obstructive Pulmonary Disease (COPD): Yes Hx Emphysema: Yes Hx Pneumonia: Yes - NEUROLOGICAL HX Cerebrovascular Accident: Yes (resolved w/o permanent sequelae) - HEENT Hx HEENT Problems: No - RENAL Hx Chronic Kidney Disease: Yes Hx Neurogenic Bladder: Yes - ENDOCRINE/METABOLIC Hx Diabetes Mellitus Type 2: Yes (insulin dependant) Other/Comment: DM - HEMATOLOGICAL/ONCOLOGICAL Hx Anemia: Yes - INTEGUMENTARY Hx Dermatological Problems: No - MUSCULOSKELETAL/RHEUMATOLOGICAL Hx Falls: Yes Hx Unsteady Gait: Yes - GASTROINTESTINAL Hx Gastrointestinal Disorders: No - GENITOURINARY/GYNECOLOGICAL Hx Prostate Problems: Yes Hx Sexually Transmitted Disorders: No Hx Urinary Tract Infection: Yes - PSYCHIATRIC Hx Psychophysiologic Disorder: No Hx Substance Use: No - SURGICAL HISTORY Hx Surgeries: Yes Hx Amputation: Yes (left great toe) Hx Coronary Artery Bypass Graft: Yes (5x) Hx Coronary Stent: Yes - ANESTHESIA Hx Anesthesia: Yes Hx Anesthesia Reactions: No Hx Malignant Hyperthermia: No Meds Allergies/Adverse Reactions: Allergies Allergy/AdvReac Type Severity Reaction Status Date / Time No Known Allergies Allergy Verified 10/21/18 11:42 - Medications Medications: Current Medications Dextrose (Dextrose 50% Inj) 0 ml IV STAT PRN; Protocol PRN Reason: Hypoglycemia Protocol Dextrose (Glutose 15) 0 gm PO ONCE PRN; Protocol PRN Reason: Hypoglycemia Protocol Furosemide (Lasix) 40 mg IVP BID [facility] Last Admin: 10/28/18 08:51 Dose: 40 mg Glucagon (Glucagen Diagnostic Kit) 0 mg IM STAT PRN; Protocol PRN Reason: Hypoglycemia Protocol Insulin Human Lispro (Humalog) 0 units SC ACHS [facility]; Protocol Last Admin: 10/28/18 08:55 Dose: 3 units Insulin Human NPH (Humulin N) 20 units SC QPM [facility] Insulin Human NPH (Humulin N) 10 units SC QAM [facility] Last Admin: 10/28/18 08:53 Dose: 10 units Losartan Potassium (Cozaar) 25 mg PO DAILY [facility] Last Admin: 10/28/18 08:52 Dose: 25 mg Rivaroxaban (Xarelto) 15 mg PO DAILY [facility]; Protocol Last Admin: 10/28/18 08:55 Dose: 15 mg Silver Sulfadiazine (Silvadene 1% 20 Gm) 1 ea TOP DAILY [facility] Last Admin: 10/28/18 08:54 Dose: 1 applic Spironolactone (Aldactone) 50 mg PO DAILY [facility] Last Admin: 10/28/18 08:53 Dose: 50 mg Tamsulosin HCl (Flomax) 0.4 mg PO DAILY [facility] Last Admin: 10/28/18 08:52 Dose: 0.4 mg Trimethoprim/Sulfamethoxazole (Bactrim Ss Tab) 1 tab PO DAILY [facility]; Protocol Last Admin: 10/28/18 08:52 Dose: 1 tab Zolpidem Tartrate (Ambien) 5 mg PO HS [facility] Last Admin: 10/28/18 00:03 Dose: 5 mg Physical Exam - Additional Findings Additional findings: Well nourished, well developed, awake, alert, oriented x 3. Memory appears intact, speech is fluent. Gait not tested. Dependant edema 1+ both LEs, ankle/foot pulses not palpable. Partial amputation of left great toe, no cyanosis, no infections seen. Extremities are warm to touch. Pharynx is pink and moist, no exudates. Conjunctivae are pink and non-icteric. Neck is supple and trachea midline. No visible JVD, carotid upstroke decreased bilaterally w/o bruit. Healed thyroidectomy scar. No dullness on chest percussion. Breath sounds are diminished bilaterally with scattered dry rales in the lower lobes. No audible wheezes or bronchial breath sounds, few rhonchi in dependant regions. Heart sounds are distant, irregular rhythm. Abdomen is soft and non-tender with + BS. Results - Vital Signs Recent Vital Signs: Last Vital Signs Temp 98.3 F 10/28/18 07:49 Pulse 98 H 10/28/18 08:52 Resp 18 10/28/18 07:49 BP 125/81 10/28/18 08:52 Pulse Ox 97 10/28/18 07:49 - Labs Result Diagrams: 10/27/18 10:58 10/27/18 10:58 Labs: Laboratory Results - last 24 hr 10/27/18 10/27/18 10/27/18 10:58 10:58 22:37 POC Glucose (mg/dL) 290 H Troponin I 0.0760 NT-Pro-B Natriuret Pep 3780 H Blood Type A POSITIVE Antibody Screen Negative 10/28/18 10/28/18 05:24 10:57 POC Glucose (mg/dL) 230 H 336 H Troponin I NT-Pro-B Natriuret Pep Blood Type Antibody Screen Assessment & Plan (1) CAD (coronary artery disease) Status: Chronic Priority: High (2) COPD (chronic obstructive pulmonary disease) Status: Chronic Priority: High (3) DM2 (diabetes mellitus, type 2) Status: Chronic Priority: High (4) Peripheral arterial disease Status: Chronic Priority: High - Assessment and Plan (Free Text) Plan: Respiratory status is sufficiently stable at his time without scheduled treatments. Would reserve treatment for now, but would initiate LAMA when he becomes more active as JEAN will develop. He is a perfect candidate for sub-acute rehabilitation. Will follow with you, thanks. - Date & Time Date: 10/28/18 Time: 11:42
[2018-10-28] MEDS: Meropenem 500 MG in Sodium Chloride 0.9% 100 ML IVPB SCH (16:45)
[2018-10-28] MEDS: Linezolid 600 mg in D5W 300 ml 600 MG/300 ML BAG IVPB SCH (21:11)
[2018-10-29] MEDS: Meropenem 500 MG in Sodium Chloride 0.9% 100 ML IVPB SCH ×2 (01:57→13:47)
--- NOTE | 2018-10-29 02:41 | CON ---
DATE: 10/28/2018 HISTORY OF PRESENT ILLNESS: I was asked to do infectious disease consult on this 78-year-old male with history of COPD, diabetes mellitus, congestive heart failure, and basically had been admitted to the hospital last week and was discharged after three days. I am asked to evaluate the ulcers on his toes. The patient is alert, cooperative, and oriented to time and place. He had some peripheral edema and he had a recent partial amputation of the left great toe. CT of the angio showed very poor vascular status of the lower extremities, probably result of diabetes and prior tobacco use. PHYSICAL EXAMINATION: HEENT: Essentially within normal limits. NECK: Supple. LUNGS: Decreased breath sounds with some rales bilaterally in the lobes. HEART: Regular sinus rhythm. ABDOMEN: Soft. Positive bowel sounds. EXTREMITIES: Has some bilateral ulcerations on both lower extremities, especially the great toe. LABORATORY DATA: On the last admission, he had grown gram-negative rods, which were found to be Enterobacter and he also had Staph epidermidis. IMPRESSION: He is being seen for Cardiology by Dr. Suarez and pulmonary by Dr. Bone. For the present time, I have started him on intravenous antibiotics including Zyvox 600 mg intravenous piggyback every 12 hours and also meropenem 500 mg intravenous piggyback every 12 hours. He is also getting silver sulfadiazine on his toes and on his feet with dressings. We will discontinue the oral Bactrim. Nick Tian MD
[2018-10-29] MEDS: Insulin Lispro (humaLOG) 100 Units/ml Inj SC SCH ×4 (07:08→22:21)
[2018-10-29] MEDS: Tmp-Smz 400 mg-80 mg SS Tab PO SCH (09:14)
[2018-10-29] MEDS: Linezolid 600 mg in D5W 300 ml 600 MG/300 ML BAG IVPB SCH ×2 (09:14→21:50)
[2018-10-29] MEDS: Silver Sulfadiazine 1% Cream (20 gm) TOP SCH (09:15)
[2018-10-29] MEDS: Insulin NPH Human 100 Units/ml Inj SC SCH ×2 (09:16→18:18)
--- NOTE | 2018-10-29 09:48 | CP.PCM.PN ---
Subjective - Date & Time of Evaluation Date of Evaluation: 10/29/18 Time of Evaluation: 09:00 - Subjective Subjective: The patient has been diuresing well with intravenous furosemide and reports an improvement in his dyspnea on exertion. The patient has been able to get in and out of bed without getting much short of breath but has not walked much as yet. His telemetry shows atrial fibrillation at a heart rate mostly between 90 and 100 bpm with occasional premature ventricular beats. His blood pressure lying down and standing up was 140/70 mmHg. Along apical systolic murmur was audible at apex. His pedal edema was markedly reduced and there were very few rales at both bases. Pulmonary and infectious disease consultations were appreciated. The patient will his labs taken tomorrow to evaluate his BUN/creatinine and electrolytes. Following resolution of his volume overload the patient would then be sent to transitional care unit before returning home. Objective - Vital Signs/Intake and Output Vital Signs (last 24 hours): Temp Pulse Resp BP Pulse Ox 97.8 F 106 H 18 130/74 97 10/29/18 07:45 10/29/18 09:14 10/29/18 07:45 10/29/18 09:14 10/29/18 07:45 - Medications Medications: Current Medications Dextrose (Dextrose 50% Inj) 0 ml IV STAT PRN; Protocol PRN Reason: Hypoglycemia Protocol Dextrose (Glutose 15) 0 gm PO ONCE PRN; Protocol PRN Reason: Hypoglycemia Protocol Furosemide (Lasix) 40 mg IVP BID [facility] Last Admin: 10/29/18 09:13 Dose: 40 mg Glucagon (Glucagen Diagnostic Kit) 0 mg IM STAT PRN; Protocol PRN Reason: Hypoglycemia Protocol Meropenem 500 mg/ Sodium (Chloride) 100 mls @ 100 mls/hr IVPB Q12H [facility]; Protocol Last Admin: 10/29/18 01:57 Dose: 100 mls/hr Linezolid (Zyvox 600mg/300ml D5w) 600 mg in 300 mls @ 300 mls/hr IVPB Q12 [facility]; Protocol Last Admin: 10/29/18 09:14 Dose: 300 mls/hr Insulin Human Lispro (Humalog) 0 units SC ACHS [facility]; Protocol Last Admin: 10/29/18 07:08 Dose: Not Given Insulin Human NPH (Humulin N) 20 units SC QPM [facility] Last Admin: 10/28/18 17:00 Dose: 20 units Insulin Human NPH (Humulin N) 10 units SC QAM [facility] Last Admin: 10/29/18 09:16 Dose: 10 units Losartan Potassium (Cozaar) 25 mg PO DAILY [facility] Last Admin: 10/29/18 09:14 Dose: 25 mg Rivaroxaban (Xarelto) 15 mg PO DAILY [facility]; Protocol Last Admin: 10/29/18 09:13 Dose: 15 mg Silver Sulfadiazine (Silvadene 1% 20 Gm) 1 ea TOP DAILY [facility] Last Admin: 10/29/18 09:15 Dose: 1 applic Spironolactone (Aldactone) 50 mg PO DAILY [facility] Last Admin: 10/29/18 09:14 Dose: 50 mg Tamsulosin HCl (Flomax) 0.4 mg PO DAILY [facility] Last Admin: 10/29/18 09:14 Dose: 0.4 mg Trimethoprim/Sulfamethoxazole (Bactrim Ss Tab) 1 tab PO DAILY [facility]; Protocol Last Admin: 10/29/18 09:14 Dose: 1 tab Zolpidem Tartrate (Ambien) 5 mg PO HS [facility] Last Admin: 10/28/18 23:50 Dose: 5 mg - Labs Labs: 10/27/18 10:58 10/27/18 10:58 PT 15.0 Seconds (9.8-13.1) H 10/27/18 10:58 INR 1.3 10/27/18 10:58 APTT 25.4 Seconds (25.6-37.1) L 10/27/18 10:58
[2018-10-30] MEDS: Meropenem 500 MG in Sodium Chloride 0.9% 100 ML IVPB SCH ×2 (02:49→13:47)
[2018-10-30 05:58] LABS: ALBUMIN 3.3 g/dL (3.5-5.0)
[2018-10-30] MEDS: Insulin Lispro (humaLOG) 100 Units/ml Inj SC SCH ×4 (06:55→22:09)
[2018-10-30] MEDS: Tmp-Smz 400 mg-80 mg SS Tab PO SCH (09:28)
[2018-10-30] MEDS: Insulin NPH Human 100 Units/ml Inj SC SCH ×2 (09:29→17:25)
[2018-10-30] MEDS: Silver Sulfadiazine 1% Cream (20 gm) TOP SCH (09:35)
[2018-10-30] MEDS: Linezolid 600 mg in D5W 300 ml 600 MG/300 ML BAG IVPB SCH ×2 (09:36→22:12)
--- NOTE | 2018-10-30 10:02 | CP.PCM.PN ---
Subjective - Date & Time of Evaluation Date of Evaluation: 10/30/18 Time of Evaluation: 08:45 - Subjective Subjective: The patient was found resting comfortably in bed. He admits that during the day yesterday he has had volume loss diuresis with intravenous furosemide. Significant pedal edema still persists. His jugular venous pressure was mildly elevated. Inspiratory effort was poor and no rales could be identified at lung bases. Telemetry shows atrial fibrillation at moderate heart rates with occasional premature ventricular beat. An apical systolic murmur of mitral regurgitation is evident. His lab data shows an improvement in his BUN and creatinine at 36 and 1.7 mg percent respectively over his readings at admission The patient is on intravenous antibiotics for persistent foot ulcers on the left great toe stump. The patient will continue to receive 40 mg of furosemide twice a day as well as spironolactone. I have requested a physical therapy evaluation for possible eventual transfer to transitional care unit. His BUN/creatinine and electrolytes will continue to be monitored on his present regimen of vigorous diuresis Objective - Vital Signs/Intake and Output Vital Signs (last 24 hours): Temp Pulse Resp BP Pulse Ox 97.3 F L 87 20 130/74 94 L 10/30/18 08:44 10/30/18 09:28 10/30/18 08:44 10/30/18 09:32 10/30/18 08:44 - Medications Medications: Current Medications Dextrose (Dextrose 50% Inj) 0 ml IV STAT PRN; Protocol PRN Reason: Hypoglycemia Protocol Dextrose (Glutose 15) 0 gm PO ONCE PRN; Protocol PRN Reason: Hypoglycemia Protocol Furosemide (Lasix) 40 mg IVP BID [facility] Last Admin: 10/30/18 09:32 Dose: 40 mg Glucagon (Glucagen Diagnostic Kit) 0 mg IM STAT PRN; Protocol PRN Reason: Hypoglycemia Protocol Meropenem 500 mg/ Sodium (Chloride) 100 mls @ 100 mls/hr IVPB Q12H [facility]; Protocol Last Admin: 10/30/18 02:49 Dose: 100 mls/hr Linezolid (Zyvox 600mg/300ml D5w) 600 mg in 300 mls @ 300 mls/hr IVPB Q12 [facility]; Protocol Last Admin: 10/30/18 09:36 Dose: 300 mls/hr Insulin Human Lispro (Humalog) 0 units SC ACHS [facility]; Protocol Last Admin: 10/30/18 06:55 Dose: 2 units Insulin Human NPH (Humulin N) 20 units SC QPM [facility] Last Admin: 10/29/18 18:18 Dose: 20 units Insulin Human NPH (Humulin N) 10 units SC QAM [facility] Last Admin: 10/30/18 09:29 Dose: 10 units Losartan Potassium (Cozaar) 25 mg PO DAILY [facility] Last Admin: 10/30/18 09:28 Dose: 25 mg Rivaroxaban (Xarelto) 15 mg PO DAILY [facility]; Protocol Last Admin: 10/30/18 09:35 Dose: 15 mg Silver Sulfadiazine (Silvadene 1% 20 Gm) 1 ea TOP DAILY [facility] Last Admin: 10/30/18 09:35 Dose: 1 applic Spironolactone (Aldactone) 50 mg PO DAILY [facility] Last Admin: 10/30/18 09:27 Dose: 50 mg Tamsulosin HCl (Flomax) 0.4 mg PO DAILY [facility] Last Admin: 10/30/18 09:28 Dose: 0.4 mg Trimethoprim/Sulfamethoxazole (Bactrim Ss Tab) 1 tab PO DAILY [facility]; Protocol Last Admin: 10/30/18 09:28 Dose: 1 tab Zolpidem Tartrate (Ambien) 5 mg PO HS [facility] Last Admin: 10/29/18 22:49 Dose: 5 mg - Labs Labs: 10/27/18 10:58 10/30/18 04:40 PT 15.0 Seconds (9.8-13.1) H 10/27/18 10:58 INR 1.3 10/27/18 10:58 APTT 25.4 Seconds (25.6-37.1) L 10/27/18 10:58
--- NOTE | 2018-10-30 10:04 | CP.PCM.PN ---
Subjective - Date & Time of Evaluation Date of Evaluation: 10/30/18 Time of Evaluation: 10:04 - Subjective Subjective: Seen on morning rounds in telemetry. He appears to have done well on the present regimen. There has been no complaint of shortness of breath. Oxygenation has been stable throughout the hospital stay. There has been no complaint of chest pain, hemoptysis or sputum production. On exam there is no dullness on percussion of either hemithorax. Breath sounds are diminished equally in both lungs. No audible wheezes, only scattered dry rales, no bronchial breath sounds. Dependant edema is decreased but still + both LEs. No cyanosis. Peripheral pulses are not palpable in either foot or ankle. Stable respiratory status/COPD. Improved decompensated CHF. Severe PVD both LEs. Type 2 DM on insulin. Objective - Vital Signs/Intake and Output Vital Signs (last 24 hours): Temp Pulse Resp BP Pulse Ox 97.3 F L 87 20 130/74 94 L 10/30/18 08:44 10/30/18 09:28 10/30/18 08:44 10/30/18 09:32 10/30/18 08:44 - Medications Medications: Current Medications Dextrose (Dextrose 50% Inj) 0 ml IV STAT PRN; Protocol PRN Reason: Hypoglycemia Protocol Dextrose (Glutose 15) 0 gm PO ONCE PRN; Protocol PRN Reason: Hypoglycemia Protocol Furosemide (Lasix) 40 mg IVP BID [facility] Last Admin: 10/30/18 09:32 Dose: 40 mg Glucagon (Glucagen Diagnostic Kit) 0 mg IM STAT PRN; Protocol PRN Reason: Hypoglycemia Protocol Meropenem 500 mg/ Sodium (Chloride) 100 mls @ 100 mls/hr IVPB Q12H [facility]; Protocol Last Admin: 10/30/18 02:49 Dose: 100 mls/hr Linezolid (Zyvox 600mg/300ml D5w) 600 mg in 300 mls @ 300 mls/hr IVPB Q12 [facility]; Protocol Last Admin: 10/30/18 09:36 Dose: 300 mls/hr Insulin Human Lispro (Humalog) 0 units SC ACHS [facility]; Protocol Last Admin: 10/30/18 06:55 Dose: 2 units Insulin Human NPH (Humulin N) 20 units SC QPM [facility] Last Admin: 10/29/18 18:18 Dose: 20 units Insulin Human NPH (Humulin N) 10 units SC QAM [facility] Last Admin: 10/30/18 09:29 Dose: 10 units Losartan Potassium (Cozaar) 25 mg PO DAILY [facility] Last Admin: 10/30/18 09:28 Dose: 25 mg Rivaroxaban (Xarelto) 15 mg PO DAILY [facility]; Protocol Last Admin: 10/30/18 09:35 Dose: 15 mg Silver Sulfadiazine (Silvadene 1% 20 Gm) 1 ea TOP DAILY [facility] Last Admin: 10/30/18 09:35 Dose: 1 applic Spironolactone (Aldactone) 50 mg PO DAILY [facility] Last Admin: 10/30/18 09:27 Dose: 50 mg Tamsulosin HCl (Flomax) 0.4 mg PO DAILY [facility] Last Admin: 10/30/18 09:28 Dose: 0.4 mg Trimethoprim/Sulfamethoxazole (Bactrim Ss Tab) 1 tab PO DAILY [facility]; Protocol Last Admin: 10/30/18 09:28 Dose: 1 tab Zolpidem Tartrate (Ambien) 5 mg PO HS [facility] Last Admin: 10/29/18 22:49 Dose: 5 mg - Labs Labs: 10/27/18 10:58 10/30/18 04:40 PT 15.0 Seconds (9.8-13.1) H 10/27/18 10:58 INR 1.3 10/27/18 10:58 APTT 25.4 Seconds (25.6-37.1) L 10/27/18 10:58 Assessment and Plan (1) CAD (coronary artery disease) Status: Chronic (2) COPD (chronic obstructive pulmonary disease) Status: Chronic (3) DM2 (diabetes mellitus, type 2) Status: Chronic (4) Peripheral arterial disease Status: Chronic
[2018-10-30 15:11] LABS: SQUAMOUS EPITHIAL 1 /hpf (0-5); URINE BACTERIA RARE (<OCC); URINE BILIRUBIN NEGATIVE (NEGATIVE); URINE BLOOD NEGATIVE (NEGATIVE); URINE CLARITY CLEAR (Clear); URINE COLOR YELLOW (YELLOW); URINE GLUCOSE (UA) NEG (NEGATIVE); URINE HYALINE CAST 0-2 /hpf (0-2); URINE LEUKOCYTE ESTERASE NEG Leu/uL (Negative); URINE PROTEIN NEGATIVE (NEGATIVE); URINE UROBILINOGEN 0.2-1.0 mg/dL (0.2-1.0)
--- NOTE | 2018-10-30 16:43 | CP.PCM.PN ---
Subjective - Date & Time of Evaluation Date of Evaluation: 10/30/18 Time of Evaluation: 16:40 - Subjective Subjective: I D NOTE AFEBRILE NOT SOB AT REST FOR TCU Objective - Vital Signs/Intake and Output Vital Signs (last 24 hours): Temp Pulse Resp BP Pulse Ox 97.9 F 83 20 122/73 96 10/30/18 16:29 10/30/18 16:29 10/30/18 16:29 10/30/18 16:29 10/30/18 16:29 - Medications Medications: Current Medications Dextrose (Dextrose 50% Inj) 0 ml IV STAT PRN; Protocol PRN Reason: Hypoglycemia Protocol Dextrose (Glutose 15) 0 gm PO ONCE PRN; Protocol PRN Reason: Hypoglycemia Protocol Furosemide (Lasix) 40 mg IVP BID [facility] Last Admin: 10/30/18 09:32 Dose: 40 mg Glucagon (Glucagen Diagnostic Kit) 0 mg IM STAT PRN; Protocol PRN Reason: Hypoglycemia Protocol Meropenem 500 mg/ Sodium (Chloride) 100 mls @ 100 mls/hr IVPB Q12H [facility]; Protocol Last Admin: 10/30/18 13:47 Dose: 100 mls/hr Linezolid (Zyvox 600mg/300ml D5w) 600 mg in 300 mls @ 300 mls/hr IVPB Q12 [facility]; Protocol Last Admin: 10/30/18 09:36 Dose: 300 mls/hr Insulin Human Lispro (Humalog) 0 units SC ACHS [facility]; Protocol Last Admin: 10/30/18 13:10 Dose: 6 units Insulin Human NPH (Humulin N) 20 units SC QPM [facility] Last Admin: 10/29/18 18:18 Dose: 20 units Insulin Human NPH (Humulin N) 10 units SC QAM [facility] Last Admin: 10/30/18 09:29 Dose: 10 units Losartan Potassium (Cozaar) 25 mg PO DAILY [facility] Last Admin: 10/30/18 09:28 Dose: 25 mg Rivaroxaban (Xarelto) 15 mg PO DAILY [facility]; Protocol Last Admin: 10/30/18 09:35 Dose: 15 mg Silver Sulfadiazine (Silvadene 1% 20 Gm) 1 ea TOP DAILY [facility] Last Admin: 10/30/18 09:35 Dose: 1 applic Spironolactone (Aldactone) 50 mg PO DAILY [facility] Last Admin: 10/30/18 09:27 Dose: 50 mg Tamsulosin HCl (Flomax) 0.4 mg PO DAILY [facility] Last Admin: 10/30/18 09:28 Dose: 0.4 mg Trimethoprim/Sulfamethoxazole (Bactrim Ss Tab) 1 tab PO DAILY [facility]; Protocol Last Admin: 10/30/18 09:28 Dose: 1 tab Zolpidem Tartrate (Ambien) 5 mg PO HS [facility] Last Admin: 10/29/18 22:49 Dose: 5 mg - Labs Labs: 10/27/18 10:58 10/30/18 04:40 PT 15.0 Seconds (9.8-13.1) H 10/27/18 10:58 INR 1.3 10/27/18 10:58 APTT 25.4 Seconds (25.6-37.1) L 10/27/18 10:58
[2018-10-31] MEDS: Meropenem 500 MG in Sodium Chloride 0.9% 100 ML IVPB SCH ×2 (02:57→14:21)
[2018-10-31 06:10] LABS: ALBUMIN 3.4 g/dL (3.5-5.0); CALCIUM 9.1 mg/dL (8.4-10.2)
[2018-10-31] MEDS: Linezolid 600 mg in D5W 300 ml 600 MG/300 ML BAG IVPB SCH (08:55)
[2018-10-31] MEDS: Tmp-Smz 400 mg-80 mg SS Tab PO SCH (08:59)
[2018-10-31] MEDS: Silver Sulfadiazine 1% Cream (20 gm) TOP SCH (08:59)
[2018-10-31] MEDS: Insulin Lispro (humaLOG) 100 Units/ml Inj SC SCH ×2 (09:02→11:58)
[2018-10-31] MEDS: Insulin NPH Human 100 Units/ml Inj SC SCH (09:02)
--- NOTE | 2018-10-31 09:48 | CP.PCM.PN ---
Subjective - Date & Time of Evaluation Date of Evaluation: 10/31/18 Time of Evaluation: 09:48 - Subjective Subjective: Patient was seen on rounds in telemetry. Lying in bed, semi-supine, in no distress. Awake and alert, well oriented. No complaints of SOB or orthopnea. Vital signs have been stable. Still has + dependant edema of both LEs, no cyanosis. ]Neck is supple and trachea midline. Breath sounds are diminished bilaterally w/o wheeze. Few scattered rhonchi and dry rales in dependant regions. From a respiratory standpoint he remains stable. Objective - Vital Signs/Intake and Output Vital Signs (last 24 hours): Temp Pulse Resp BP Pulse Ox 97.9 F 92 H 18 124/74 98 10/31/18 07:52 10/31/18 08:57 10/31/18 07:52 10/31/18 08:57 10/31/18 07:52 Intake and Output: 10/30/18 10/31/18 23:59 11:59 Intake Total 1360 Balance 1360 - Medications Medications: Current Medications Dextrose (Dextrose 50% Inj) 0 ml IV STAT PRN; Protocol PRN Reason: Hypoglycemia Protocol Dextrose (Glutose 15) 0 gm PO ONCE PRN; Protocol PRN Reason: Hypoglycemia Protocol Furosemide (Lasix) 40 mg IVP BID [facility] Last Admin: 10/31/18 08:56 Dose: 40 mg Glucagon (Glucagen Diagnostic Kit) 0 mg IM STAT PRN; Protocol PRN Reason: Hypoglycemia Protocol Meropenem 500 mg/ Sodium (Chloride) 100 mls @ 100 mls/hr IVPB Q12H [facility]; Protocol Last Admin: 10/31/18 02:57 Dose: 100 mls/hr Linezolid (Zyvox 600mg/300ml D5w) 600 mg in 300 mls @ 300 mls/hr IVPB Q12 [facility]; Protocol Last Admin: 10/31/18 08:55 Dose: 300 mls/hr Insulin Human Lispro (Humalog) 0 units SC ACHS [facility]; Protocol Last Admin: 10/31/18 09:02 Dose: 2 units Insulin Human NPH (Humulin N) 20 units SC QPM [facility] Last Admin: 10/30/18 17:25 Dose: 20 units Insulin Human NPH (Humulin N) 10 units SC QAM [facility] Last Admin: 10/31/18 09:02 Dose: 10 units Losartan Potassium (Cozaar) 25 mg PO DAILY [facility] Last Admin: 10/31/18 08:57 Dose: 25 mg Rivaroxaban (Xarelto) 15 mg PO DAILY [facility]; Protocol Last Admin: 10/31/18 08:56 Dose: 15 mg Silver Sulfadiazine (Silvadene 1% 20 Gm) 1 ea TOP DAILY [facility] Last Admin: 10/31/18 08:59 Dose: 1 applic Spironolactone (Aldactone) 50 mg PO DAILY [facility] Last Admin: 10/31/18 08:59 Dose: 50 mg Tamsulosin HCl (Flomax) 0.4 mg PO DAILY [facility] Last Admin: 10/31/18 08:57 Dose: 0.4 mg Trimethoprim/Sulfamethoxazole (Bactrim Ss Tab) 1 tab PO DAILY [facility]; Protocol Last Admin: 10/31/18 08:59 Dose: 1 tab - Labs Labs: 10/27/18 10:58 10/31/18 04:50 PT 15.0 Seconds (9.8-13.1) H 10/27/18 10:58 INR 1.3 10/27/18 10:58 APTT 25.4 Seconds (25.6-37.1) L 10/27/18 10:58 Assessment and Plan (1) CAD (coronary artery disease) Status: Chronic (2) COPD (chronic obstructive pulmonary disease) Status: Chronic (3) DM2 (diabetes mellitus, type 2) Status: Chronic (4) Peripheral arterial disease Status: Chronic
--- NOTE | 2018-10-31 10:44 | CP.PCM.PN ---
Subjective - Date & Time of Evaluation Date of Evaluation: 10/31/18 Time of Evaluation: 09:30 - Subjective Subjective: The patient reports having diuresed profusely with intravenous furosemide. His pedal edema is significantly reduced but still present. Jugular venous pressure is very mildly elevated and there are no rales. An apical systolic murmur of mitral regurgitation is audible. Telemetry shows persistent atrial fibrillation with heart rates mostly between 80 and 90 bpm. His blood pressure was 134/80 mmHg. His labs show a BUN and creatinine of 33 and 1.7 mg percent respectively with normal electrolytes. The patient has walked a few steps yesterday with physical therapist but feels extremely unsure of himself. The patient would benefit by going to a transitional care unit prior to his return home. Objective - Vital Signs/Intake and Output Vital Signs (last 24 hours): Temp Pulse Resp BP Pulse Ox 97.9 F 92 H 18 124/74 98 10/31/18 07:52 10/31/18 08:57 10/31/18 07:52 10/31/18 08:57 10/31/18 07:52 - Medications Medications: Current Medications Dextrose (Dextrose 50% Inj) 0 ml IV STAT PRN; Protocol PRN Reason: Hypoglycemia Protocol Dextrose (Glutose 15) 0 gm PO ONCE PRN; Protocol PRN Reason: Hypoglycemia Protocol Furosemide (Lasix) 40 mg IVP BID [facility] Last Admin: 10/31/18 08:56 Dose: 40 mg Glucagon (Glucagen Diagnostic Kit) 0 mg IM STAT PRN; Protocol PRN Reason: Hypoglycemia Protocol Meropenem 500 mg/ Sodium (Chloride) 100 mls @ 100 mls/hr IVPB Q12H [facility]; Protocol Last Admin: 10/31/18 02:57 Dose: 100 mls/hr Linezolid (Zyvox 600mg/300ml D5w) 600 mg in 300 mls @ 300 mls/hr IVPB Q12 [facility]; Protocol Last Admin: 10/31/18 08:55 Dose: 300 mls/hr Insulin Human Lispro (Humalog) 0 units SC ACHS [facility]; Protocol Last Admin: 10/31/18 09:02 Dose: 2 units Insulin Human NPH (Humulin N) 20 units SC QPM [facility] Last Admin: 10/30/18 17:25 Dose: 20 units Insulin Human NPH (Humulin N) 10 units SC QAM [facility] Last Admin: 10/31/18 09:02 Dose: 10 units Losartan Potassium (Cozaar) 25 mg PO DAILY [facility] Last Admin: 10/31/18 08:57 Dose: 25 mg Rivaroxaban (Xarelto) 15 mg PO DAILY [facility]; Protocol Last Admin: 10/31/18 08:56 Dose: 15 mg Silver Sulfadiazine (Silvadene 1% 20 Gm) 1 ea TOP DAILY [facility] Last Admin: 10/31/18 08:59 Dose: 1 applic Spironolactone (Aldactone) 50 mg PO DAILY [facility] Last Admin: 10/31/18 08:59 Dose: 50 mg Tamsulosin HCl (Flomax) 0.4 mg PO DAILY [facility] Last Admin: 10/31/18 08:57 Dose: 0.4 mg Trimethoprim/Sulfamethoxazole (Bactrim Ss Tab) 1 tab PO DAILY [facility]; Protocol Last Admin: 10/31/18 08:59 Dose: 1 tab - Labs Labs: 10/27/18 10:58 10/31/18 04:50 PT 15.0 Seconds (9.8-13.1) H 10/27/18 10:58 INR 1.3 10/27/18 10:58 APTT 25.4 Seconds (25.6-37.1) L 10/27/18 10:58
[2018-10-31 15:45] VITALS: BP 133/70; PULSE 76; RESP 20; TEMP 98.4; O2SAT 98
== END 2018-10-31 16:00 | DRG 291 ==
LOC: H.ER 10:22 → H.ERHOLD 10:31 → H.MEDSURG1 15:05 → H.TEL 18:55
PROVIDERS: ADMIT Internal Medicine Cardiovascular Disease; ATTEND Internal Medicine Cardiovascular Disease
DX: I13.0 Hypertensive heart and chronic kidney disease with heart failure and stage 1 through stage 4 chronic kidney disease, or unspecified chronic kidney disease (principal); I50.23 Acute on chronic systolic (congestive) heart failure; I48.1 Persistent atrial fibrillation; E11.22 Type 2 diabetes mellitus with diabetic chronic kidney disease; E11.51 Type 2 diabetes mellitus with diabetic peripheral angiopathy without gangrene; E11.621 Type 2 diabetes mellitus with foot ulcer; E78.00 Pure hypercholesterolemia, unspecified; I25.10 Atherosclerotic heart disease of native coronary artery without angina pectoris; I25.2 Old myocardial infarction; I34.0 Nonrheumatic mitral (valve) insufficiency; I48.2 Chronic atrial fibrillation; I49.3 Ventricular premature depolarization; J43.9 Emphysema, unspecified; L97.509 Non-pressure chronic ulcer of other part of unspecified foot with unspecified severity; N18.9 Chronic kidney disease, unspecified; N31.9 Neuromuscular dysfunction of bladder, unspecified; N40.0 Benign prostatic hyperplasia without lower urinary tract symptoms; R29.6 Repeated falls; Z79.01 Long term (current) use of anticoagulants; Z79.4 Long term (current) use of insulin; Z86.73 Personal history of transient ischemic attack (TIA), and cerebral infarction without residual deficits; Z87.01 Personal history of pneumonia (recurrent); Z87.440 Personal history of urinary (tract) infections; Z87.891 Personal history of nicotine dependence; Z89.412 Acquired absence of left great toe; Z89.429 Acquired absence of other toe(s), unspecified side; Z95.1 Presence of aortocoronary bypass graft; Z95.5 Presence of coronary angioplasty implant and graft; D64.9 Anemia, unspecified; M19.90 Unspecified osteoarthritis, unspecified site; Z79.899 Other long term (current) drug therapy; R26.81 Unsteadiness on feet

== ENCOUNTER 2018-10-31 13:54 | Inpatient (IN) | payer MEDICARE ==
[2018-10-31 16:19] VITALS: BMI 30.2
[2018-10-31] MEDS ORDERED: Dextrose 50% SYRINGE Inj (50 ml) IV PRN (17:59)
[2018-10-31] MEDS ORDERED: Glucagon Recombinant 1 mg Inj IM PRN (17:59)
[2018-10-31] MEDS: Insulin NPH Human 100 Units/ml Inj SC SCH (18:44)
[2018-10-31] MEDS: Meropenem 500 MG in Sodium Chloride 0.9% 100 ML IVPB SCH (18:45)
[2018-10-31] MEDS ORDERED: Patient's Own Med (Meropenem 500 Mg In Ns [Merrem Iv 500 Mg/Ns 50 Ml] 500 MG) IV SCH (21:00)
[2018-10-31] MEDS ORDERED: NS IV SCH (21:00)
[2018-10-31] MEDS ORDERED: Linezolid 600 mg in D5W 300 ml 600 MG/300 ML BAG IVPB SCH (21:00)
[2018-10-31] MEDS ORDERED: LINEZOLID IV SCH (21:00)
[2018-10-31] MEDS: Linezolid 600 mg in D5W 300 ml 600 MG/300 ML BAG IVPB SCH (23:02)
[2018-10-31] MEDS: Insulin Lispro (humaLOG) 100 Units/ml Inj SC SCH (23:04)
[2018-11-01] MEDS: Meropenem 500 MG in Sodium Chloride 0.9% 100 ML IVPB SCH ×2 (06:15→17:12)
[2018-11-01 06:40] LABS: HEMOGLOBIN 10.7 g/dL (12.0-18.0); MEAN CELL VOLUME 84.4 fl (80.0-94.0); RBC 3.94 Mil/uL (4.40-5.90); RED CELL DISTRIBUTION WIDTH 17.8 % (11.5-14.5); WHITE BLOOD COUNT 11.9 K/uL (4.8-10.8)
[2018-11-01] MEDS: Insulin Lispro (humaLOG) 100 Units/ml Inj SC SCH ×4 (07:15→21:26)
[2018-11-01 08:01] LABS: CALCIUM 9.1 mg/dL (8.4-10.2)
[2018-11-01] MEDS: Silver Sulfadiazine 1% Cream (20 gm) TOP SCH (08:43)
[2018-11-01] MEDS: Insulin NPH Human 100 Units/ml Inj SC SCH ×2 (08:45→17:16)
[2018-11-01] MEDS: Linezolid 600 mg in D5W 300 ml 600 MG/300 ML BAG IVPB SCH ×2 (08:48→21:25)
[2018-11-01] MEDS ORDERED: Tmp-Smz 400 mg-80 mg SS Tab PO SCH (09:00)
--- NOTE | 2018-11-01 10:31 | CP.PCM.HP ---
History of Present Illness - History of Present Illness History of Present Illness: This 78-year-old -[place] male who has hypertension and diabetes mellitus and coronary artery disease which required coronary bypass graft surgery approximately 12 years back and has required subsequent coronary stenting, came into the hospital with severe congestive cardiac failure for which she was treated in the acute care section of the hospital. With this congestive cardiac failure significantly resolving he has been transferred to the transitional care unit before returning home. The caridad ent was recently hospitalized with similar diagnosis and was sent home prematurely following which she had multiple falls at home. The patient has had atrial fibrillation and significant mitral regurgitation and severely depressed left ventricular systolic function. There has been a history of cerebrovascular accident more than 15 years back. He also has BPH and had undergone TURP and takes Flomax daily. He has also been chronically anticoagulated because of atrial fibrillation. He has required amputation of the great toe on left foot couple of years back for severe PAD. He has had superficial ulcers on left leg which is being treated. Workup recently revealed severe arterial insufficiency on the left side. The patient also has stage II CKD. Physical examination shows an elderly -[place] male who is alert awake coherent afebrile. He breathes comfortably while propped up in bed. At 16 breaths/min and can carry on a conversation. His heart rate was 80 bpm irregularly irregular with a blood pressure of 132/70 mmHg. His jugular venous pressure was mildly elevated there was persistent edema over both lower extremities. There were superficial ulcers on the left foot which have been appropriately bandaged. Pedal pulses were not palpable. There were no carotid bruits. Scar of sternotomy was evident on his chest. His extremities were warm and nailbeds were pink. There were notes clubbing or cyanosis. The apex was in the 6 space slightly heaving in character. Along apical systolic murmur of mitral regurgitation was present few basal rales were audible. His abdomen was soft liver and spleen are not palpable. His electrocardiogram few days back on admission had shown atrial fibrillation with evidence of an old inferior wall myocardial infarction. The lab data shows a creatinine of 1.6 mg percent which is an improvement over his recent creatinine of 1.7 which was not improvement over her creatinine of 2 mg percent at admission 5 days back. His electrolytes were normal. There was mild anemia. Impression: Congestive cardiac failure which is left ventricular systolic and chronic. Atrial fibrillation. Stable coronary artery disease. Status post coronary bypass graft surgery and prior myocardial infarction. History of CVA. PAD. Status post amputation of left great toe. BPH. Status post TURP. CKD stage II. The patient will continue to receive intravenous diuresis to resolve volume overload. His BUN/creatinine will be monitored. He is receiving intravenous antibiotics to resolve the persistent ulcers on his left foot and will even tually require revascularization of his left lower extremity circulation. Present on Admission - Present on Admission Any Indicators Present on Admission: No Past Patient History - Tetanus Immunizations Tetanus Immunization: Unknown - Past Medical History & Family History Past Medical History?: Yes - Past Social History Smoking Status: Former Smoker - CARDIAC Hx Atrial Fibrillation: Yes Hx Cardia Arrhythmia: Yes Hx Congestive Heart Failure: Yes Hx Hypercholesterolemia: Yes Hx Hypertension: Yes Hx Mitral Valve Prolapse: No Hx Pacemaker: No Hx Peripheral Edema: Yes - PULMONARY Hx Asthma: No Hx Bronchitis: No Hx Chronic Obstructive Pulmonary Disease (COPD): Yes Hx Emphysema: No Hx Pneumonia: Yes Hx Pulmonary Embolism: No Hx Sleep Apnea: No - NEUROLOGICAL Hx Alzheimer's Disease: No Hx Dementia: No Hx Migraine: No Hx Multiple Sclerosis: No Hx Parkinson's Disease: No Hx Seizures: No Hx Transient Ischemic Attacks (TIA): No - HEENT Hx HEENT Problems: No - RENAL Hx Chronic Kidney Disease: No Hx Kidney Stones: No - ENDOCRINE/METABOLIC Hx Hyperthyroidism: No Hx Hypothyroidism: No - HEMATOLOGICAL/ONCOLOGICAL Hx Anemia: No Hx Human Immunodeficiency Virus (HIV): No Hx Sickle Cell Disease: No - INTEGUMENTARY Hx Dermatological Problems: No - MUSCULOSKELETAL/RHEUMATOLOGICAL Hx Arthritis: Yes Hx Falls: Yes Hx Fractures: No Hx Osteoporosis: No Hx Rheumatoid Arthritis: No - GASTROINTESTINAL Hx Crohn's Disease: No Hx Diverticulitis: No Hx Gall Bladder Disease: No Hx Gastritis: No Hx Pancreatitis: No - GENITOURINARY/GYNECOLOGICAL Hx Sexually Transmitted Disorders: No - PSYCHIATRIC Hx Anxiety: No Hx Bipolar Disorder: No Hx Depression: No Hx Paranoia: No Hx Post Traumatic Stress Disorder: No Hx Schizophrenia: No Hx Substance Use: No - SURGICAL HISTORY Hx Appendectomy: No Hx Carotid Endarterectomy: No Hx Cholecystectomy: No Hx Coronary Artery Bypass Graft: Yes (5x) Hx Coronary Stent: Yes Hx Tonsillectomy: No - ANESTHESIA Hx Anesthesia: Yes Hx Anesthesia Reactions: No Hx Malignant Hyperthermia: No Meds Allergies/Adverse Reactions: Allergies Allergy/AdvReac Type Severity Reaction Status Date / Time No Known Allergies Allergy Verified 10/31/18 16:16 Results - Vital Signs Recent Vital Signs: Last Vital Signs Temp 99.4 F 11/01/18 07:53 Pulse 96 H 11/01/18 08:44 Resp 18 11/01/18 07:53 BP 115/69 11/01/18 08:50 Pulse Ox 96 11/01/18 07:53 - Labs Result Diagrams: 11/01/18 05:50 11/01/18 05:50 Labs: Laboratory Results - last 24 hr 10/31/18 11/01/18 11/01/18 20:47 05:38 05:50 WBC 11.9 H D RBC 3.94 L Hgb 10.7 L Hct 33.3 L MCV 84.4 MCH 27.0 MCHC 32.0 L RDW 17.8 H Plt Count 413 H Sodium Potassium Chloride Carbon Dioxide Anion Gap BUN Creatinine Est GFR ( Amer) Est GFR (Non-Af Amer) POC Glucose (mg/dL) 238 H 142 H Random Glucose Calcium 11/01/18 05:50 WBC RBC Hgb Hct MCV MCH MCHC RDW Plt Count Sodium 135 Potassium 4.4 Chloride 99 Carbon Dioxide 29 Anion Gap 11 BUN 26 H Creatinine 1.6 H Est GFR ( Amer) 51 Est GFR (Non-Af Amer) 42 POC Glucose (mg/dL) Random Glucose 128 H Calcium 9.1
--- NOTE | 2018-11-01 10:57 | CP.PCM.CON ---
History of Present Illness - History of Present Illness History of Present Illness: This 78-year-old male who is a former cigarette smoker with a history of chronic obstructive pulmonary disease is well known to me from the outpatient setting as well as prior hospitalizations. He had recently been hospitalized and di scharged home but was having repeated falls at home prompting return to the emergency department and readmission to acute medicine. He does offer a complaint of dyspnea on exertion but states that his breathing is comfortable at rest and he offers no complaint of chest pain or hemoptysis. He does have occasional cough which is usually nonproductive. He was treated and subsequently discharged to transitional care because of general deconditioning. Past Patient History - Tetanus Immunizations Tetanus Immunization: Unknown - Past Medical History & Family History Past Medical History?: Yes - Past Social History Smoking Status: Former Smoker Chewing Tobacco Use: No Cigar Use: No Alcohol: Social Drugs: Denies Home Situation {Lives}: With Family - CARDIAC Hx Atrial Fibrillation: Yes Hx Cardia Arrhythmia: Yes Hx Congestive Heart Failure: Yes Hx Hypercholesterolemia: Yes Hx Hypertension: Yes Hx Peripheral Edema: Yes Hx Peripheral Vascular Disease: Yes - PULMONARY Hx Bronchitis: Yes Hx Chronic Obstructive Pulmonary Disease (COPD): Yes Hx Emphysema: Yes Hx Pneumonia: Yes - NEUROLOGICAL HX Cerebrovascular Accident: Yes (Resolved without permanent sequelae) - HEENT Hx HEENT Problems: No - RENAL Hx Chronic Kidney Disease: Yes Hx Neurogenic Bladder: Yes - ENDOCRINE/METABOLIC Hx Diabetes Mellitus Type 2: Yes - HEMATOLOGICAL/ONCOLOGICAL Hx Anemia: Yes Hx Human Immunodeficiency Virus (HIV): No Hx Sickle Cell Disease: No - INTEGUMENTARY Hx Dermatological Problems: No - MUSCULOSKELETAL/RHEUMATOLOGICAL Hx Arthritis: Yes Hx Falls: Yes Hx Unsteady Gait: Yes - GASTROINTESTINAL Hx Gastrointestinal Disorders: No - GENITOURINARY/GYNECOLOGICAL Hx Prostate Problems: Yes Hx Sexually Transmitted Disorders: No Hx Urinary Tract Infection: Yes - PSYCHIATRIC Hx Psychophysiologic Disorder: No Hx Substance Use: No - SURGICAL HISTORY Hx Amputation: Yes (Left great toe, partial) Hx Coronary Artery Bypass Graft: Yes (5x) Hx Coronary Stent: Yes - ANESTHESIA Hx Anesthesia: Yes Hx Anesthesia Reactions: No Hx Malignant Hyperthermia: No Meds Allergies/Adverse Reactions: Allergies Allergy/AdvReac Type Severity Reaction Status Date / Time No Known Allergies Allergy Verified 10/31/18 16:16 - Medications Medications: Current Medications Dextrose (Dextrose 50% Inj) 0 ml IV STAT PRN; Protocol PRN Reason: Hypoglycemia Protocol Dextrose (Glutose 15) 0 gm PO ONCE PRN; Protocol PRN Reason: Hypoglycemia Protocol Furosemide (Lasix) 40 mg IVP BID [facility] Last Admin: 11/01/18 08:50 Dose: 40 mg Glucagon (Glucagen Diagnostic Kit) 0 mg IM STAT PRN; Protocol PRN Reason: Hypoglycemia Protocol Linezolid (Zyvox 600mg/300ml D5w) 600 mg in 300 mls @ 300 mls/hr IVPB Q12 [facility] Last Admin: 11/01/18 08:48 Dose: 300 mls/hr Meropenem 500 mg/ Sodium (Chloride) 100 mls @ 100 mls/hr IVPB Q12H [facility] Last Admin: 11/01/18 06:15 Dose: 100 mls/hr Insulin Human Lispro (Humalog) 0 units SC ACHS [facility]; Protocol Last Admin: 11/01/18 07:15 Dose: Not Given Insulin Human NPH (Humulin N) 20 units SC QPM [facility] Last Admin: 10/31/18 18:44 Dose: 20 units Insulin Human NPH (Humulin N) 10 units SC QAM [facility] Last Admin: 11/01/18 08:45 Dose: 10 unit Losartan Potassium (Cozaar) 25 mg PO DAILY [facility] Last Admin: 11/01/18 08:44 Dose: 25 mg Rivaroxaban (Xarelto) 15 mg PO DAILY [facility]; Protocol Last Admin: 11/01/18 08:44 Dose: 15 mg Silver Sulfadiazine (Silvadene 1% 20 Gm) 1 ea TOP DAILY [facility] Last Admin: 11/01/18 08:43 Dose: 1 applic Spironolactone (Aldactone) 50 mg PO DAILY [facility] Last Admin: 11/01/18 08:44 Dose: 50 mg Tamsulosin HCl (Flomax) 0.4 mg PO DAILY [facility] Last Admin: 11/01/18 08:44 Dose: 0.4 mg Trimethoprim/Sulfamethoxazole (Bactrim Ss Tab) 1 tab PO DAILY [facility]; Protocol Last Admin: 11/01/18 08:44 Dose: 1 tab Zolpidem Tartrate (Ambien) 10 mg PO HS [facility] Last Admin: 10/31/18 23:08 Dose: 10 mg Physical Exam - Additional Findings Additional findings: Elderly male who appears fatigued. Well-developed and well-nourished. Memory appears intact and speech is fluent although he appears to become confuse d at times. Dependent edema both lower extremities 2+. Partial amputation of the left great toe. Pharynx is pink and moist without exudate. Conjunctivae are pink and there is no scleral icterus. Healed thyroidectomy scar is noted. Neck is supple and trachea is midline. No dullness on chest percussion there. Breath sounds are diminished bilaterally with scattered dry rales in the lower lobes. No audible wheezes or bronchial breathing. Occasional rhonchi in dependent regions. Heart sounds are distant rhythm is irregular. The abdomen is soft and nontender with positive bowel sounds. Results - Vital Signs Recent Vital Signs: Last Vital Signs Temp 99.4 F 11/01/18 07:53 Pulse 96 H 11/01/18 08:44 Resp 18 11/01/18 07:53 BP 115/69 11/01/18 08:50 Pulse Ox 96 11/01/18 07:53 - Labs Result Diagrams: 11/03/18 05:45 11/07/18 06:15 Labs: Laboratory Results - last 24 hr 10/31/18 11/01/18 11/01/18 20:47 05:38 05:50 WBC 11.9 H D RBC 3.94 L Hgb 10.7 L Hct 33.3 L MCV 84.4 MCH 27.0 MCHC 32.0 L RDW 17.8 H Plt Count 413 H Sodium Potassium Chloride Carbon Dioxide Anion Gap BUN Creatinine Est GFR ( Amer) Est GFR (Non-Af Amer) POC Glucose (mg/dL) 238 H 142 H Random Glucose Calcium 11/01/18 05:50 WBC RBC Hgb Hct MCV MCH MCHC RDW Plt Count Sodium 135 Potassium 4.4 Chloride 99 Carbon Dioxide 29 Anion Gap 11 BUN 26 H Creatinine 1.6 H Est GFR ( Amer) 51 Est GFR (Non-Af Amer) 42 POC Glucose (mg/dL) Random Glucose 128 H Calcium 9.1 Assessment & Plan (1) Debilitated patient Status: Chronic Priority: High (2) CAD (coronary artery disease) Status: Chronic Priority: High (3) COPD (chronic obstructive pulmonary disease) Status: Chronic Priority: High (4) DM2 (diabetes mellitus, type 2) Status: Chronic Priority: High (5) Peripheral arterial disease Status: Chronic Priority: High - Assessment and Plan (Free Text) Plan: Continue current medical regimen and physical therapy as tolerated. - Date & Time Date: 11/01/18 Time: 10:57
[2018-11-01] MEDS: Multivitamin Vitamin B Complex (Nephro-Vite) Tab PO SCH (13:26)
[2018-11-01 16:48] LABS: HEMOGLOBIN 10.7 g/dL (12.0-18.0); MEAN CELL VOLUME 84.4 fl (80.0-94.0); MEAN CORPUSCULAR HEMOGLOBIN 26.5 pg (27.0-31.0); MEAN CORPUSCULAR HGB CONC 31.4 g/dL (33.0-37.0); RBC 4.04 Mil/uL (4.40-5.90); RED CELL DISTRIBUTION WIDTH 18.2 % (11.5-14.5); WHITE BLOOD COUNT 15.4 K/uL (4.8-10.8)
--- NOTE | 2018-11-01 17:01 | CP.PCM.CON ---
History of Present Illness - History of Present Illness History of Present Illness: Podiatry consult note for Dr. Brown 78M seen and evaluated at bedside for left hallux wound. Patient states that he follows up with Dr. Brown regularly for wound care and most recently saw him at his office on 10/18. He denies any new complaints with his ulcers. Denies any new drainage, malodor, erythema, pain or other clinical signs of infection. He is AAO x 3 and NAD at time of visit. Denies any further pedal complaints at this time. States that nikhil cavanaugh was admitted again due to multiple falls at home because his knees kept giving up on him. PMH: CHF, Cardiac bypass (x5 per patient), afib, peripheral artery disease, HTN, DM, dyslipidemia, enlarged prostate, COPD Surg: cardiac bypass, thyroidectomy, amputation of 2nd toe of L foot; TURP Famhx: none Soc: Denies smoking or illicit drugs. Reports social alcohol, not significant to quantify. Rx: on med rec NKDA Past Patient History - Tetanus Immunizations Tetanus Immunization: Unknown - Past Medical History & Family History Past Medical History?: Yes - Past Social History Smoking Status: Former Smoker - CARDIAC Hx Atrial Fibrillation: Yes Hx Cardia Arrhythmia: Yes Hx Congestive Heart Failure: Yes Hx Hypercholesterolemia: Yes Hx Hypertension: Yes Hx Mitral Valve Prolapse: No Hx Pacemaker: No Hx Peripheral Edema: Yes - PULMONARY Hx Asthma: No Hx Bronchitis: No Hx Chronic Obstructive Pulmonary Disease (COPD): Yes Hx Emphysema: No Hx Pneumonia: Yes Hx Pulmonary Embolism: No Hx Sleep Apnea: No - NEUROLOGICAL Hx Alzheimer's Disease: No Hx Dementia: No Hx Migraine: No Hx Multiple Sclerosis: No Hx Parkinson's Disease: No Hx Seizures: No Hx Transient Ischemic Attacks (TIA): No - HEENT Hx HEENT Problems: No - RENAL Hx Chronic Kidney Disease: No Hx Kidney Stones: No - ENDOCRINE/METABOLIC Hx Hyperthyroidism: No Hx Hypothyroidism: No - HEMATOLOGICAL/ONCOLOGICAL Hx Anemia: No Hx Human Immunodeficiency Virus (HIV): No Hx Sickle Cell Disease: No - INTEGUMENTARY Hx Dermatological Problems: No - MUSCULOSKELETAL/RHEUMATOLOGICAL Hx Arthritis: Yes Hx Falls: Yes Hx Fractures: No Hx Osteoporosis: No Hx Rheumatoid Arthritis: No - GASTROINTESTINAL Hx Crohn's Disease: No Hx Diverticulitis: No Hx Gall Bladder Disease: No Hx Gastritis: No Hx Pancreatitis: No - GENITOURINARY/GYNECOLOGICAL Hx Sexually Transmitted Disorders: No - PSYCHIATRIC Hx Anxiety: No Hx Bipolar Disorder: No Hx Depression: No Hx Paranoia: No Hx Post Traumatic Stress Disorder: No Hx Schizophrenia: No Hx Substance Use: No - SURGICAL HISTORY Hx Appendectomy: No Hx Carotid Endarterectomy: No Hx Cholecystectomy: No Hx Coronary Artery Bypass Graft: Yes (5x) Hx Coronary Stent: Yes Hx Tonsillectomy: No - ANESTHESIA Hx Anesthesia: Yes Hx Anesthesia Reactions: No Hx Malignant Hyperthermia: No Meds Allergies/Adverse Reactions: Allergies Allergy/AdvReac Type Severity Reaction Status Date / Time No Known Allergies Allergy Verified 10/31/18 16:16 - Medications Medications: Current Medications Dextrose (Dextrose 50% Inj) 0 ml IV STAT PRN; Protocol PRN Reason: Hypoglycemia Protocol Dextrose (Glutose 15) 0 gm PO ONCE PRN; Protocol PRN Reason: Hypoglycemia Protocol Furosemide (Lasix) 40 mg IVP BID [facility] Last Admin: 11/01/18 16:19 Dose: 40 mg Glucagon (Glucagen Diagnostic Kit) 0 mg IM STAT PRN; Protocol PRN Reason: Hypoglycemia Protocol Linezolid (Zyvox 600mg/300ml D5w) 600 mg in 300 mls @ 300 mls/hr IVPB Q12 [facility] Last Admin: 11/01/18 08:48 Dose: 300 mls/hr Meropenem 500 mg/ Sodium (Chloride) 100 mls @ 100 mls/hr IVPB Q12H [facility] Last Admin: 11/01/18 06:15 Dose: 100 mls/hr Insulin Human Lispro (Humalog) 0 units SC ACHS [facility]; Protocol Last Admin: 11/01/18 16:15 Dose: 3 unit Insulin Human NPH (Humulin N) 20 units SC QPM [facility] Last Admin: 10/31/18 18:44 Dose: 20 units Insulin Human NPH (Humulin N) 10 units SC QAM [facility] Last Admin: 11/01/18 08:45 Dose: 10 unit Losartan Potassium (Cozaar) 25 mg PO DAILY [facility] Last Admin: 11/01/18 08:44 Dose: 25 mg Rivaroxaban (Xarelto) 15 mg PO DAILY [facility]; Protocol Last Admin: 11/01/18 08:44 Dose: 15 mg Silver Sulfadiazine (Silvadene 1% 20 Gm) 1 ea TOP DAILY [facility] Last Admin: 11/01/18 08:43 Dose: 1 applic Spironolactone (Aldactone) 50 mg PO DAILY [facility] Last Admin: 11/01/18 08:44 Dose: 50 mg Tamsulosin HCl (Flomax) 0.4 mg PO DAILY [facility] Last Admin: 11/01/18 08:44 Dose: 0.4 mg Trimethoprim/Sulfamethoxazole (Bactrim Ss Tab) 1 tab PO DAILY [facility]; Protocol Last Admin: 11/01/18 08:44 Dose: 1 tab Vitamin B Complex/Vit C/Folic Acid (Nephro-Hyacinth) 1 tab PO DAILY [facility] Last Admin: 11/01/18 13:26 Dose: 1 tab Zolpidem Tartrate (Ambien) 10 mg PO HS [facility] Last Admin: 10/31/18 23:08 Dose: 10 mg Physical Exam - Constitutional Appears: Well, Non-toxic - Head Exam Head Exam: ATRAUMATIC, NORMOCEPHALIC - Eye Exam Eye Exam: Normal appearance - ENT Exam ENT Exam: Mucous Membranes Moist - Respiratory Exam Respiratory Exam: NORMAL BREATHING PATTERN - Cardiovascular Exam Cardiovascular Exam: REGULAR RHYTHM - Extremities Exam Additional comments: LE focused exam: Vasc: DP/PT pulses non-palpable b/l. Skin temperature warm to warm from proximal to distal. CFT > 3 seconds to all digits. Minimal edema noted to b/l hallux Neuro: Epicritic and protective sensation grossly diminished b/l Derm: no open lesions on the right lower extremity. Left hallux- 1 cm x 1 cm x 0.1 cm ulceration noted to medial aspect of hallux. No erythema. Minimal serous drainage. No malodor, no tracking, tunneling, undermining, no other clinical signs of infection appreciated. MSK: Minimal pain on palpation of left hallucal ulcer site. No gross deformities appreciated Results - Vital Signs Recent Vital Signs: Last Vital Signs Temp 100.3 F H 11/01/18 15:25 Pulse 103 H 11/01/18 15:25 Resp 20 11/01/18 15:25 BP 135/81 11/01/18 16:19 Pulse Ox 98 11/01/18 15:25 - Labs Result Diagrams: 11/01/18 16:45 11/02/18 05:25 Labs: Laboratory Results - last 24 hr 10/31/18 11/01/18 11/01/18 20:47 05:38 05:50 WBC 11.9 H D RBC 3.94 L Hgb 10.7 L Hct 33.3 L MCV 84.4 MCH 27.0 MCHC 32.0 L RDW 17.8 H Plt Count 413 H Sodium Potassium Chloride Carbon Dioxide Anion Gap BUN Creatinine Est GFR ( Amer) Est GFR (Non-Af Amer) POC Glucose (mg/dL) 238 H 142 H Random Glucose Calcium 11/01/18 11/01/18 11/01/18 05:50 11:12 15:53 WBC RBC Hgb Hct MCV MCH MCHC RDW Plt Count Sodium 135 Potassium 4.4 Chloride 99 Carbon Dioxide 29 Anion Gap 11 BUN 26 H Creatinine 1.6 H Est GFR ( Amer) 51 Est GFR (Non-Af Amer) 42 POC Glucose (mg/dL) 270 H 247 H Random Glucose 128 H Calcium 9.1 Assessment & Plan - Assessment and Plan (Free Text) Assessment: 78M seen for left hallucal diabetic foot wounds Plan: Patient seen and evaluated Plan discussed with Dr. Brown Afebrile, WBC 15.4 Left hallux dressed with DSD Silvadene ordered for future dressing changes No plan for surgical intervention at this time Podiatry will continue to follow while patient in house - Date & Time Date: 11/02/18 Time: 08:51
--- NOTE | 2018-11-01 18:17 | CP.PCM.PN ---
Subjective - Date & Time of Evaluation Date of Evaluation: 11/01/18 Time of Evaluation: 18:16 - Subjective Subjective: I D NOTE CONSULT PREVIOUSLY DICTATED NOCHANGE IN RX Objective - Vital Signs/Intake and Output Vital Signs (last 24 hours): Temp Pulse Resp BP Pulse Ox 100.3 F H 103 H 20 135/81 98 11/01/18 15:25 11/01/18 15:25 11/01/18 15:25 11/01/18 16:19 11/01/18 15:25 - Medications Medications: Current Medications Dextrose (Dextrose 50% Inj) 0 ml IV STAT PRN; Protocol PRN Reason: Hypoglycemia Protocol Dextrose (Glutose 15) 0 gm PO ONCE PRN; Protocol PRN Reason: Hypoglycemia Protocol Furosemide (Lasix) 40 mg IVP BID [facility] Last Admin: 11/01/18 16:19 Dose: 40 mg Glucagon (Glucagen Diagnostic Kit) 0 mg IM STAT PRN; Protocol PRN Reason: Hypoglycemia Protocol Linezolid (Zyvox 600mg/300ml D5w) 600 mg in 300 mls @ 300 mls/hr IVPB Q12 [facility] Last Admin: 11/01/18 08:48 Dose: 300 mls/hr Meropenem 500 mg/ Sodium (Chloride) 100 mls @ 100 mls/hr IVPB Q12H [facility] Last Admin: 11/01/18 17:12 Dose: 100 mls/hr Insulin Human Lispro (Humalog) 0 units SC ACHS [facility]; Protocol Last Admin: 11/01/18 16:15 Dose: 3 unit Insulin Human NPH (Humulin N) 20 units SC QPM [facility] Last Admin: 11/01/18 17:16 Dose: 20 units Insulin Human NPH (Humulin N) 10 units SC QAM [facility] Last Admin: 11/01/18 08:45 Dose: 10 unit Losartan Potassium (Cozaar) 25 mg PO DAILY [facility] Last Admin: 11/01/18 08:44 Dose: 25 mg Rivaroxaban (Xarelto) 15 mg PO DAILY [facility]; Protocol Last Admin: 11/01/18 08:44 Dose: 15 mg Silver Sulfadiazine (Silvadene 1% 20 Gm) 1 ea TOP DAILY [facility] Last Admin: 11/01/18 08:43 Dose: 1 applic Spironolactone (Aldactone) 50 mg PO DAILY [facility] Last Admin: 11/01/18 08:44 Dose: 50 mg Tamsulosin HCl (Flomax) 0.4 mg PO DAILY [facility] Last Admin: 11/01/18 08:44 Dose: 0.4 mg Trimethoprim/Sulfamethoxazole (Bactrim Ss Tab) 1 tab PO DAILY [facility]; Protocol Last Admin: 11/01/18 08:44 Dose: 1 tab Vitamin B Complex/Vit C/Folic Acid (Nephro-Hyacinth) 1 tab PO DAILY [facility] Last Admin: 11/01/18 13:26 Dose: 1 tab Zolpidem Tartrate (Ambien) 10 mg PO [facility] Last Admin: 10/31/18 23:08 Dose: 10 mg - Labs Labs: 11/01/18 16:45 11/01/18 05:50
[2018-11-02] MEDS: Meropenem 500 MG in Sodium Chloride 0.9% 100 ML IVPB SCH ×2 (05:45→17:49)
[2018-11-02 05:56] LABS: CALCIUM 9.1 mg/dL (8.4-10.2)
[2018-11-02] MEDS: Insulin Lispro (humaLOG) 100 Units/ml Inj SC SCH ×4 (06:55→22:04)
[2018-11-02] MEDS: Silver Sulfadiazine 1% Cream (20 gm) TOP SCH (09:17)
[2018-11-02] MEDS: Insulin NPH Human 100 Units/ml Inj SC SCH ×2 (09:18→17:55)
[2018-11-02] MEDS: Multivitamin Vitamin B Complex (Nephro-Vite) Tab PO SCH (09:18)
--- NOTE | 2018-11-02 09:18 | CP.PCM.PN ---
Subjective - Date & Time of Evaluation Date of Evaluation: 11/02/18 Time of Evaluation: 08:30 - Subjective Subjective: The patient was clinically stable and reported continued diuresis following intravenous furosemide. He breathes fairly comfortably when propped up in bed but has significant edema of lower extremities and hip area. Physical therapist report his legs as markedly heavy and edematous and difficult to bend at the hips. The patient has not been able to stand up or get out of bed independently yet. His heart rate was 94 bpm irregularly irregular (his metoprolol was discontinued at the time of his discharge from the hospital in early October) Blood pressure was 126/70 mmHg Jugular venous pressure was not elevated and there were very few rales at both bases. Labs show mild elevation in BUN/creatinine. I have restarted his metoprolol and I expect with control of heart rate he should have better renal perfusion and show further drop in BUN/creatinine The patient spiked a temperature of 100.7F yesterday and there is a mild elevation in his leukocyte count. Urine cultures were drawn and he is being followed by ID Objective - Vital Signs/Intake and Output Vital Signs (last 24 hours): Temp Pulse Resp BP Pulse Ox 99.6 F 105 H 20 123/63 98 11/02/18 07:59 11/02/18 07:59 11/02/18 07:59 11/02/18 07:59 11/02/18 07:59 - Medications Medications: Current Medications Dextrose (Dextrose 50% Inj) 0 ml IV STAT PRN; Protocol PRN Reason: Hypoglycemia Protocol Dextrose (Glutose 15) 0 gm PO ONCE PRN; Protocol PRN Reason: Hypoglycemia Protocol Furosemide (Lasix) 40 mg IVP BID [facility] Last Admin: 11/01/18 16:19 Dose: 40 mg Glucagon (Glucagen Diagnostic Kit) 0 mg IM STAT PRN; Protocol PRN Reason: Hypoglycemia Protocol Linezolid (Zyvox 600mg/300ml D5w) 600 mg in 300 mls @ 300 mls/hr IVPB Q12 [facility] Last Admin: 11/01/18 21:25 Dose: 300 mls/hr Meropenem 500 mg/ Sodium (Chloride) 100 mls @ 100 mls/hr IVPB Q12H [facility] Last Admin: 11/02/18 05:45 Dose: 100 mls/hr Insulin Human Lispro (Humalog) 0 units SC ACHS [facility]; Protocol Last Admin: 11/02/18 06:55 Dose: 2 unit Insulin Human NPH (Humulin N) 20 units SC QPM [facility] Last Admin: 11/01/18 17:16 Dose: 20 units Insulin Human NPH (Humulin N) 10 units SC QAM [facility] Last Admin: 11/01/18 08:45 Dose: 10 unit Losartan Potassium (Cozaar) 25 mg PO DAILY [facility] Last Admin: 11/01/18 08:44 Dose: 25 mg Metoprolol Tartrate (Lopressor) 25 mg PO Q12 [facility] Rivaroxaban (Xarelto) 15 mg PO DAILY [facility]; Protocol Last Admin: 11/01/18 08:44 Dose: 15 mg Silver Sulfadiazine (Silvadene 1% 20 Gm) 1 ea TOP DAILY [facility] Last Admin: 11/01/18 08:43 Dose: 1 applic Spironolactone (Aldactone) 50 mg PO DAILY [facility] Last Admin: 11/01/18 08:44 Dose: 50 mg Tamsulosin HCl (Flomax) 0.4 mg PO DAILY [facility] Last Admin: 11/01/18 08:44 Dose: 0.4 mg Vitamin B Complex/Vit C/Folic Acid (Nephro-Hyacinth) 1 tab PO DAILY [facility] Last Admin: 11/01/18 13:26 Dose: 1 tab Zolpidem Tartrate (Ambien) 10 mg PO HS [facility] Last Admin: 11/01/18 23:45 Dose: Not Given - Labs Labs: 11/01/18 16:45 11/02/18 05:25
[2018-11-02] MEDS: Linezolid 600 mg in D5W 300 ml 600 MG/300 ML BAG IVPB SCH ×2 (09:21→22:03)
--- NOTE | 2018-11-02 11:21 | CP.PCM.PN ---
Subjective - Date & Time of Evaluation Date of Evaluation: 11/02/18 Time of Evaluation: 11:19 - Subjective Subjective: Seated in bedside chair. Has developed extensive edema of both legs to mid thigh. No cyanosis. + generalized tenderness on palpation of LEs. Will request bilateral LE venous duplex scan. May need vascular consult as well. WBC has increased to 15.4? No complaints of dysuria, no fever, no cough. Podiatric foot exam done yesterday. Objective - Vital Signs/Intake and Output Vital Signs (last 24 hours): Temp Pulse Resp BP Pulse Ox 99.6 F 105 H 20 123/63 95 11/02/18 07:59 11/02/18 10:14 11/02/18 07:59 11/02/18 10:14 11/02/18 10:14 - Medications Medications: Current Medications Dextrose (Dextrose 50% Inj) 0 ml IV STAT PRN; Protocol PRN Reason: Hypoglycemia Protocol Dextrose (Glutose 15) 0 gm PO ONCE PRN; Protocol PRN Reason: Hypoglycemia Protocol Furosemide (Lasix) 40 mg IVP BID [facility] Last Admin: 11/02/18 09:18 Dose: 40 mg Glucagon (Glucagen Diagnostic Kit) 0 mg IM STAT PRN; Protocol PRN Reason: Hypoglycemia Protocol Linezolid (Zyvox 600mg/300ml D5w) 600 mg in 300 mls @ 300 mls/hr IVPB Q12 [facility] Last Admin: 11/02/18 09:21 Dose: 300 mls/hr Meropenem 500 mg/ Sodium (Chloride) 100 mls @ 100 mls/hr IVPB Q12H [facility] Last Admin: 11/02/18 05:45 Dose: 100 mls/hr Insulin Human Lispro (Humalog) 0 units SC ACHS [facility]; Protocol Last Admin: 11/02/18 06:55 Dose: 2 unit Insulin Human NPH (Humulin N) 20 units SC QPM [facility] Last Admin: 11/01/18 17:16 Dose: 20 units Insulin Human NPH (Humulin N) 10 units SC QAM [facility] Last Admin: 11/02/18 09:18 Dose: 10 unit Losartan Potassium (Cozaar) 25 mg PO DAILY [facility] Last Admin: 11/02/18 09:18 Dose: 25 mg Metoprolol Tartrate (Lopressor) 25 mg PO Q12 [facility] Rivaroxaban (Xarelto) 15 mg PO DAILY [facility]; Protocol Last Admin: 11/02/18 09:20 Dose: 15 mg Silver Sulfadiazine (Silvadene 1% 20 Gm) 1 ea TOP DAILY [facility] Last Admin: 11/02/18 09:17 Dose: 1 applic Spironolactone (Aldactone) 50 mg PO DAILY [facility] Last Admin: 11/02/18 09:18 Dose: 50 mg Tamsulosin HCl (Flomax) 0.4 mg PO DAILY [facility] Last Admin: 11/02/18 09:20 Dose: 0.4 mg Vitamin B Complex/Vit C/Folic Acid (Nephro-Hyacinth) 1 tab PO DAILY [facility] Last Admin: 11/02/18 09:18 Dose: 1 tab Zolpidem Tartrate (Ambien) 10 mg PO HS [facility] Last Admin: 11/01/18 23:45 Dose: Not Given - Labs Labs: 11/01/18 16:45 11/02/18 05:25 Assessment and Plan (1) Edema of both lower extremities Status: Acute (2) CAD (coronary artery disease) Status: Chronic (3) COPD (chronic obstructive pulmonary disease) Status: Chronic (4) DM2 (diabetes mellitus, type 2) Status: Chronic
--- NOTE | 2018-11-02 13:52 | RAD ---
Date of service: 11/01/2018 PROCEDURE: Left Foot Radiographs. HISTORY: rule out osteomyelitis of hallux COMPARISON: Left foot radiographs 03/18/2016. TECHNIQUE: 3 views obtained. FINDINGS: BONES: Interval amputation of the distal phalanx left great toe and distal half of the proximal phalanx left great toe is identified. Patient's sock which contains radiodense foci obscures evaluation of fine bone and soft tissue details. No interval erosive changes are appreciated or periosteal reaction to suggest osteomyelitis at this time including at the hallux. Medial periarticular lucency is again seen at the 1st metatarsophalangeal joint, unchanged in the interval, potentially indicating gout. Clinically correlate further. Periosteal changes are questioned related to the distal segment proximal phalanx 2nd digit. This is a nonspecific finding. No erosion is appreciated at the cortex or medullary substance at this level of the 2nd digit to further support potential for osteomyelitis here. Chronic flexion deformities are appreciated in the 2nd through 4th digits once again. No fracture, subluxation or dislocation appreciated. A linear, metallic retained radiodense foreign body is identified in the soft tissues between the heads of the 4th and 5th metatarsal bones. No emphysematous soft tissue changes are identified. Diffuse osteopenia suggests osteoporosis. Prominent heterotopic calcifications seen at the hindfoot plantar soft tissues. JOINTS: As above. SOFT TISSUES: As above. OTHER FINDINGS: None. IMPRESSION: No overt sign of osteomyelitis is seen affecting the remaining left great toe which is status post partial amputation of the proximal phalanx and complete amputation of the distal phalanx. However, there is suspicious periosteal reaction related to the distal segment of the proximal phalanx 2nd digit versus soft tissue calcification. No other sign of potential osteomyelitis. Clinically correlate here. Questionable gout based on possible medial periarticular erosion, stable compared to 03/18/2016. Linear metallic radiodensity within soft tissues between the heads of the 4th 5th metatarsal bones may indicate retained foreign body. Clinically correlate.
[2018-11-03] MEDS: Meropenem 500 MG in Sodium Chloride 0.9% 100 ML IVPB SCH ×2 (05:26→13:52)
[2018-11-03 06:14] LABS: HEMOGLOBIN 10.2 g/dL (12.0-18.0); MEAN CELL VOLUME 82.8 fl (80.0-94.0); MEAN CORPUSCULAR HEMOGLOBIN 26.4 pg (27.0-31.0); MEAN CORPUSCULAR HGB CONC 31.9 g/dL (33.0-37.0); RBC 3.84 Mil/uL (4.40-5.90); RED CELL DISTRIBUTION WIDTH 17.8 % (11.5-14.5); WHITE BLOOD COUNT 10.6 K/uL (4.8-10.8)
[2018-11-03 06:19] LABS: CALCIUM 9.1 mg/dL (8.4-10.2)
[2018-11-03] MEDS: Insulin Lispro (humaLOG) 100 Units/ml Inj SC SCH ×4 (06:50→22:09)
--- NOTE | 2018-11-03 08:29 | CP.PCM.PN ---
Subjective - Date & Time of Evaluation Date of Evaluation: 11/03/18 Time of Evaluation: 08:00 - Subjective Subjective: The patient is clinically stable. The patient is in the process of getting ultrasound of lower extremities to rule out the possibility of DVT (in a elderly bedridden pt) He denies significant shortness of breath but is mostly immobilized in his bed. His pedal edema persists. Jugular venous pressure was not elevated and there were no rales. His heart rate was 80 bpm irregularly irregular and his blood pressure was 126/74 mmHg. His labs show gradually rising BUN/creatinine which signifies reduced renal perf usion secondary to reduced cardiac output with aggressive diuresis. The patient is in the process of getting ultrasound of lower extremities. A vascular evaluation has been requested. 3 Objective - Vital Signs/Intake and Output Vital Signs (last 24 hours): Temp Pulse Resp BP Pulse Ox 98.7 F 89 20 108/65 96 11/03/18 08:15 11/03/18 08:15 11/03/18 08:15 11/03/18 08:15 11/03/18 08:15 - Medications Medications: Current Medications Dextrose (Dextrose 50% Inj) 0 ml IV STAT PRN; Protocol PRN Reason: Hypoglycemia Protocol Dextrose (Glutose 15) 0 gm PO ONCE PRN; Protocol PRN Reason: Hypoglycemia Protocol Furosemide (Lasix) 80 mg PO DAILY [facility] Glucagon (Glucagen Diagnostic Kit) 0 mg IM STAT PRN; Protocol PRN Reason: Hypoglycemia Protocol Linezolid (Zyvox 600mg/300ml D5w) 600 mg in 300 mls @ 300 mls/hr IVPB Q12 [facility] Last Admin: 11/02/18 22:03 Dose: 300 mls/hr Meropenem 500 mg/ Sodium (Chloride) 100 mls @ 100 mls/hr IVPB Q12H [facility] Last Admin: 11/03/18 05:26 Dose: 100 mls/hr Insulin Human Lispro (Humalog) 0 units SC ACHS [facility]; Protocol Last Admin: 11/03/18 06:50 Dose: 3 unit Insulin Human NPH (Humulin N) 20 units SC QPM [facility] Last Admin: 11/02/18 17:55 Dose: 20 units Insulin Human NPH (Humulin N) 10 units SC QAM [facility] Last Admin: 11/02/18 09:18 Dose: 10 unit Losartan Potassium (Cozaar) 25 mg PO DAILY [facility] Last Admin: 11/02/18 09:18 Dose: 25 mg Metoprolol Tartrate (Lopressor) 25 mg PO Q12 [facility] Last Admin: 11/02/18 22:03 Dose: 25 mg Rivaroxaban (Xarelto) 15 mg PO DAILY [facility]; Protocol Last Admin: 11/02/18 09:20 Dose: 15 mg Silver Sulfadiazine (Silvadene 1% 20 Gm) 1 ea TOP DAILY [facility] Last Admin: 11/02/18 09:17 Dose: 1 applic Spironolactone (Aldactone) 50 mg PO DAILY [facility] Last Admin: 11/02/18 09:18 Dose: 50 mg Tamsulosin HCl (Flomax) 0.4 mg PO DAILY [facility] Last Admin: 11/02/18 09:20 Dose: 0.4 mg Vitamin B Complex/Vit C/Folic Acid (Nephro-Hyacinth) 1 tab PO DAILY [facility] Last Admin: 11/02/18 09:18 Dose: 1 tab Zolpidem Tartrate (Ambien) 10 mg PO HS [facility] Last Admin: 11/02/18 22:06 Dose: 10 mg - Labs Labs: 11/03/18 05:45 11/03/18 05:45
[2018-11-03] MEDS: Multivitamin Vitamin B Complex (Nephro-Vite) Tab PO SCH (09:10)
[2018-11-03] MEDS: Insulin NPH Human 100 Units/ml Inj SC SCH ×2 (09:11→21:08)
[2018-11-03] MEDS: Silver Sulfadiazine 1% Cream (20 gm) TOP SCH (09:11)
[2018-11-03] MEDS: Linezolid 600 mg in D5W 300 ml 600 MG/300 ML BAG IVPB SCH ×2 (09:14→20:23)
--- NOTE | 2018-11-03 11:25 | CP.PCM.PN ---
Subjective - Date & Time of Evaluation Date of Evaluation: 11/03/18 Time of Evaluation: 11:24 - Subjective Subjective: Case discussed with Cardiology. Seen on morning rounds. Interim events noted. Had venous duplex of LEs done earlier this morning. Had an episode of incontinence earlier this morning. Continues to have low grade fever in the evening. WBC has decreased now in normal range. Labs reviewed. Patient appears fatigued. Dependant edema of both LEs is slightly decreased. Breath sounds are diminished bilaterally w/o wheeze. Scattered dry rales present in the lower lobes. Requested portable CXR today. Will hold furosemide tomorrow as per Cardio. Follow up BMP. Objective - Vital Signs/Intake and Output Vital Signs (last 24 hours): Temp Pulse Resp BP Pulse Ox 98.7 F 89 20 108/65 96 11/03/18 08:15 11/03/18 09:10 11/03/18 08:15 11/03/18 09:10 11/03/18 08:15 - Medications Medications: Current Medications Dextrose (Dextrose 50% Inj) 0 ml IV STAT PRN; Protocol PRN Reason: Hypoglycemia Protocol Dextrose (Glutose 15) 0 gm PO ONCE PRN; Protocol PRN Reason: Hypoglycemia Protocol Furosemide (Lasix) 80 mg PO DAILY [facility] Glucagon (Glucagen Diagnostic Kit) 0 mg IM STAT PRN; Protocol PRN Reason: Hypoglycemia Protocol Linezolid (Zyvox 600mg/300ml D5w) 600 mg in 300 mls @ 300 mls/hr IVPB Q12 [facility] Last Admin: 11/03/18 09:14 Dose: 300 mls/hr Meropenem 500 mg/ Sodium (Chloride) 100 mls @ 100 mls/hr IVPB Q12H [facility] Last Admin: 11/03/18 05:26 Dose: 100 mls/hr Insulin Human Lispro (Humalog) 0 units SC ACHS [facility]; Protocol Last Admin: 11/03/18 06:50 Dose: 3 unit Insulin Human NPH (Humulin N) 20 units SC QPM [facility] Last Admin: 11/02/18 17:55 Dose: 20 units Insulin Human NPH (Humulin N) 10 units SC QAM [facility] Last Admin: 11/03/18 09:11 Dose: 10 unit Losartan Potassium (Cozaar) 25 mg PO DAILY [facility] Last Admin: 11/03/18 09:10 Dose: 25 mg Metoprolol Tartrate (Lopressor) 25 mg PO Q12 [facility] Last Admin: 11/03/18 09:10 Dose: 25 mg Rivaroxaban (Xarelto) 15 mg PO DAILY [facility]; Protocol Last Admin: 11/03/18 09:10 Dose: 15 mg Silver Sulfadiazine (Silvadene 1% 20 Gm) 1 ea TOP DAILY [facility] Last Admin: 11/03/18 09:11 Dose: 1 applic Spironolactone (Aldactone) 50 mg PO DAILY [facility] Last Admin: 11/03/18 09:10 Dose: 50 mg Tamsulosin HCl (Flomax) 0.4 mg PO DAILY [facility] Last Admin: 11/03/18 09:10 Dose: 0.4 mg Vitamin B Complex/Vit C/Folic Acid (Nephro-Hyacinth) 1 tab PO DAILY [facility] Last Admin: 11/03/18 09:10 Dose: 1 tab Zolpidem Tartrate (Ambien) 10 mg PO HS [facility] Last Admin: 11/02/18 22:06 Dose: 10 mg - Labs Labs: 11/03/18 05:45 11/03/18 05:45 Assessment and Plan (1) Edema of both lower extremities Status: Acute (2) CAD (coronary artery disease) Status: Chronic (3) COPD (chronic obstructive pulmonary disease) Status: Chronic (4) DM2 (diabetes mellitus, type 2) Status: Chronic
--- NOTE | 2018-11-03 12:12 | RAD ---
Date of service: 11/03/2018 HISTORY: CHF COMPARISON: Comparison made with prior study 10/27/2018 TECHNIQUE: 1 view obtained. FINDINGS: LUNGS: No focal consolidation. No evidence of brooke pulmonary edema PLEURA: No significant pleural effusion identified, no pneumothorax apparent. CARDIOVASCULAR: Sternotomy wires and CABG clips again noted. Heart appears mildly enlarged. Mild aortic atherosclerotic calcification less well seen on this study as compared to prior exam. OSSEOUS STRUCTURES: No significant abnormalities. VISUALIZED UPPER ABDOMEN: Normal. OTHER FINDINGS: None. IMPRESSION: No focal consolidation. No brooke pulmonary edema
--- NOTE | 2018-11-03 13:38 | CP.PCM.PN ---
Subjective - Date & Time of Evaluation Date of Evaluation: 11/03/18 Time of Evaluation: 13:35 - Subjective Subjective: iI D NOTE CREATININE:2.1 GFR:31 HAVE DECREASEFD DOSE OF MEROPENEM Objective - Vital Signs/Intake and Output Vital Signs (last 24 hours): Temp Pulse Resp BP Pulse Ox 98.7 F 89 20 108/65 96 11/03/18 08:15 11/03/18 09:10 11/03/18 08:15 11/03/18 09:10 11/03/18 08:15 - Medications Medications: Current Medications Dextrose (Dextrose 50% Inj) 0 ml IV STAT PRN; Protocol PRN Reason: Hypoglycemia Protocol Dextrose (Glutose 15) 0 gm PO ONCE PRN; Protocol PRN Reason: Hypoglycemia Protocol Furosemide (Lasix) [address] [facility] Glucagon (Glucagen Diagnostic Kit) 0 mg IM STAT PRN; Protocol PRN Reason: Hypoglycemia Protocol Linezolid (Zyvox 600mg/300ml D5w) 600 mg in 300 mls @ 300 mls/hr IVPB Q12 [facility] Last Admin: 11/03/18 09:14 Dose: 300 mls/hr Meropenem 500 mg/ Sodium (Chloride) 100 mls @ 100 mls/hr IVPB Q24H [facility]; Protocol Insulin Human Lispro (Humalog) 0 units SC ACHS [facility]; Protocol Last Admin: 11/03/18 11:39 Dose: 295 unit Insulin Human NPH (Humulin N) 20 units SC QPM [facility] Last Admin: 11/02/18 17:55 Dose: 20 units Insulin Human NPH (Humulin N) 10 units SC QAM [facility] Last Admin: 11/03/18 09:11 Dose: 10 unit Losartan Potassium (Cozaar) 25 mg PO DAILY [facility] Last Admin: 11/03/18 09:10 Dose: 25 mg Metoprolol Tartrate (Lopressor) 25 mg PO Q12 [facility] Last Admin: 11/03/18 09:10 Dose: 25 mg Rivaroxaban (Xarelto) 15 mg PO DAILY [facility]; Protocol Last Admin: 11/03/18 09:10 Dose: 15 mg Silver Sulfadiazine (Silvadene 1% 20 Gm) [address] [facility] Last Admin: 11/03/18 09:11 Dose: 1 applic Spironolactone (Aldactone) 50 mg PO DAILY [facility] Last Admin: 11/03/18 09:10 Dose: 50 mg Tamsulosin HCl (Flomax) 0.[address] [facility] Last Admin: 11/03/18 09:10 Dose: 0.4 mg Vitamin B Complex/Vit C/Folic Acid (Nephro-Hyacinth) [address] [facility] Last Admin: 11/03/18 09:10 Dose: 1 tab Zolpidem Tartrate (Ambien) 10 mg PO [facility] Last Admin: 11/02/18 22:06 Dose: 10 mg - Labs Labs: 11/03/18 05:45 11/03/18 05:45
[2018-11-04 06:23] LABS: CALCIUM 9.1 mg/dL (8.4-10.2)
[2018-11-04] MEDS: Insulin Lispro (humaLOG) 100 Units/ml Inj SC SCH ×4 (06:55→21:28)
[2018-11-04] MEDS: Linezolid 600 mg in D5W 300 ml 600 MG/300 ML BAG IVPB SCH ×2 (08:59→21:12)
[2018-11-04] MEDS: Silver Sulfadiazine 1% Cream (20 gm) TOP SCH (09:00)
[2018-11-04] MEDS: Multivitamin Vitamin B Complex (Nephro-Vite) Tab PO SCH (09:01)
[2018-11-04] MEDS: Insulin NPH Human 100 Units/ml Inj SC SCH ×2 (09:02→17:17)
--- NOTE | 2018-11-04 12:43 | CP.PCM.PN ---
Subjective - Date & Time of Evaluation Date of Evaluation: 11/04/18 Time of Evaluation: 12:40 - Subjective Subjective: Looks a little stronger today. Speech is fluent, still seems to get confused at times. Had another episode of bowel incontinence today, not diarrhea. Vital signs remain stable, afebrile. Edema of LE is about tjhe same. BMP shows the lytes are okay and the eGFR is essentially the same. Furosemide was held today. Breath sounds are diminished bilaterally, but otherwise okay. Objective - Vital Signs/Intake and Output Vital Signs (last 24 hours): Temp Pulse Resp BP Pulse Ox 97.6 F 98 H 20 126/74 97 11/04/18 10:00 11/04/18 10:00 11/04/18 10:00 11/04/18 10:00 11/04/18 10:00 - Medications Medications: Current Medications Dextrose (Dextrose 50% Inj) 0 ml IV STAT PRN; Protocol PRN Reason: Hypoglycemia Protocol Dextrose (Glutose 15) 0 gm PO ONCE PRN; Protocol PRN Reason: Hypoglycemia Protocol Furosemide (Lasix) 80 mg PO DAILY [facility] Glucagon (Glucagen Diagnostic Kit) 0 mg IM STAT PRN; Protocol PRN Reason: Hypoglycemia Protocol Linezolid (Zyvox 600mg/300ml D5w) 600 mg in 300 mls @ 300 mls/hr IVPB Q12 [facility] Last Admin: 11/04/18 08:59 Dose: 300 mls/hr Meropenem 500 mg/ Sodium (Chloride) 100 mls @ 100 mls/hr IVPB Q24H [facility]; Protocol Last Admin: 11/03/18 13:52 Dose: 100 mls/hr Insulin Human Lispro (Humalog) 0 units SC ACHS [facility]; Protocol Last Admin: 11/04/18 11:43 Dose: 6 unit Insulin Human NPH (Humulin N) 20 units SC QPM [facility] Last Admin: 11/03/18 21:08 Dose: 20 units Insulin Human NPH (Humulin N) 10 units SC QAM [facility] Last Admin: 11/04/18 09:02 Dose: 10 unit Losartan Potassium (Cozaar) 25 mg PO DAILY [facility] Last Admin: 11/04/18 09:03 Dose: 25 mg Metoprolol Tartrate (Lopressor) 25 mg PO Q12 [facility] Last Admin: 11/04/18 09:00 Dose: 25 mg Rivaroxaban (Xarelto) 15 mg PO DAILY [facility]; Protocol Last Admin: 11/04/18 09:01 Dose: 15 mg Silver Sulfadiazine (Silvadene 1% 20 Gm) 1 ea TOP DAILY [facility] Last Admin: 11/04/18 09:00 Dose: 1 applic Spironolactone (Aldactone) 50 mg PO DAILY [facility] Last Admin: 11/04/18 09:03 Dose: 50 mg Tamsulosin HCl (Flomax) 0.4 mg PO DAILY [facility] Last Admin: 11/04/18 09:03 Dose: 0.4 mg Vitamin B Complex/Vit C/Folic Acid (Nephro-Hyacinth) 1 tab PO DAILY [facility] Last Admin: 11/04/18 09:01 Dose: 1 tab Zolpidem Tartrate (Ambien) 10 mg PO HS [facility] Last Admin: 11/03/18 22:56 Dose: 10 mg - Labs Labs: 11/03/18 05:45 11/04/18 05:30 Assessment and Plan (1) Edema of both lower extremities Status: Acute (2) CAD (coronary artery disease) Status: Chronic (3) COPD (chronic obstructive pulmonary disease) Status: Chronic (4) DM2 (diabetes mellitus, type 2) Status: Chronic
[2018-11-04] MEDS: Meropenem 500 MG in Sodium Chloride 0.9% 100 ML IVPB SCH (14:20)
--- NOTE | 2018-11-04 14:41 | CP.PCM.PN ---
Subjective - Date & Time of Evaluation Date of Evaluation: 11/04/18 Time of Evaluation: 08:30 - Subjective Subjective: Pt is AAO x3 main complaint is fatigue has 2+ pitting edema because of rising BUN/Creatinine Lasix was held today Objective - Vital Signs/Intake and Output Vital Signs (last 24 hours): Temp Pulse Resp BP Pulse Ox 97.6 F 98 H 20 126/74 97 11/04/18 10:00 11/04/18 10:00 11/04/18 10:00 11/04/18 10:00 11/04/18 10:00 - Medications Medications: Current Medications Dextrose (Dextrose 50% Inj) 0 ml IV STAT PRN; Protocol PRN Reason: Hypoglycemia Protocol Dextrose (Glutose 15) 0 gm PO ONCE PRN; Protocol PRN Reason: Hypoglycemia Protocol Furosemide (Lasix) 80 mg PO DAILY [facility] Glucagon (Glucagen Diagnostic Kit) 0 mg IM STAT PRN; Protocol PRN Reason: Hypoglycemia Protocol Linezolid (Zyvox 600mg/300ml D5w) 600 mg in 300 mls @ 300 mls/hr IVPB Q12 [facility] Last Admin: 11/04/18 08:59 Dose: 300 mls/hr Meropenem 500 mg/ Sodium (Chloride) 100 mls @ 100 mls/hr IVPB Q24H [facility]; Protocol Last Admin: 11/04/18 14:20 Dose: 100 mls/hr Insulin Human Lispro (Humalog) 0 units SC ACHS [facility]; Protocol Last Admin: 11/04/18 11:43 Dose: 6 unit Insulin Human NPH (Humulin N) 20 units SC QPM [facility] Last Admin: 11/03/18 21:08 Dose: 20 units Insulin Human NPH (Humulin N) 10 units SC QAM [facility] Last Admin: 11/04/18 09:02 Dose: 10 unit Losartan Potassium (Cozaar) 25 mg PO DAILY [facility] Last Admin: 11/04/18 09:03 Dose: 25 mg Metoprolol Tartrate (Lopressor) 25 mg PO Q12 [facility] Last Admin: 11/04/18 09:00 Dose: 25 mg Rivaroxaban (Xarelto) 15 mg PO DAILY [facility]; Protocol Last Admin: 11/04/18 09:01 Dose: 15 mg Silver Sulfadiazine (Silvadene 1% 20 Gm) 1 ea TOP DAILY [facility] Last Admin: 11/04/18 09:00 Dose: 1 applic Spironolactone (Aldactone) 50 mg PO DAILY [facility] Last Admin: 11/04/18 09:03 Dose: 50 mg Tamsulosin HCl (Flomax) 0.4 mg PO DAILY [facility] Last Admin: 11/04/18 09:03 Dose: 0.4 mg Vitamin B Complex/Vit C/Folic Acid (Nephro-Hyacinth) 1 tab PO DAILY [facility] Last Admin: 11/04/18 09:01 Dose: 1 tab Zolpidem Tartrate (Ambien) 10 mg PO [facility] Last Admin: 11/03/18 22:56 Dose: 10 mg - Labs Labs: 11/03/18 05:45 11/04/18 05:30 Assessment and Plan (1) Acute on chronic systolic congestive heart failure Status: Acute (2) Edema of both lower extremities Status: Acute (3) DM2 (diabetes mellitus, type 2) Status: Chronic (4) HTN (hypertension) Status: Chronic
[2018-11-05 06:24] LABS: CALCIUM 9.2 mg/dL (8.4-10.2)
[2018-11-05] MEDS: Insulin Lispro (humaLOG) 100 Units/ml Inj SC SCH ×4 (06:57→21:09)
[2018-11-05] MEDS: Linezolid 600 mg in D5W 300 ml 600 MG/300 ML BAG IVPB SCH ×2 (08:11→21:32)
[2018-11-05] MEDS: Multivitamin Vitamin B Complex (Nephro-Vite) Tab PO SCH (08:12)
[2018-11-05] MEDS: Silver Sulfadiazine 1% Cream (20 gm) TOP SCH (08:12)
[2018-11-05] MEDS: Insulin NPH Human 100 Units/ml Inj SC SCH ×2 (08:13→17:00)
--- NOTE | 2018-11-05 12:46 | CP.PCM.PN ---
Subjective - Date & Time of Evaluation Date of Evaluation: 11/05/18 Time of Evaluation: 12:45 - Subjective Subjective: Podiatry progress note for Dr. Brown 78 y/o male seen and evaluated at bedside for left hallux wound. He denies any new complaints with his ulcers. Denies any new drainage, malodor, erythema, pain or other clinical signs of infection. He is AAO x 3 and NAD at time of visit. Denies any further pedal complaints at this time. Objective - Vital Signs/Intake and Output Vital Signs (last 24 hours): Temp Pulse Resp BP Pulse Ox 98.5 F 96 H 16 131/63 97 11/05/18 07:35 11/05/18 08:14 11/05/18 07:35 11/05/18 08:14 11/05/18 07:35 - Medications Medications: Current Medications Dextrose (Dextrose 50% Inj) 0 ml IV STAT PRN; Protocol PRN Reason: Hypoglycemia Protocol Dextrose (Glutose 15) 0 gm PO ONCE PRN; Protocol PRN Reason: Hypoglycemia Protocol Furosemide (Lasix) 80 mg PO DAILY [facility] Last Admin: 11/05/18 11:12 Dose: Not Given Glucagon (Glucagen Diagnostic Kit) 0 mg IM STAT PRN; Protocol PRN Reason: Hypoglycemia Protocol Linezolid (Zyvox 600mg/300ml D5w) 600 mg in 300 mls @ 300 mls/hr IVPB Q12 [facility] Last Admin: 11/05/18 08:11 Dose: 300 mls/hr Meropenem 500 mg/ Sodium (Chloride) 100 mls @ 100 mls/hr IVPB Q24H [facility]; Protocol Last Admin: 11/04/18 14:20 Dose: 100 mls/hr Insulin Human Lispro (Humalog) 0 units SC ACHS [facility]; Protocol Last Admin: 11/05/18 11:45 Dose: 4 unit Insulin Human NPH (Humulin N) 20 units SC QPM [facility] Last Admin: 11/04/18 17:17 Dose: 20 units Insulin Human NPH (Humulin N) 10 units SC QAM [facility] Last Admin: 11/05/18 08:13 Dose: 10 unit Losartan Potassium (Cozaar) 25 mg PO DAILY [facility] Last Admin: 11/05/18 08:14 Dose: 25 mg Metoprolol Tartrate (Lopressor) 25 mg PO Q12 [facility] Last Admin: 11/05/18 08:12 Dose: 25 mg Rivaroxaban (Xarelto) 15 mg PO DAILY [facility]; Protocol Last Admin: 11/05/18 08:15 Dose: 15 mg Silver Sulfadiazine (Silvadene 1% 20 Gm) 1 ea TOP DAILY [facility] Last Admin: 11/05/18 08:12 Dose: 1 applic Spironolactone (Aldactone) 50 mg PO DAILY [facility] Last Admin: 11/05/18 08:15 Dose: 50 mg Tamsulosin HCl (Flomax) 0.4 mg PO DAILY [facility] Last Admin: 11/05/18 08:14 Dose: 0.4 mg Vitamin B Complex/Vit C/Folic Acid (Nephro-Hyacinth) 1 tab PO DAILY [facility] Last Admin: 11/05/18 08:12 Dose: 1 tab Zolpidem Tartrate (Ambien) 10 mg PO HS [facility] Last Admin: 11/04/18 22:44 Dose: 10 mg - Labs Labs: 11/03/18 05:45 11/05/18 05:30 - Constitutional Appears: Well, Non-toxic, No Acute Distress - Head Exam Head Exam: ATRAUMATIC, NORMOCEPHALIC - Extremities Exam Additional comments: LE focused exam: Vasc: DP/PT pulses non-palpable b/l. Skin temperature warm to warm from proximal to distal. CFT > 3 seconds to all digits. Minimal edema noted to b/l hallux Neuro: Epicritic and protective sensation grossly diminished b/l Derm: no open lesions on the right lower extremity. Left hallux- 1 cm x 1 cm x 0.1 cm ulceration noted to medial aspect of hallux. No erythema. Minimal serous drainage. No malodor, no tracking, tunneling, under mining, no other clinical signs of infection appreciated. MSK: Minimal pain on palpation of left hallucal ulcer site. No gross deformities appreciated - Neurological Exam Neurological Exam: Alert, Awake, Oriented x3 - Psychiatric Exam Psychiatric exam: Normal Affect, Normal Mood Assessment and Plan - Assessment and Plan (Free Text) Assessment: 78 y/o male seen for left hallucal diabetic foot wounds Plan: Patient seen and evaluated Plan discussed with Dr. Brown Chart, labs and vitals reviewed- Afebrile, WBC 10.6 (11/03/18) Left hallux dressed with SSD, DSD No plan for surgical intervention at this time Podiatry will continue to follow while patient in house
[2018-11-05] MEDS: Meropenem 500 MG in Sodium Chloride 0.9% 100 ML IVPB SCH (13:16)
--- NOTE | 2018-11-06 04:36 | CON ---
DATE: 11/03/2018 REQUESTING PHYSICIAN: Dr. Suarez. REASON FOR CONSULTATION: Bilateral lower extremity edema. REPORT OF CONSULTATION: This is an elderly male patient, who was admitted to the hospital and complained of bilateral lower extremity swelling for the past 2 weeks. The patient denies any pain and venous Duplex was normal. There was no hyperpigmentation, no ulcers, no gangrene. PAST MEDICAL HISTORY: Remarkable for heart disease. The patient has a prior 5-vessel bypass, stroke, hypertension, and diabetes. PAST SURGICAL HISTORY: As above. MEDICATIONS: As reviewed in the medical reconciliation sheet. ALLERGIES: NONE. SOCIAL HISTORY: The patient is retired. Does not drink or smoke. FAMILY HISTORY: Noncontributory. REVIEW OF SYSTEMS: SKIN: No acne or eczema. No ulcers or psoriasis. HEAD AND NECK: No migraines, nosebleeds, double vision, sore throat, or hearing disorders. CARDIOVASCULAR: No chest pains or palpitation. RESPIRATORY: No recent cough, cold, or hemoptysis. No asthma, emphysema. GENITOURINARY: No dysuria or hematuria. GASTROINTESTINAL: No abdominal pain, nausea, vomiting, diarrhea, or blood in the stools. MUSCULOSKELETAL: See history of present illness. VASCULAR: No rest pain, ulcers, or claudication. NEUROLOGIC: No seizures, problems swallowing or speaking. The patient states that he is able to ambulate with the aid of a walker. PHYSICAL EXAMINATION: GENERAL: Revealed a pleasant male patient, sitting up in wheel chair. HEAD AND NECK: Neck supple. No masses. Mucous membranes pink. No jaundice. CHEST: No masses. Equal expansion. LUNGS: Clear. Good air entry. CARDIOVASCULAR: Heart sounds 1 and 2 are heard. Pulse, good volume, regular and equal. ABDOMEN: Soft, protuberant. No masses. Bowel sounds present. GENITOURINARY: Male, no discharge. THYROID: No masses, no enlargement. LYMPHATIC: No adenopathy. MUSCULOSKELETAL: Bilateral 1+ edema of the extremities, pitting with no hyperpigmentation, no ulcers. NEUROLOGIC: Alert and oriented. No focal neurologic deficits. IMPRESSION: Bilateral lower extremity edema, probably dependent in nature. RECOMMENDATIONS: Elevation of lower extremities, Douglas wrapping of the lower extremities to control edema. These measures were discussed with the patient. Basim Hartley MD [facility] # [id number]
[2018-11-06 06:30] LABS: CALCIUM 9.3 mg/dL (8.4-10.2)
[2018-11-06] MEDS: Insulin Lispro (humaLOG) 100 Units/ml Inj SC SCH ×4 (06:48→21:31)
[2018-11-06] MEDS: Multivitamin Vitamin B Complex (Nephro-Vite) Tab PO SCH (09:07)
[2018-11-06] MEDS: Insulin NPH Human 100 Units/ml Inj SC SCH ×2 (09:08→18:11)
[2018-11-06] MEDS: Silver Sulfadiazine 1% Cream (20 gm) TOP SCH (09:13)
[2018-11-06] MEDS: Linezolid 600 mg in D5W 300 ml 600 MG/300 ML BAG IVPB SCH ×2 (09:18→20:22)
--- NOTE | 2018-11-06 10:23 | CP.PCM.PN ---
Subjective - Date & Time of Evaluation Date of Evaluation: 11/06/18 Time of Evaluation: 09:35 - Subjective Subjective: The nursing staff and physical therapist report that the patient has not been able to stand up unassisted or getting in or out of bed unassisted. His furosemide was held for couple of days and his BUN/creatinine has slightly come down with an improvement in his GFR. Significant pedal edema persists. His JVP was not elevated but there was significant pedal edema bilaterally. His heart rate was 80 bpm irregularly irregular. His blood pressure was 110/70 mmHg lying down and sitting up. There were no rales. The patient demonstrated profound congestive cardiac failure and low cardiac output syndrome. I will discuss with the patient's daughter further interventions which could be offered. Objective - Vital Signs/Intake and Output Vital Signs (last 24 hours): Temp Pulse Resp BP Pulse Ox 97.6 F 80 20 117/65 98 11/06/18 07:51 11/06/18 09:20 11/06/18 07:51 11/06/18 09:20 11/06/18 07:51 - Medications Medications: Current Medications Dextrose (Dextrose 50% Inj) 0 ml IV STAT PRN; Protocol PRN Reason: Hypoglycemia Protocol Dextrose (Glutose 15) 0 gm PO ONCE PRN; Protocol PRN Reason: Hypoglycemia Protocol Furosemide (Lasix) 40 mg PO DAILY [facility] Glucagon (Glucagen Diagnostic Kit) 0 mg IM STAT PRN; Protocol PRN Reason: Hypoglycemia Protocol Linezolid (Zyvox 600mg/300ml D5w) 600 mg in 300 mls @ 300 mls/hr IVPB Q12 [facility] Last Admin: 11/06/18 09:18 Dose: 300 mls/hr Meropenem 500 mg/ Sodium (Chloride) 100 mls @ 100 mls/hr IVPB Q24H [facility]; Protocol Last Admin: 11/05/18 13:16 Dose: 100 mls/hr Insulin Human Lispro (Humalog) 0 units SC ACHS [facility]; Protocol Last Admin: 11/06/18 06:48 Dose: 2 unit Insulin Human NPH (Humulin N) 20 units SC QPM [facility] Last Admin: 11/05/18 17:00 Dose: 20 units Insulin Human NPH (Humulin N) 10 units SC QAM [facility] Last Admin: 11/06/18 09:08 Dose: 10 unit Losartan Potassium (Cozaar) 25 mg PO DAILY [facility] Last Admin: 11/06/18 09:07 Dose: 25 mg Metoprolol Tartrate (Lopressor) 25 mg PO Q12 [facility] Last Admin: 11/06/18 09:20 Dose: 25 mg Rivaroxaban (Xarelto) 15 mg PO DAILY [facility]; Protocol Last Admin: 11/06/18 09:13 Dose: 15 mg Silver Sulfadiazine (Silvadene 1% 20 Gm) 1 ea TOP DAILY [facility] Last Admin: 11/06/18 09:13 Dose: 1 applic Spironolactone (Aldactone) 50 mg PO DAILY [facility] Last Admin: 11/06/18 09:13 Dose: 50 mg Tamsulosin HCl (Flomax) 0.4 mg PO DAILY [facility] Last Admin: 11/06/18 09:13 Dose: 0.4 mg Vitamin B Complex/Vit C/Folic Acid (Nephro-Hyacinth) 1 tab PO DAILY [facility] Last Admin: 11/06/18 09:07 Dose: 1 tab Zolpidem Tartrate (Ambien) 10 mg PO HS [facility] Last Admin: 11/05/18 21:28 Dose: 10 mg - Labs Labs: 11/03/18 05:45 11/06/18 00:45
--- NOTE | 2018-11-06 11:08 | CP.PCM.PN ---
Subjective - Date & Time of Evaluation Date of Evaluation: 11/06/18 Time of Evaluation: 11:05 - Subjective Subjective: Discussed this morning with Cardiology. Interim events and EMR entries noted. Patient was seen in the gym this morning. Still appears clinically fatigued. Dependant edema of LEs is slowly improving. Seems mentally more clear today. Respiratory status remains status quo. Objective - Vital Signs/Intake and Output Vital Signs (last 24 hours): Temp Pulse Resp BP Pulse Ox 97.6 F 80 20 117/65 98 11/06/18 07:51 11/06/18 10:49 11/06/18 07:51 11/06/18 10:49 11/06/18 10:49 - Medications Medications: Current Medications Dextrose (Dextrose 50% Inj) 0 ml IV STAT PRN; Protocol PRN Reason: Hypoglycemia Protocol Dextrose (Glutose 15) 0 gm PO ONCE PRN; Protocol PRN Reason: Hypoglycemia Protocol Furosemide (Lasix) 40 mg PO DAILY [facility] Glucagon (Glucagen Diagnostic Kit) 0 mg IM STAT PRN; Protocol PRN Reason: Hypoglycemia Protocol Linezolid (Zyvox 600mg/300ml D5w) 600 mg in 300 mls @ 300 mls/hr IVPB Q12 [facility] Last Admin: 11/06/18 09:18 Dose: 300 mls/hr Meropenem 500 mg/ Sodium (Chloride) 100 mls @ 100 mls/hr IVPB Q24H [facility]; Protocol Last Admin: 11/05/18 13:16 Dose: 100 mls/hr Insulin Human Lispro (Humalog) 0 units SC ACHS [facility]; Protocol Last Admin: 11/06/18 06:48 Dose: 2 unit Insulin Human NPH (Humulin N) 20 units SC QPM [facility] Last Admin: 11/05/18 17:00 Dose: 20 units Insulin Human NPH (Humulin N) 10 units SC QAM [facility] Last Admin: 11/06/18 09:08 Dose: 10 unit Losartan Potassium (Cozaar) 25 mg PO DAILY [facility] Last Admin: 11/06/18 09:07 Dose: 25 mg Metoprolol Tartrate (Lopressor) 25 mg PO Q12 [facility] Last Admin: 11/06/18 09:20 Dose: 25 mg Rivaroxaban (Xarelto) 15 mg PO DAILY [facility]; Protocol Last Admin: 11/06/18 09:13 Dose: 15 mg Silver Sulfadiazine (Silvadene 1% 20 Gm) [address] [facility] Last Admin: 11/06/18 09:13 Dose: 1 applic Spironolactone (Aldactone) [address] [facility] Last Admin: 11/06/18 09:13 Dose: 50 mg Tamsulosin HCl (Flomax) 0.[address] [facility] Last Admin: 11/06/18 09:13 Dose: 0.4 mg Vitamin B Complex/Vit C/Folic Acid (Nephro-Hyacinth) [address] [facility] Last Admin: 11/06/18 09:07 Dose: 1 tab Zolpidem Tartrate (Ambien) [address] [facility] Last Admin: 11/05/18 21:28 Dose: 10 mg - Labs Labs: 11/03/18 05:45 11/06/18 00:45 Assessment and Plan (1) Edema of both lower extremities Status: Acute (2) CAD (coronary artery disease) Status: Chronic (3) COPD (chronic obstructive pulmonary disease) Status: Chronic (4) DM2 (diabetes mellitus, type 2) Status: Chronic
[2018-11-06] MEDS ORDERED: Insulin Lispro (humaLOG) 100 Units/ml Inj SC STA (12:27)
[2018-11-06] MEDS: Meropenem 500 MG in Sodium Chloride 0.9% 100 ML IVPB SCH (13:08)
[2018-11-07 06:45] LABS: CALCIUM 9.1 mg/dL (8.4-10.2)
[2018-11-07] MEDS: Insulin Lispro (humaLOG) 100 Units/ml Inj SC SCH ×4 (06:50→21:34)
[2018-11-07] MEDS: Insulin NPH Human 100 Units/ml Inj SC SCH ×2 (09:27→17:42)
[2018-11-07] MEDS: Multivitamin Vitamin B Complex (Nephro-Vite) Tab PO SCH (09:30)
[2018-11-07] MEDS: Silver Sulfadiazine 1% Cream (20 gm) TOP SCH (09:31)
[2018-11-07] MEDS: Linezolid 600 mg in D5W 300 ml 600 MG/300 ML BAG IVPB SCH ×2 (09:35→21:35)
--- NOTE | 2018-11-07 12:26 | CP.PCM.PN ---
Subjective - Date & Time of Evaluation Date of Evaluation: 11/07/18 Time of Evaluation: 08:20 - Subjective Subjective: The patient was not able to do much by way of physical therapy yesterday. Multiple members of nursing staff and physical therapists are required to help him sit up in bed and help him stand up. Ambulation is extremely difficult. The patient has spent a few hours in the chair yesterday. But he has not been able to participate in much by way of physical therapy. The pedal edema has not significantly changed. His heart rate was 80 bpm irregularly irregular and his blood pressure is 120/74 mmHg. His jugular venous pressure was not elevated and there were no rales. His labs show a significant drop in his creatinine and a marked improvement in his GFR. This is due to reduction in his diuretic doses. I have discussed the issue of having him evaluated by a heart failure specialist with him and his daughter. Both of them agree. Objective - Vital Signs/Intake and Output Vital Signs (last 24 hours): Temp Pulse Resp BP Pulse Ox 97.9 F 92 H 18 137/79 98 11/07/18 07:54 11/07/18 09:30 11/07/18 07:54 11/07/18 09:31 11/07/18 07:54 - Medications Medications: Current Medications Dextrose (Dextrose 50% Inj) 0 ml IV STAT PRN; Protocol PRN Reason: Hypoglycemia Protocol Dextrose (Glutose 15) 0 gm PO ONCE PRN; Protocol PRN Reason: Hypoglycemia Protocol Furosemide (Lasix) 40 mg PO DAILY [facility] Last Admin: 11/07/18 09:31 Dose: 40 mg Glucagon (Glucagen Diagnostic Kit) 0 mg IM STAT PRN; Protocol PRN Reason: Hypoglycemia Protocol Linezolid (Zyvox 600mg/300ml D5w) 600 mg in 300 mls @ 300 mls/hr IVPB Q12 [facility] Last Admin: 11/07/18 09:35 Dose: 300 mls/hr Meropenem 500 mg/ Sodium (Chloride) 100 mls @ 100 mls/hr IVPB Q24H [facility]; Protocol Last Admin: 11/06/18 13:08 Dose: 100 mls/hr Insulin Human Lispro (Humalog) 0 units SC ACHS [facility]; Protocol Last Admin: 11/07/18 06:50 Dose: 2 unit Insulin Human NPH (Humulin N) 20 units SC QPM [facility] Last Admin: 11/06/18 18:11 Dose: 20 units Insulin Human NPH (Humulin N) 10 units SC QAM [facility] Last Admin: 11/07/18 09:27 Dose: 10 unit Losartan Potassium (Cozaar) 25 mg PO DAILY [facility] Last Admin: 11/07/18 09:30 Dose: 25 mg Metoprolol Tartrate (Lopressor) 25 mg PO Q12 [facility] Last Admin: 11/07/18 09:29 Dose: 25 mg Rivaroxaban (Xarelto) 15 mg PO DAILY [facility]; Protocol Last Admin: 11/07/18 09:31 Dose: 15 mg Silver Sulfadiazine (Silvadene 1% 20 Gm) 1 ea TOP DAILY [facility] Last Admin: 11/07/18 09:31 Dose: 1 applic Spironolactone (Aldactone) 50 mg PO DAILY [facility] Last Admin: 11/07/18 09:30 Dose: 50 mg Tamsulosin HCl (Flomax) 0.4 mg PO DAILY [facility] Last Admin: 11/07/18 09:30 Dose: 0.4 mg Vitamin B Complex/Vit C/Folic Acid (Nephro-Hyacinth) 1 tab PO DAILY [facility] Last Admin: 11/07/18 09:30 Dose: 1 tab Zolpidem Tartrate (Ambien) 10 mg PO HS [facility] Last Admin: 11/06/18 22:49 Dose: 10 mg - Labs Labs: 11/03/18 05:45 11/07/18 06:15
[2018-11-07] MEDS: Meropenem 500 MG in Sodium Chloride 0.9% 100 ML IVPB SCH (12:49)
[2018-11-07 15:29] VITALS: RESP 20
[2018-11-08 08:10] VITALS: TEMP 98.6; O2SAT 96
[2018-11-08] MEDS: Insulin Lispro (humaLOG) 100 Units/ml Inj SC SCH (08:56)
--- NOTE | 2018-11-08 09:29 | CP.PCM.PN ---
Subjective - Date & Time of Evaluation Date of Evaluation: 11/08/18 Time of Evaluation: 08:50 - Subjective Subjective: The physical therapists report that the patient has not been making much progress as far as physical therapy is concerned. It required 2 physical therapists to get him out of bed and he was not able to ambulate much. He has been out of bed for 3 to 4 hours yesterday but was not able to participate in any physical therapy. He denies any orthopnea. A mild degree of pedal edema persists. His heart rate was 82 bpm irregularly irregular and his blood pressure was 116/70 mmHg. His jugular venous pressure was not elevated. There were no rales. The patient and his daughter are agreeable to going to heart failure unit at [facility]. I await a call back from them to discuss his case. Objective - Vital Signs/Intake and Output Vital Signs (last 24 hours): Temp Pulse Resp BP Pulse Ox 98.6 F 75 20 120/60 96 11/08/18 08:09 11/08/18 08:09 11/08/18 08:09 11/08/18 08:09 11/08/18 08:09 - Medications Medications: Current Medications Dextrose (Dextrose 50% Inj) 0 ml IV STAT PRN; Protocol PRN Reason: Hypoglycemia Protocol Dextrose (Glutose 15) 0 gm PO ONCE PRN; Protocol PRN Reason: Hypoglycemia Protocol Furosemide (Lasix) 40 mg PO DAILY [facility] Last Admin: 11/07/18 09:31 Dose: 40 mg Glucagon (Glucagen Diagnostic Kit) 0 mg IM STAT PRN; Protocol PRN Reason: Hypoglycemia Protocol Linezolid (Zyvox 600mg/300ml D5w) 600 mg in 300 mls @ 300 mls/hr IVPB Q12 JOON Last Admin: 11/07/18 21:35 Dose: 300 mls/hr Meropenem 500 mg/ Sodium (Chloride) 100 mls @ 100 mls/hr IVPB Q24H JOON; Protocol Last Admin: 11/07/18 12:49 Dose: 100 mls/hr Insulin Human Lispro (Humalog) 0 units SC ACHS JOON; Protocol Last Admin: 11/08/18 08:56 Dose: 2 unit Insulin Human NPH (Humulin N) 20 units SC QPM [facility]ON Last Admin: 11/07/18 17:42 Dose: 20 units Insulin Human NPH (Humulin N) 10 units SC QAM [facility] Last Admin: 11/07/18 09:27 Dose: 10 unit Losartan Potassium (Cozaar) 25 mg PO DAILY [facility] Last Admin: 11/07/18 09:30 Dose: 25 mg Metoprolol Tartrate (Lopressor) 25 mg PO Q12 [facility] Last Admin: 11/07/18 21:35 Dose: 25 mg Silver Sulfadiazine (Silvadene 1% 20 Gm) 1 ea TOP DAILY [facility] Last Admin: 11/07/18 09:31 Dose: 1 applic Spironolactone (Aldactone) 50 mg PO DAILY [facility] Last Admin: 11/07/18 09:30 Dose: 50 mg Tamsulosin HCl (Flomax) 0.4 mg PO DAILY [facility] Last Admin: 11/07/18 09:30 Dose: 0.4 mg Vitamin B Complex/Vit C/Folic Acid (Nephro-Hyacinth) 1 tab PO DAILY [facility] Last Admin: 11/07/18 09:30 Dose: 1 tab - Labs Labs: 11/03/18 05:45 11/07/18 06:15
[2018-11-08] MEDS: Insulin NPH Human 100 Units/ml Inj SC SCH (09:37)
[2018-11-08] MEDS: Multivitamin Vitamin B Complex (Nephro-Vite) Tab PO SCH (09:38)
[2018-11-08] MEDS: Silver Sulfadiazine 1% Cream (20 gm) TOP SCH (09:39)
[2018-11-08] MEDS: Linezolid 600 mg in D5W 300 ml 600 MG/300 ML BAG IVPB SCH (09:45)
[2018-11-08 09:50] VITALS: BP 138/64; PULSE 78
--- NOTE | 2018-11-09 09:20 | CP.PCM.DIS ---
Provider - Provider Date of Admission: 10/31/18 16:18 Attending physician: Eric Suarez MD Consults: 10/31/18 17:49 Case Management Referral Routine Comment: Physician Instructions: Reason For Exam: Reason for Referral: Discharge Planning 10/31/18 17:53 Infectious Disease Consult Routine Comment: Consulting Provider: Nick Tian Consulting Physician: Nick Tian Reason for Consult: f/u from [facility]; infected left great toe Podiatry Consult Routine Comment: Consulting Provider: Jay Brown Consulting Physician: Jay Brown Reason for Consult: f/u consult from [facility]; infected left great toe Pulmonology Consult Routine Comment: Consulting Provider: Sekou Bone Consulting Physician: Sekou Bone Reason for Consult: f/u from [facility]; Dx: COPD 11/02/18 11:36 Vascular Surgery Routine Comment: Consulting Provider: Basim Hartley Physician Instructions: diffuse diabetic vascular disease of both LEs Reason For Exam: Eval diabetic vasular disease LEs Time Spent in preparation of Discharge (in minutes): 30 Hospital Course - Lab Results Lab Results: Micro Results 11/02/18 02:00 Urine,Clean Catch Urine Culture - Final No Growth (<1,000 CFU/ML) Most Recent Lab Values WBC 10.6 K/uL (4.8-10.8) 11/03/18 05:45 RBC 3.84 Mil/uL (4.40-5.90) L 11/03/18 05:45 Hgb 10.2 g/dL (12.0-18.0) L 11/03/18 05:45 Hct 31.8 % (35.0-51.0) L 11/03/18 05:45 MCV 82.8 fl (80.0-94.0) 11/03/18 05:45 MCH 26.4 pg (27.0-31.0) L 11/03/18 05:45 MCHC 31.9 g/dL (33.0-37.0) L 11/03/18 05:45 RDW 17.8 % (11.5-14.5) H 11/03/18 05:45 Plt Count 371 K/uL (130-400) 11/03/18 05:45 Sodium 134 mmol/l (132-148) 11/07/18 06:15 Potassium 5.2 MMOL/L (3.6-5.0) H 11/07/18 06:15 Chloride 98 mmol/L (98-107) 11/07/18 06:15 Carbon Dioxide 26 mmol/L (22-30) 11/07/18 06:15 Anion Gap 15 (10-20) 11/07/18 06:15 BUN 56 mg/dl (9-20) H 11/07/18 06:15 Creatinine 1.4 mg/dl (0.8-1.5) 11/07/18 06:15 Est GFR ( Amer) 59 11/07/18 06:15 Est GFR (Non-Af Amer) 49 11/07/18 06:15 POC Glucose (mg/dL) 283 mg/dL (65-110) H 11/08/18 19:32 Random Glucose 164 mg/dL (75-110) H 11/07/18 06:15 Hemoglobin A1c 8.2 % (4.2-6.5) H 11/03/18 05:45 Calcium 9.1 mg/dL (8.4-10.2) 11/07/18 06:15 - Hospital Course Hospital Course: This 78-year-old -[place] male was transferred to the transitional care unit from the acute care section of this facility for a period of physical therapy before returning home. He was treated for congestive cardiac failure by aggressive diuresis using intravenous furosemide twice a day. He had extensive medical history which consisted of long-standing hypertension diabetes mellitus and dyslipidemia and had required coronary bypass graft surgery more than 15 years back. He had developed atrial fibrillation and had moderate to severe mitral regurgitation and a severely depressed left vent ricular systolic dysfunction with an left ventricular ejection fraction of 10 to 15% documented by an echocardiogram in June 2018. The patient had also undergone a nuclear stress test in June 2018 which had failed to reveal any evidence of significant left ventricular ischemia. Patient was also known to have stage II chronic kidney disease. There was significant reduction in his pedal edema with use of intravenous diuresis. The patient continued to receive intravenous diuresis and his creatinine which was 1.6 mg percent on 31 October rapidly serene to 2.1 mg percent on 03 November his GFR which was 51 mL/min on 31 October dropped down to 37 mL/min on 03 November accordingly his diuretics were withheld but with prompt improvement in his BUN/creatinine and improvement in his GFR. In the meantime the patient continued to have an extremely poor improvement in his physical effort tolerance with 3 nurses needed to help him sit up in bed and stand up with the patient was never able to initiate any walking during the 7 days he spent in the transitional care unit. His vital signs essentially remained the same is a creatinine eventually dropped to 1.4 mg percent with his GFR rising to 59 mL/min indicating that his CKD was stage II. The patient was being treated with oral loop diuretic along with Spironolactone and losartan along with metoprolol for beta blockade and rate control. The patient was on rivaroxaban for anticoagulation and presence of atrial fibrillation. He was receiving intravenous antibiotics for superficial ischemic ulcer on his left foot. Because of his failure to progress as far as his physical capacity was concerned because of profound congestive cardiac failure it was felt that additional help from the heart failure section of [facility] would benefit the patient. Accordingly Dr. Morales at [facility] was contacted and the patient was sent to [facility] for intensification of his heart failure treatment. His condition at the time of transfer was satisfactory. Impression: Congestive cardiac failure class III, left ventricular chronic and systolic with atrial fibrillation and moderate to severe mitral regurgitation. Coronary artery disease with status post coronary bypass graft surgery and coronary stenting. Hypertension diabetes mellitus and dyslipidemia. Severe peripheral arterial disease with status post left great toe amputation and superficial ischemic ulcers on left foot. CKD stage II. COPD. History of CVA in the remote past. Discharge Exam - Head Exam Head Exam: ATRAUMATIC, NORMOCEPHALIC Discharge Plan - Follow Up Plan Condition: GOOD Disposition: Trans to Other Acute Care Hosp
== END 2018-11-08 12:50 | disposition short-term general hospital (02) | DRG 291 ==
LOC: H.TCU 16:18
PROVIDERS: ADMIT Internal Medicine Cardiovascular Disease; ATTEND Internal Medicine Cardiovascular Disease
PROC: F07Z9FZ Gait Training/Functional Ambulation Treatment using Assistive, Adaptive, Supportive or Protective Equipment (ICD-10-PCS; principal; 2018-10-31)
PROC: F08Z4FZ Home Management Treatment using Assistive, Adaptive, Supportive or Protective Equipment (ICD-10-PCS; 2018-10-31)
PROC: F07L6FZ Therapeutic Exercise Treatment of Musculoskeletal System - Lower Back / Lower Extremity using Assistive, Adaptive, Supportive or Protective Equipment (ICD-10-PCS; 2018-11-01)
DX: I13.0 Hypertensive heart and chronic kidney disease with heart failure and stage 1 through stage 4 chronic kidney disease, or unspecified chronic kidney disease (principal); I50.23 Acute on chronic systolic (congestive) heart failure; E11.621 Type 2 diabetes mellitus with foot ulcer; E11.51 Type 2 diabetes mellitus with diabetic peripheral angiopathy without gangrene; L97.529 Non-pressure chronic ulcer of other part of left foot with unspecified severity; N18.2 Chronic kidney disease, stage 2 (mild); E11.22 Type 2 diabetes mellitus with diabetic chronic kidney disease; I25.10 Atherosclerotic heart disease of native coronary artery without angina pectoris; I34.0 Nonrheumatic mitral (valve) insufficiency; I48.2 Chronic atrial fibrillation; J44.9 Chronic obstructive pulmonary disease, unspecified; E78.5 Hyperlipidemia, unspecified; E78.00 Pure hypercholesterolemia, unspecified; R29.6 Repeated falls; D64.9 Anemia, unspecified; N31.9 Neuromuscular dysfunction of bladder, unspecified; N40.0 Benign prostatic hyperplasia without lower urinary tract symptoms; I25.2 Old myocardial infarction; Z95.5 Presence of coronary angioplasty implant and graft; Z95.1 Presence of aortocoronary bypass graft; Z89.412 Acquired absence of left great toe; Z86.73 Personal history of transient ischemic attack (TIA), and cerebral infarction without residual deficits; Z79.01 Long term (current) use of anticoagulants; Z79.4 Long term (current) use of insulin; Z87.891 Personal history of nicotine dependence; Z87.01 Personal history of pneumonia (recurrent); Z87.440 Personal history of urinary (tract) infections

== ENCOUNTER 2018-11-08 13:05 | Emergency (ER) | payer MEDICARE ==
[2018-11-08] MEDS ORDERED: Milrinone 1 mg/ml Inj IVP ONE (13:08)
[2018-11-08] MEDS ORDERED: Milrinone 20mg/100ml D5W 100 ML IV SCH (13:15)
[2018-11-08 13:21] VITALS: BMI 30.4
--- NOTE | 2018-11-08 14:00 | ED PDOC ---
HPI: General Adult Time Seen by Provider: 11/08/18 13:07 Chief Complaint (Nursing): Shortness Of Breath Chief Complaint (Provider): Shortness Of Breath History Per: Patient History/Exam Limitations: no limitations Onset/Duration Of Symptoms: Days Current Symptoms Are (Timing): Still Present Additional Complaint(s): 78 year old male with a past medical history of congestive heart failure who was referred to the ED from TCU for CHF. Patient has end stage congestive heart failure and was considered for transfer to [facility] program. However, [facility] requests trial of Milrinone prior to consideration for transfer. Patient has chronic shortness of breath, generalized weakness, and dyspnea on exertion. He offers no other medical complaints at this time. PMD: Dr. Suarez Past Medical History Reviewed: Historical Data, Nursing Documentation, Vital Signs Vital Signs: Last Vital Signs Temp 99.3 F 11/08/18 13:13 Pulse 82 11/08/18 13:13 Resp 20 11/08/18 13:13 BP 115/66 11/08/18 13:13 Pulse Ox 99 11/08/18 13:20 - Medical History PMH: Arthritis, Atrial Fibrillation, CAD, Cardia Arrhythmia, CHF, COPD, CVA, Diabetes, HTN, Hypercholesterolemia, Peripheral Edema, Pneumonia Denies: Alzheimer's Disease, Anemia, Anxiety, Asthma, Bipolar Disorder, Bronchitis, Crohn's Disease, Dementia, Depression, Diverticulitis, Emphysema, Fractures, Gastritis, Gall Bladder Disease, HIV, Hyperthyroidism, Hypothyroi dism, Kidney Stones, Migraine, Mitral Valve Prolapse, Multiple Sclerosis, Osteoporosis, Pancreatitis, Paranoia, Parkinson's Disease, Post Traumatic Stress Disorder, Pulmonary Embolism, Chronic Kidney Disease, Rheumatoid Arthritis, Schizophrenia, Seizures, Sickle Cell Disease, Sexually Transmitted Disease, Sleep Apnea, TIA - Surgical History Surgical History: CABG (5x), Coronary Stent Denies: Appendectomy, Carotid Endarterectomy, Cholecystectomy, Pacemaker, Tonsillectomy - Family History Family History: States: Diabetes, Hypertension - Social History Current smoker - smoking cessation education provided: No Ex-Smoker (has not smoked in the last 12 months): Yes Alcohol: None Drugs: Denies - Immunization History Hx Tetanus Toxoid Vaccination: Yes Hx Influenza Vaccination: Yes Hx Pneumococcal Vaccination: Yes - Home Medications Home Medications: Ambulatory Orders Medication Instructions Recorded Tamsulosin [Flomax] 0.4 mg PO DAILY 07/04/18 Losartan [Cozaar] 25 mg PO DAILY tab 07/07/18 Spironolactone [Aldactone] 50 mg PO DAILY tab 07/07/18 Insulin Human NPH [Humulin N] 10 units SC QAM 10/27/18 Insulin Human NPH [Humulin N] 20 unit SC QPM 10/27/18 Silver Sulfadiazine 1% 20 gm 1 appl TOP DAILY 10/27/18 [Silvadene 1% 20 gm] Linezolid 600 mg in NS 300 ml 600 mg IV Q12 10 Days #20 iv.soln 10/31/18 [Zyvox 600mg/300ml NS] Folic Acid/Vit B Complex and C 1 tab PO DAILY 11/08/18 [Nephro-Hyacinth Tablet] Furosemide [Lasix] 40 mg PO DAILY 11/08/18 Insulin Lispro [humALOG] See Protocol SC ACHS 11/08/18 MEROPENEM 500 MG in NS [Merrem IV 500 mg IV DAILY 11/08/18 500 MG/NS 50 ML] Metoprolol Tartrate [Lopressor] 25 mg PO Q12 11/08/18 - Allergies Allergies/Adverse Reactions: Allergies Allergy/AdvReac Type Severity Reaction Status Date / Time No Known Allergies Allergy Verified 11/08/18 13:12 Review of Systems ROS Statement: Except As Marked, All Systems Reviewed And Found Negative Constitutional: Positive for: Weakness Respiratory: Positive for: Shortness of Breath, Other (dyspnea on exertion ) Physical Exam - Reviewed Nursing Documentation Reviewed: Yes Vital Signs Reviewed: Yes - Physical Exam Appears: Positive for: Non-toxic, No Acute Distress Head Exam: Positive for: ATRAUMATIC, NORMAL INSPECTION, NORMOCEPHALIC Skin: Positive for: Normal Color, Warm, DRY Eye Exam: Positive for: EOMI, Normal appearance, PERRL ENT: Positive for: Normal ENT Inspection Neck: Positive for: Normal, Painless ROM Cardiovascular/Chest: Positive for: Regular Rate, Rhythm Respiratory: Positive for: Rales (minimal rales at bases ). Negative for: Respiratory Distress Gastrointestinal/Abdominal: Positive for: Normal Exam, Soft. Negative for: Tenderness Back: Positive for: Normal Inspection. Negative for: L CVA Tenderness, R CVA Tenderness Extremity: Positive for: Normal ROM, Pedal Edema (1 to 2+ pitting edema ). Negative for: Deformity Neurological/Psych: Positive for: Awake, Alert, Normal Tone, Oriented. Negative for: Motor/Sensory Deficits - ECG O2 Sat by Pulse Oximetry: 99 (RA) Pulse Ox Interpretation: Normal Medical Decision Making Medical Decision Making: Time: 13:08 Plan: --CMP --CBC --Coag --Milrinone IV 14:[address] [facility] [address] Suarez that Milrinone not necessary and they will accept patient for transfer today. Scribe Attestation: Documented by Zee Wright, acting as a scribe for Brigido Shipman MD. Provider Scribe Attestation: All medical record entries made by the Scribe were at my direction and personally dictated by me. I have reviewed the chart and agree that the record accurately reflects my personal performance of the history, physical exam, medical decision making, and the department course for this patient. I have also personally directed, reviewed, and agree with the discharge instructions and disposition. [facility] accepting pt today for CHF program Disposition - Clinical Impression Clinical Impression: CHF (congestive heart failure) - Patient ED Disposition Is Patient to be Admitted: No - Disposition Disposition: Other Institution Disposition Time: 16:04 Condition: FAIR
[2018-11-08 16:04] VITALS: O2SAT 99
[2018-11-08 19:26] VITALS: BP 109/60; PULSE 90; RESP 20; TEMP 97.9
== END 2018-11-08 20:07 | disposition short-term general hospital (02) ==
LOC: H.ER 13:05 → UNDOADMIN 13:08 → H.ERHOLD 13:08 → H.ER 20:07
DX: I50.9 Heart failure, unspecified (principal)